=== PATIENT | female | born 1950 | race Caucasian/White ===

== ENCOUNTER → 2019-09-24 12:38 | Outpatient (CLI) | payer MEDICARE, SELFPAY ==
--- NOTE | 2019-09-24 12:48 | RAD_ITS ---
STUDY: X-RAY - THORACIC SPINE REASON FOR EXAM: Female, 68 years old. THORACIC BACK PAIN TECHNIQUE: 3 view(s) of the thoracic spine were obtained. COMPARISON: None. FINDINGS: Slightly increased upper thoracic kyphosis. There is no substantial scoliosis. Normal vertebral body height without osteolytic or blastic bone lesion. Mild to moderate degenerative disc narrowing at most thoracic levels with fairly extensive bridging spondylitic endplate changes at mid and lower thoracic levels. Atherosclerotic changes of the thoracic aorta. RAD/Thoracic Spine 3 Views IMPRESSION: Slightly increased upper thoracic kyphosis with otherwise normal alignment. Mild to moderate disc narrowing with extensive bridging spondylitic endplate changes of the mid and lower thoracic spine. Electronically Signed: Lois Sheets MD at 22:32 EST , Service support ,
--- NOTE | 2019-09-24 12:55 | RAD_ITS ---
STUDY: X-RAY - LUMBAR SPINE REASON FOR EXAM: Female, 68 years old. LOW BACK PAIN TECHNIQUE: 5 view(s) of the lumbar spine were obtained. COMPARISON: None FINDINGS: Normal lumbar lordosis. Minimal levocurvature of the lumbar spine. Slight degenerative anterolisthesis of L5. Normal vertebral body height without a fracture deformity. Mild disc narrowing at L1-L2. Moderate disc narrowing and spondylitic endplate changes at L2-3 and L3-4. Moderate degenerative disc narrowing and spondylitic endplate changes at L4-5 and L5-S1. Advanced posterior facet arthrosis particularly at L3, L4, L5 and S1. The soft tissue structures are unremarkable. RAD/L/S Spine Min 4 Views IMPRESSION: Slight levocurvature of the lumbar spine with a slight degenerative anterolisthesis of L5. Moderately advanced degenerative disc narrowing and spondylitic endplate changes at most lumbar levels below L2. Advanced hypertrophic facet arthrosis from L3 through S1. Electronically Signed: Lois Sheets MD at 22:30 EST , Service support ,
== END ==
PROVIDERS: Family Provider Family Medicine; PCP Family Medicine; Referring Provider Family Medicine; Visit Provider Family Medicine
DX: M54.6 Pain in thoracic spine (principal); M54.5 Low back pain
CPT/HCPCS: 72072; 72110

== ENCOUNTER 2019-11-11 14:00 | Outpatient (RCR) | payer MEDICARE, SELFPAY ==
--- NOTE | 2019-10-13 14:42 | HP.PTEVAL_ITS ---
Patient's Visit Information CARMEN RODRIGES is a 69 year old F referred to Physical Therapy by Mauricio Swain MD with a diagnosis of Right Hip Pain and Lumbar. Date of Evaluation: 10/13/19 Physical Therapist: Sita Saini DPT - Visit Plan Frequency: 2x /Week Duration: 4 Weeks Plan: Focus on LE and core s/s in an aquatic setting - Subjective Findings: Patient reports that she has problems with her right hip. 2014 injection in the hip and it has progressively gotten worse. Had x-rays which showed bone on bone and plans to have a THR. Not scheduled but plans to have one after therapy. Pain is located in the groin - pain does radiate into the back. Took to the wound center and his Dr. Santiago sent her to the ER to get an x-ray of the spine to rule out fracture- the MD put him on Prednisone which helped to decrease the inflammation. Describes the pain as sharp/shooting and dull and achy. No N/t in the LE. Worst: 07/15 Agg: getting into a car, rolling over in bed, putting on socks and shoes- lifting. Eases: prednisone, pain medication, laying down on her side with pillows under the right knee. Its hard to get there but once she is situated its not so bad- She uses 6 pillows- does not sleep all night- stress and pain. Does not use a cane or walker. Has 3 stairs to get into the house but then she is all on one floor. No loss or change in bowel or bladder. Retired in June- so she is no longer working- is trying to figure out whats next. 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 PMhx: Depression Meds: anti-depressents, - Objective Posture: poor in both sitting and standing- FH, RS increased kyphosis. Gait: antalgic- decreased stance on the right LE with knee buckling- no AD. HR/Tr: able. SLS: unable but does WS with pain. Stairs: non recip with 2 HR. Palpation: tender along paraspinals from thoracic through lumbar, gluts, greater troch and down the ITBand on the right. ROM: lumbar flexion: finger tips to knees, extn: neutral, SB: decreased by 75% rot: decreased by 75% pain with all motions. Hip: flexion: 90 degrees, IR/ER: neutral with pain, Extn: neutral, add/Abd: decreased by 25 % with pain, Knee/Ankle: WNL. Strength: Ankle: 5/5, Knee: 4+/5 HIp: 4-/5 wtih painful testing Core: poor. Flex: HS: severe, Gastroc: moderate. Special Test: screamed when she performed a seated to supine transfer and was unable to roll to her back. Dural Signs: positive on the right. Slump Test: positive - Goals Goal 1:: Patient will be I with HEP and progression Goal Time Frame: 4-6 Weeks Goal 2:: Patient will ambulate >300 feet with a normalized gait pattern Goal Time Frame: 4-6 Weeks Goal 3:: Patient will report 2/10 pain for 1 day Goal Time Frame: 4-6 Weeks Goal 4:: Patient will demo 4+/5 strength in LE Goal Time Frame: 4-6 Weeks Goal 5:: Patient will maintain proper posture t/o tx session to demo increased core s/s. Goal Time Frame: 4-6 Weeks - Rehabilitation Potential Physical Therapy Diagnosis: Patient presents with hypomobility- she has decreased ROM, strength, flex and muscular endurance leading to abnormal gait and increased pain with ADL's. Rehabilitation Potential: Fair - Anticipated Interventions Patient/Client Instruction: Educate patient on: Benefits of Fitness Program Therapeutic Exercise to Include: Strength training, Endurance training, Balance training, Coordination, Agility training, Body mechanics, Postural training, Flexibilty training, Gait and locomotor training, In an aquatic setting, Passive ROM, Active ROM, Dynamic Lumbar Stabilization For the Purpose of:: To improve muscle performance and motor function Thank you for the opportunity to evaluate your patient. For Medicare and Medicare HMO plans, please review the plan of care and approve it. It will need to be FAXED BACK to us at [phone] for Medicare purposes. For Medicare only, by signing this I certify the plan of care. Please let me know if there are questions or concerns regarding this plan of care. Physician Signature: Date:
--- NOTE | 2019-11-11 14:27 | HP.PTDCSUM_ITS ---
HP - PT D/C Summary It has been my pleasure to treat CARMEN RODRIGES under orders from Mauricio Swain MD, for the diagnosis of Right Hip Pain and Lumbar for a total of 9 visit(s). Discharge Date: Please see the following information for a summary of their discharge status. - Subjective Subjective: Patient reports that she feels like a whole new person. Very little pain and walking better. Her back pain is better and she is really happy. 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 - Pain R Hip Pain Intensity (Out of 10): 1 Lumbar Spine Pain Intensity (Out of 10): 1 - Overall Improvement % Improvement: 95 - Objective Objective/Function: Posture: fair in both sitting and standing. Gait: slightly antalgic- decreased stance on the right LE- much improved from IE- smoother pattern. HR/Tr: able. SLS: unable but does WS Stairs: recip with 1 HR. Palpation: tender along paraspinals from thoracic through lumbar, gluts, greater troch and down the ITBand on the right. ROM: lumbar flexion: finger tips to knees, extn: neutral, SB: decreased by 25% rot: decreased by 25% pain with all motions. Hip: flexion: 90 degrees, IR/ER: neutral with pain, Extn: neutral, add/Abd: decreased by 25 % with pain, Knee/Ankle: WNL. Strength: Ankle: 5/5, Knee: 5/5 Hip: 4+/5 Core: poor. Flex: HS: severe, Gastroc: moderate. Special Test:Transfers: indep no screaming. Dural Signs: positive on the right. Slump Test: positive - Goals Goal 1:: Patient will be I with HEP and progression Goal Progress: Goal Met Goal 2:: Patient will ambulate >300 feet with a normalized gait pattern Goal Progress: Progressing Goal 3:: Patient will report 2/10 pain for 1 day Goal Progress: Goal Met Goal 4:: Patient will demo 4+/5 strength in LE Goal Progress: Goal Met Goal 5:: Patient will maintain proper posture t/o tx session to demo increased core s/s. Goal Progress: Progressing - Plan Plan: Discharge to [facility] in the pool with farhat singh - D/C Information If there are questions or concerns regarding this patient's physical therapy, please feel free to call me at [phone]. Thank you for the referral of this patient. Sincerely, MATA FloresT
== END 2019-11-11 19:00 | disposition home or self-care (01) ==
LOC: PT 14:00
PROVIDERS: Family Provider Family Medicine; PCP Family Medicine; Referring Provider Orthopaedic Surgery; Visit Provider Orthopaedic Surgery
DX: M16.11 Unilateral primary osteoarthritis, right hip (principal); M54.41 Lumbago with sciatica, right side
CPT/HCPCS: 97113; 97161; 97164

== ENCOUNTER → 2019-11-12 13:24 | Outpatient (CLI) | payer MEDICARE, SELFPAY ==
[2019-11-12 13:59] LABS: Absolute Lymphocyte Count 1.87 X10^3/uL (0.83-4.51); Absolute Neutrophil Count 4.9 X10^3/uL (2.0-7.7); Basophil# 0.03 X10^3/uL; Basophil% 0.4 % (0-1); Eosinophil# 0.12 X10^3/uL; Eosinophils% 1.6 % (0-5); Hematocrit 44.9 % (37-47); Hemoglobin 14.9 g/dL (12.0-15.0); Lymphocyte # 1.87 X10^3/ul (4.0); Lymphocyte % 24.3 % (19-41); Mean Corp Hgb Conc 33.2 g/dL (32-36); Mean Corpuscular Hgb 30.3 pg (27.0-32.0); Mean Corpuscular Volume 91.4 fL (81-99); Mean Platelet Vol. 9.9 fl (6.2-12.0); Monocyte# 0.71 X10^3/uL; Monocyte% 9.2 % (0-10); NRBC Flagged by Analyzer 0 % (0-5); Neutrophil # 4.92 X10^3/uL (2.7-7.7); Neutrophil % 64.1 % (47-70); Platelet Count 234 K/mm3 (150-450); RBC Distribution Width CV 12.3 % (11.6-14.6); RBC Distribution Width SD 40.8 fl (35.1-43.9); Red Blood Count 4.91 M/mm3 (4.2-5.4); White Blood Count 7.7 K/mm3 (4.4-11.0)
[2019-11-12 14:24] LABS: AST(SGOT) 23 U/L (15-37); Alanine Aminotransfer ALT/SGPT 29 U/L (13-56); Albumin, Serum 4.2 g/dL (3.2-5.0); Alkaline Phosphatase 93 U/L (45-117); Anion Gap 2 (5-15); BUN 16 mg/dL (7-18); BUN/Creat Ratio 18.4 RATIO (10-20); Calcium,Total 9.2 mg/dL (8.5-10.1); Chloride 106 mmol/L (98-107); Cholesterol 164 mg/dL (200); Creatinine, Serum 0.87 mg/dL (0.55-1.02); EST Glomerular Filtration Rate 68 mL/min (>60); Est Glom Filt Rate - Afr Amer 83 mL/min (>60); Globulin 4.2 g/dL (2.2-4.2); Glucose 81 mg/dL (74-106); High Density Lipoprotein 64 mg/dL; Protein, Total 8.4 g/dL (6.4-8.2); Sodium Level 139 mmol/L (136-145); Triglycerides 94 mg/dL; Very Low Density Lipoprotein 19 mg/dL (5-40)
== END ==
PROVIDERS: PCP Family Medicine; Referring Provider Family Medicine; Visit Provider Family Medicine
DX: E78.5 Hyperlipidemia, unspecified (principal); Z51.81 Encounter for therapeutic drug level monitoring
CPT/HCPCS: 36415; 80053; 80061; 85025

== ENCOUNTER → 2020-06-15 08:38 | Outpatient (CLI) | payer MEDICARE, SELFPAY ==
[2020-06-15 08:44] LABS: Bacteria 0 SEEN /hpf (None Seen); Mucous, Urine 0 SEEN /hpf (<or=2+); Red Blood Cells-Urine 0 SEEN /hpf (0-5)
[2020-06-15 12:29] LABS: Absolute Lymphocyte Count 1.38 X10^3/uL (0.83-4.51); Absolute Neutrophil Count 3.4 X10^3/uL (2.0-7.7); Basophil# 0.02 X10^3/uL; Basophil% 0.4 % (0-1); Eosinophil# 0.07 X10^3/uL; Eosinophils% 1.3 % (0-5); Hemoglobin 14.7 g/dL (12.0-15.0); Lymphocyte # 1.38 X10^3/ul (4.0); Lymphocyte % 25.9 % (19-41); Mean Corp Hgb Conc 33.4 g/dL (32-36); Mean Corpuscular Hgb 30.8 pg (27.0-32.0); Mean Corpuscular Volume 92.1 fL (81-99); Mean Platelet Vol. 10.4 fl (6.2-12.0); Monocyte# 0.47 X10^3/uL; Monocyte% 8.8 % (0-10); NRBC Flagged by Analyzer 0 % (0-5); Neutrophil # 3.37 X10^3/uL (2.7-7.7); Neutrophil % 63.2 % (47-70); Platelet Count 237 K/mm3 (150-450); RBC Distribution Width CV 11.9 % (11.6-14.6); RBC Distribution Width SD 40.4 fl (35.1-43.9); Red Blood Count 4.78 M/mm3 (4.2-5.4); White Blood Count 5.3 K/mm3 (4.4-11.0)
[2020-06-15 13:04] LABS: Color, Urine Yellow (Yellow); Glucose, Dipstick Normal (Normal); Ketone-Dipstick Negative (Negative); Leukocyte Esterase-Dipstick 25 /ul (Negative); Nitrite-Dipstick Negative (Negative); Occult Blood-Urine 25 /ul (Negative); Protein-Dipstick Negative (Negative); Urine Bilirubin Dipstick Negative (Negative); Urine Clarity Clear (Clear); Urine Urobilinogen Normal (Normal)
[2020-06-15 13:09] LABS: Squamous Epithelial Cells - UA 0-5 SEEN /hpf (5-10); White Blood Cells 0-5 SEEN /hpf (0-5)
[2020-06-15 13:16] LABS: Erythrocyte Sedimentation Rate 19 mm/hr (0-30)
[2020-06-15 13:24] LABS: AST(SGOT) 22 U/L (15-37); Alanine Aminotransfer ALT/SGPT 27 U/L (13-56); Albumin, Serum 4.1 g/dL (3.2-5.0); Alkaline Phosphatase 88 U/L (45-117); Anion Gap 7 (5-15); BUN 15 mg/dL (7-18); BUN/Creat Ratio 17.9 RATIO (10-20); CRP 3.44 mg/L (0.0-3.0); Calcium,Total 8.9 mg/dL (8.5-10.1); Chloride 106 mmol/L (98-107); Creatinine, Serum 0.84 mg/dL (0.55-1.02); EST Glomerular Filtration Rate 71 mL/min (>60); Est Glom Filt Rate - Afr Amer 86 mL/min (>60); Glucose 96 mg/dL (74-106); Potassium 4.2 mmol/L (3.5-5.1); Protein, Total 8.1 g/dL (6.4-8.2); Sodium Level 139 mmol/L (136-145)
[2020-06-16 09:51] LABS: CMV Acute Antibody IgM < 30.0 AU/mL (0.0-29.9); CMV Antibody IgG < 0.60 U/mL (0.00-0.59)
[2020-06-16 18:44] LABS: ANTINUCLEAR ANTIBODIES DIRECT Negative (Negative)
[2020-06-18 07:42] LABS: EBV Acute VCA IgM < 36.0 U/mL (0.0-35.9); EBV Nuclear Antigen IgG > 600.0 U/mL (0.0-17.9)
== END ==
PROVIDERS: PCP Family Medicine; Visit Provider Family Medicine
DX: R59.0 Localized enlarged lymph nodes (principal); R68.83 Chills (without fever); R39.198 Other difficulties with micturition
CPT/HCPCS: 36415; 80053; 81001; 85025; 85652; 86038; 86140; 86225; 86235; 86644; 86645; 86664; 86665

== ENCOUNTER → 2020-06-26 11:17 | Outpatient (CLI) | payer MEDICARE, SELFPAY ==
--- NOTE | 2020-06-26 11:20 | US_ITS ---
STUDY: SUPERFICIAL ULTRASOUND - BILATERAL CERVICAL REGION. REASON FOR EXAM: Female, 69 years old. ENLARGED LYMPH NODES OF NECK TECHNIQUE: A superficial ultrasound was performed with real-time and static collado-scale imaging. COMPARISON: None. FINDINGS: Multiple cervical lymph nodes are seen. The largest on the right measures 1.5 cm x 1.2 cm x 0.7 cm. This has a benign appearance. The largest on the left cervical region measures 1.5 cm x 1.1 cm x 0.9 cm. The appeared to be benign as well. US/Head/Neck Soft Tissue IMPRESSION: Findings suggestive of benign-appearing bilateral cervical lymph nodes. Electronically Signed: Papo Cunningham, at 13:51 EDT , Service support ,
== END ==
PROVIDERS: PCP Family Medicine; Referring Provider Family Medicine; Visit Provider Family Medicine
DX: R59.0 Localized enlarged lymph nodes (principal)
CPT/HCPCS: 76536

== ENCOUNTER → 2020-07-17 13:41 | Outpatient (CLI) | payer MEDICARE, SELFPAY ==
[2020-07-05 12:09] VITALS: BMI 32.8
--- NOTE | 2020-07-17 13:46 | CT_ITS ---
HISTORY: RIGHT HIP REPLACEMENT. TECHNIQUE: Noncontrast bone protocol CT of the hips and knees was performed without contrast per preoperative planning protocol. 2D reformats were performed by the technologist. Number of images including paperwork: 1189. A radiation dose optimization technique was used for this scan. COMPARISON: None FINDINGS: BONES: No acute fracture. JOINTS: No subluxation. Severe degenerative changes of the right hip with joint space narrowing, subchondral sclerosis, some chondral cystic changes and osteophyte formation. Moderate degenerative changes of the left hip. Degenerative changes of the knees, severe in the medial compartments in moderate in the lateral and patellofemoral compartments.. Degenerative changes of the visible spine, sacroiliac joints and symphysis pubis. SOFT TISSUES: Unremarkable. FOREIGN BODY: No radiopaque foreign body. PELVIS: Colonic diverticulosis. Decompressed bladder. CT/Extremity Lower without Contra IMPRESSION: Degenerative changes of the hips and knees with severe degenerative changes of the right hip. Individualized dose optimization techniques were used for this CT. at 0557 Reported and signed by: Lety Rossi MD Electronically Signed: Lety Rossi MD at 5:57 EDT Tel , Service support ,
== END ==
PROVIDERS: PCP Family Medicine; Referring Provider Orthopaedic Surgery; Visit Provider Orthopaedic Surgery
DX: M16.11 Unilateral primary osteoarthritis, right hip (principal)
CPT/HCPCS: 73700

== ENCOUNTER 2020-08-01 14:44 | Observation (INO) | payer MEDICARE, SELFPAY ==
[2020-07-05 12:09] VITALS: BMI 32.8
--- NOTE | 2020-07-26 10:50 | EKG12_ITS ---
Test Reason : PRE OP Blood Pressure : / mmHG Vent. Rate : 073 BPM Atrial Rate : 073 BPM P-R Int : 134 ms QRS Dur : 078 ms QT Int : 400 ms P-R-T Axes : 049 -17 051 degrees QTc Int : 440 ms Normal sinus rhythm Left ventricular hypertrophy Abnormal ECG Confirmed by MARYCRUZ LY, ALAN ([id number]), editorial project manager EDWIN ANDRADE ([id number]) on 07/28/2020 11:12:40 AM Referred By: Gabino Sheikh Confirmed By:ALAN JOEL MD
[2020-07-26 11:46] LABS: Absolute Neutrophil Count 4.1 X10^3/uL (2.0-7.7); Basophil# 0.02 X10^3/uL; Basophil% 0.3 % (0-1); Eosinophil# 0.09 X10^3/uL; Eosinophils% 1.4 % (0-5); Hematocrit 43.6 % (37-47); Hemoglobin 14.5 g/dL (12.0-15.0); Lymphocyte % 23.8 % (19-41); Mean Corp Hgb Conc 33.3 g/dL (32-36); Mean Corpuscular Hgb 30.4 pg (27.0-32.0); Mean Corpuscular Volume 91.4 fL (81-99); Mean Platelet Vol. 9.8 fl (6.2-12.0); Monocyte# 0.62 X10^3/uL; Monocyte% 9.8 % (0-10); NRBC Flagged by Analyzer 0 % (0-5); Neutrophil # 4.05 X10^3/uL (2.7-7.7); Neutrophil % 64.4 % (47-70); Platelet Count 262 K/mm3 (150-450); RBC Distribution Width CV 11.8 % (11.6-14.6); RBC Distribution Width SD 39.5 fl (35.1-43.9); Red Blood Count 4.77 M/mm3 (4.2-5.4); White Blood Count 6.3 K/mm3 (4.4-11.0)
[2020-07-26 11:59] LABS: International Normalized Ratio 1.1; Partial Thromboplast Time 28.3 Seconds (24.1-36.2); Prothrombin Time (Protime)PT. 13.2 SECONDS (11.7-14.9)
[2020-07-26 12:07] LABS: Magnesium 2.1 mg/dL (1.6-2.6)
[2020-07-26 12:22] LABS: ALB/GLOB Ratio 0.8 RATIO (0.9-2.4); AST(SGOT) 21 U/L (15-37); Alanine Aminotransfer ALT/SGPT 26 U/L (13-56); Albumin, Serum 3.7 g/dL (3.2-5.0); Alkaline Phosphatase 87 U/L (45-117); Anion Gap 5 (5-15); BUN 16 mg/dL (7-18); BUN/Creat Ratio 17.7 RATIO (10-20); Calcium,Total 8.6 mg/dL (8.5-10.1); Chloride 104 mmol/L (98-107); Creatinine, Serum 0.91 mg/dL (0.55-1.02); EST Glomerular Filtration Rate 65 mL/min (>60); Est Glom Filt Rate - Afr Amer 79 mL/min (>60); Globulin 4.4 g/dL (2.2-4.2); Glucose 100 mg/dL (74-106); Potassium 4.2 mmol/L (3.5-5.1); Protein, Total 8.1 g/dL (6.4-8.2); Sodium Level 137 mmol/L (136-145)
[2020-08-01] VITALS (11 sets, daily range): BP systolic 108–154; BP diastolic 64–97; PULSE 69–86; RESP 14–18; TEMP 36.2–36.8; O2SAT 94–100; BMI 31.7
--- NOTE | 2020-08-01 07:26 | HP.PCM_ITS ---
History and Physical Date of Admission: 08/01/20 ADDENDUM Addendum entered and electronically signed by Gabino Sheikh DO 07/05/20 15:35: Assessment & Plan Problems 1. Primary osteoarthritis of right hip M16.11 2. DDD (degenerative disc disease), lumbosacral M51.37 3. Lumbar radiculopathy M54.16 4. Lumbar paraspinal muscle spasm M62.830 Plan - Dr. Gabino Sheikh DO Obtained X-rays of patient's BL hips and lumbar x-rays from 09/2019. Personally reviewed x-rays. There is no obvious fracture, dislocation, or lucency noted. Patient educated that she does have bone on bone OA of her right hip and she does have DDD of her lumbosacral area. Patient educated that her right groin pain is coming from the OA and the lower buttock pain is coming from the back. Patient educated that she can have a total right hip replacement and for the back she can trial PT or back bracing or NSAIDs. She was on prednisone about 2 months ago. Recommended a muscle relaxer today. Risks, benefits and alternatives of surgery reviewed including but not limited to bleeding, infection, nerve, artery and/or tissue damage, fracture, VTE, leg length discrepancy, dislocation, need for hip precautions, continued pain and expected post-operative course. Recommended use of the eWave Interactive robotic assist and this will require her to have a CT scan prior to surgery. The patient understands all the risks and does wish to proceed with written consent. Educ ated that she will need to follow the hip precautions after surgery because she is at an increased risk for hip dislocation after surgery D/T her back stiffness. It will take her about 2-3 months but 1-2 yrs for full recovery. We will need medical clearance from her PCP. Educated that she should not be changing her husbands chronic wound dressings d/t his wound being infected and we do not want any bacteria around her incision after surgery. Educated that she will need to ask her husbands PCP for home health care. Follow up 2 weeks post op or sooner if pain, swelling, numbness or associated symptoms, or concerns develop. All questions answered. Patient in agreement of plan. Orders Orders: HIP, UNI W/ Pelvis 2-3 Views Today M25.551, M25.552 Medications New: tizanidine 2 mg PO TID PRN 40 caps 0RF muscle spasticity Intake Vital Signs 07/05/20 Height 5 ft 6 in 07/05/20 Weight: 203 lb 07/05/20 BMI 32.8 Intake Visit Reasons: Bilat hips Accompanied by: Daughter Is patient in pain?: Yes Pain scale (1-10): 5 Allergies sulfamethoxazole [From Bactrim] Allergy (Mild, Verified 07/05/20 12:10) burning skin trimethoprim [From Bactrim] Allergy (Mild, Verified 07/05/20 12:10) burning skin Medications buspirone 10 mg tablet ea PO 07/05/20 [History Confirmed 07/05/20] citalopram 40 mg tablet mg PO 07/05/20 [History Confirmed 07/05/20] tizanidine 2 mg capsule 2 mg PO TID PRN #40 cap 07/05/20 [Rx Confirmed 07/05/20] tramadol 50 mg tablet mg PO 07/05/20 [History Confirmed 07/05/20] Is last menstrual period known: No PFSH Surgical History (Updated 07/05/20 @ 12:13 by Agnes Rush) H/O foot surgery (Acute) HPI Bilat hips: Details: Parts of this documentation were recorded by a scribe, this documentation accurately reflects the service provided and the decisions made by me, Dr. Gabino Sheikh, DO 07/05/20 [id number]. CARMEN RODRIGES is a 69 year old F NEW patient here today for BL hip pain. She is here today for a second opinion on her hip pain. She saw [facility] and was told she needs a right hip replacements. She states that she has BL hip pain she states that the right hip is worse and she was limping and she was supposed to have the right hip replaced and she went to PT and had help off on her surgery. She states that the left hip pain is new. She has BL lower buttock pain and right groin pain. She has pain with sitting and adduction or abduction of her right hip while she is in bed. She has had an injection of her right hip was over 6 months ago and was effective for a while. She does take tramadol and Aleve for her pain. Denies any radiating leg pain. Denies numbness, tingling or other associated symptoms. She also has lower back pain. Right hip pain has been increasing over the last 10 years. Left hip pain started over the last 3 months. Denies any left groin pain. Denies any back surgery or injections or injuries. She had tried home health aide caregiver and accupuncture. She has had prednisone for her back. ROS Musc Reports abnormal walking, Reports joint pain, Reports back pain, Reports joint swelling, Reports muscle weakness, Denies numbness, Denies radiating pain into limb, Reports stiffness, Denies tingling Skin/Breast Denies redness, Denies lesions, Denies itching, Denies rash, Denies skin swelling Neuro Yes abnormal walking, No numbness, No tingling Ortho Exam General General: Yes no acute distress Neurologic: Yes alert, Yes oriented x3 Psychologic: Yes reasonable and appropriate Right Hip Skin: No Ecchymosis, No soft tissue swelling, No Erythema Special Tests: No TTP Greater Troch, Yes FADIR, Yes FADER Navin test: 1 Homans Sign: No HIP: 0 internal rotation with groin pain 15 external rotation with groin pain Left Hip Skin/Wound: No Ecchymosis, No soft tissue swelling, No Erythema Hip: Absent eccymosis, soft tissue swelling or erythema HIP: TTP over sacroiliac area iliosacral junction pain 10 internal roation without groin pain 80 external rotation Supplemental Info 07/05/2020 x-ray right hip advanced arthrosis with subchondral sclerosis large bone spurs 09/24/2019 x-ray lumbar spine: Moderately advanced Degenerative disc disease lower lumbar spine worse L5-S1 facet arthrosis AdvancedAdvanced lower lumbar multilevel, Anterior listhesis L5 Assessment & Plan Problems 1. Primary osteoarthritis of right hip M16.11 2. DDD (degenerative disc disease), lumbosacral M51.37 3. Lumbar radiculopathy M54.16 4. Lumbar paraspinal muscle spasm M62.830 Plan Obtained X-rays of patient's BL hips and lumbar x-rays from 09/2019. Personally reviewed x-rays. There is no obvious fracture, dislocation, or lucency noted. Patient educated that she does have bone on bone OA of her right hip and she does have DDD of her lumbosacral area. Patient educated that her right groin pain is coming from the OA and the lower buttock pain is coming from the back. Patient educated that she can have a total right hip replacement and for the back she can trial PT or back bracing or NSAIDs. She was on prednisone about 2 months ago. Recommended a muscle relaxer today. Risks, benefits and alternatives of surgery reviewed including but not limited to bleeding, infection, nerve, artery and/or tissue damage, fracture, VTE, leg length discrepancy, dislocation, need for hip precautions, continued pain and expected post-operative course. Recommended use of the eWave Interactive robotic assist and this will require her to have a CT scan prior to surgery. The patient understands all the risks and does wish to proceed with written consent. Educated that she will need to follow the hip precautions after surgery because she is at an increased risk for hip dislocation after surgery D/T her back stiffness. It will take her about 2-3 months but 1-2 yrs for full recovery. We will need medical clearance from her PCP. Educated that she should not be changing her husbands chronic wound dressings d/t his wound being infected and we do not want any bacteria around her incision after surgery. Educated that she will need to ask her husbands PCP for home health care. Follow up 2 weeks post op or sooner if pain, swelling, numbness or associated symptoms, or concerns develop. All questions answered. Patient in agreement of plan. Orders Orders: HIP, UNI W/ Pelvis 2-3 Views Today M25.551, M25.552 Medications New: tizanidine 2 mg PO TID PRN 40 caps 0RF muscle spasticity Coding Level of Care Code Off vis,new,level 3 Diagnoses Primary osteoarthritis of right hip M16.11 DDD (degenerative disc disease), lumbosacral M51.37 Lumbar radiculopathy M54.16 Lumbar paraspinal muscle spasm M62.830 I have re-examined the patient. There are no clinical changes since date of exam
[2020-08-01 07:40] LABS: Bedside Glucose 103 mg/dL (70-110)
[2020-08-01] MEDS: Lactated Ringers 1,000 ML 999 ML IV (07:52)
[2020-08-01] MEDS: Acetaminophen 500 MG Tablet 1000 MG PO ×2 (07:53→21:06)
[2020-08-01] MEDS: Gabapentin 600 MG Tablet PO (07:58)
[2020-08-01] MEDS: Celecoxib 200 MG Capsule 400 MG PO (07:58)
[2020-08-01] MEDS: Scopolamine 1mg/72hr Patch 1 PATCH TRANSDERM. (07:59)
[2020-08-01] MEDS: Cefazolin 2 GM in 0.9% Normal Saline 100 ML IV (12:15)
[2020-08-01] MEDS: dexAMETHasone 10 MG/ML Vial IV (12:48)
[2020-08-01] MEDS: Lactated Ringers 1,000 ML 125 ML IV (15:41)
--- NOTE | 2020-08-01 15:44 | RAD_ITS ---
STUDY: X-RAY - PELVIS AND RIGHT HIP REASON FOR EXAM: Female, 69 years old. TOTAL HIP WITH ANA, TECHNIQUE: 2 views of the pelvis and hip. COMPARISON: None. FINDINGS: Limited visualization of the iliac wings, sacroiliac joints and sacrum. Normal bilateral superior and inferior pubic rami. Normal pubic symphysis. Normal bilateral ischial tuberosities. There is a right hip prosthesis in satisfactory alignment. Post surgical changes in the adjacent soft tissue. Normal left hip. RAD/Hip Min 2 Views (Portable) IMPRESSION: Status post total right hip replacement with postsurgical changes. Electronically Signed: Lavell Amaya DO at 22:10 EDT Tel [phone], Service support ,
--- NOTE | 2020-08-01 15:44 | OP.PCM_ITS ---
Report of Operation Date of Procedure: 08/01/20 Description of Surgical Findings:: Preoperative diagnosis: Right hip DJD Postoperative diagnosis: Same Procedure: CT-guided Makoplasty assisted right total hip arthroplasty Implants: Anna Accolade II stem size 4, 132 degree neck angle 0 neck length 54 mm Trident II acetabular shell with 25 mm cancellous screw 36 mm ceramic head Anesthesia: Spinal, general she was given spinal however to delay in surgery it was felt safest to proceed with general once the case actually started EBL: 150 cc Complications: None Condition: Stable to PACU Indication for procedure: This is a 69-year-old female who has had long-standing arthrosis of the hip who has failed conservative treatment and wished to undergo total hip arthroplasty. We did discuss operative versus nonoperative intervention including risks of bleeding, infection , nerve artery tissue damage, need for further surgery, fracture, leg length discrepancy dislocation blood clot and need for postoperative physical therapy and postoperative expectations. An informed consent was signed. Procedure: Patient was met in the preoperative holding area once again the operative extremity was identified by both patient and physician and was marked. Patient was met by anesthesia general anesthesia was started. patient was then positioned in the lateral decubitus position on a well-padded pegboard with an axillary roll. All bony prominences were checked and padded. The patient was prepped and draped in the usual sterile fashion. A timeout was called to ensure the proper patient procedure and extremity were being contemplated. Anatomic landmarks were palpated and marked for a standard posterior lateral approach. Prior to this the ASIS was palpated and 3 fingerbreadths proximal to this 3 pins were placed at a 45 degree angle into the iliac crest with good purchase, stab incisions were made with a 15 blade into the skin prior to placement. The Makoplasty array was then secured. A 10 blade scalpel was used to make a posterior incision through the skin and subcutaneous tissue. retractors were used and electrocautery was used to maintain meticulous hemostasis and dissect full-thickness flaps until the gluteal fascia was reached. The gluteal fascia was incised in line with the gluteal fibers. The bursal tissue was then freed from the underside and a Charnley retractor was placed. The femoral trochanteric checkpoint was placed and leg length was assessed using the trochanteric checkpoint and an EKG lead that was placed on the knee prior to prepping the leg .the fat pad was then elevated off of the external rotators with electrocautery and the external rotators were dissected off of the greater trochanter including the piriformis and were tagged with #1 Ethibond for later repair. The joint capsule opened with posterior trapdoor technique. The hip was surgically dislocated. The measurement on the preoperative CT from the top of the lesser trochanter to the femoral neck cut was marked Hohmann was placed around the lesser trochanter. A neck cutting guide was used to barrett the neck with a Bovie and an oscillating saw was used complete the femoral neck cut. The femoral head was then removed and sized. We then turned our attention to the acetabulum. A Bovie was used to make a perforation in the anterior joint capsule and a Medel retractor was placed this was repeated in the 6 o'clock position and a wide mely was placed there. With a long handled knife the labr al and pulvinar tissue were removed. We then registered the acetabulum with the pointing array and confirmed our landmarks. Once the socket was thoroughly prepared and labral tissue pulmonary was removed we single reamed with the robotic arm. We then used the robotic arm to position the acetabular implant and impacted it into place under robotic guidance. We then proceeded to place a posterior superior screw by drilling first measuring and inserting the screw. We then inserted a trial liner. And turned our attention back to the femur at this point a femoral elevator was used. As well as a pointed wide Hohmann around the lesser trochanter and a Hohmann to help retract the gluteus medius. A box chisel was used to remove excess lateral neck followed by a canal finder and a lateralizing reamer. This was followed by sequential broaches. Attention was made of the version within the canal based on preoperative templating. Once the final broach was seated we then trialed reduced the hip it was determined that a 132 degree neck angle with a 0 neck length was the appropriate size. We then checked stability with shuck testing as well as flexion and internal rotation. then proceeded with hip extension and checked leg lengths at the knees and heels as well as with the trochanteric checkpoint and knee EKG lead. At this point trials were removed. A liner was inserted to the cup. The femoral stem was inserted. We re-trialed and then proceeded to impact the femoral head onto the Harpal taper. We then surgically reduce the hip check stability again and leg lengths and were satisfied. Betadine rinse was allowed to sit for 5 minutes while everyone changed their gloves. Thorough irrigation was performed. Followed by closure of the external rotators with #2 FiberWire followed by closure of gluteal fascia with #1 Ethibond. 0 Vicryl fat stitches and 2-0 Vicryl subcutaneous stitches and norah in the skin. A pulls were placed in the pin sites over the iliac crest with Xeroform 4 x 4 and OpSite. dressing was applied to incisional area with Mepilex Ag and an abduction pillow was placed. Patient tolerated the procedure well there was no intraoperative complications all counts were correct and the patient was brought back to the PACU in stable condition
[2020-08-01] MEDS: Cefazolin 1 GM/50 ML BAG IV (21:00)
[2020-08-01] MEDS: Ketorolac 15 MG/ML Vial IV (21:05)
[2020-08-01] MEDS: Senna/Docusate Sodium 1 Tablet 2 TABLET PO (21:06)
[2020-08-02] MEDS: 0.9% Saline Lock 10 ML Syringe IV ×3 (00:23→11:37)
[2020-08-02] MEDS: oxyCODONE 5 MG Tablet PO ×6 (00:29→22:43)
[2020-08-02 00:31] VITALS: BP 114/67; PULSE 90; RESP 18; TEMP 36.6; O2SAT 94
[2020-08-02 04:48] VITALS: BP 108/61; PULSE 83; RESP 18; TEMP 37.1; O2SAT 98
[2020-08-02] MEDS: Cefazolin 1 GM/50 ML BAG IV ×2 (04:51→11:37)
[2020-08-02] MEDS: APIXABAN 2.5 MG TABLET PO ×2 (06:09→18:01)
[2020-08-02] MEDS: Acetaminophen 500 MG Tablet 1000 MG PO ×3 (06:09→22:24)
[2020-08-02 07:04] LABS: Hematocrit 37.6 % (37-47); Hemoglobin 12.3 g/dL (12.0-15.0); Mean Corp Hgb Conc 32.7 g/dL (32-36); Mean Corpuscular Hgb 30.5 pg (27.0-32.0); Mean Corpuscular Volume 93.3 fL (81-99); Mean Platelet Vol. 9.8 fl (6.2-12.0); Platelet Count 229 K/mm3 (150-450); RBC Distribution Width CV 12.1 % (11.6-14.6); RBC Distribution Width SD 41.7 fl (35.1-43.9); Red Blood Count 4.03 M/mm3 (4.2-5.4); White Blood Count 12.3 K/mm3 (4.4-11.0)
[2020-08-02 07:25] LABS: Anion Gap 4 (5-15); BUN 15 mg/dL (7-18); BUN/Creat Ratio 15.2 RATIO (10-20); Calcium,Total 8.3 mg/dL (8.5-10.1); Chloride 108 mmol/L (98-107); Creatinine, Serum 0.98 mg/dL (0.55-1.02); EST Glomerular Filtration Rate 59 mL/min (>60); Est Glom Filt Rate - Afr Amer 72 mL/min (>60); Estimated Creatinine Clearance 51.94 ml/min; Glucose 122 mg/dL (74-106); Potassium 4.4 mmol/L (3.5-5.1); Sodium Level 138 mmol/L (136-145)
[2020-08-02 08:12] VITALS: BP 105/57; PULSE 74; RESP 18; TEMP 37; O2SAT 98
--- NOTE | 2020-08-02 08:23 | NURSING ---
adjusted temp on [facility] machine
--- NOTE | 2020-08-02 08:45 | PCM.PN.ORT ---
Subjective: Patient is doing okay she has been up to chair but has not done physical therapy as of my rounding. Pain is controlled while sitting and slept well no other complaints. - Physical Exam Vitals/I&O's: Vital Signs Temp Pulse Resp BP Pulse Ox 98.6 F 74 18 105/57 L 98 08/02/20 08:12 08/02/20 08:12 08/02/20 08:12 08/02/20 08:12 08/02/20 08:12 Oxygen Flow Rate (L/min) 6 Oxygen Delivery Method Room Air Weight: 202 lb 13.204 oz Body Mass Index (BMI) 31.7 Intake and Output for Last 24 Hours 07/31/20 08/01/20 08/02/20 23:59 23:59 23:59 Intake Total 2050.08 / 2050.08 1185.42 / 1185.42 Output Total 850 / 850 1275 / 1275 Balance 1200.08 / 1200.08 -89.58 / -89.58 General: Alert, Oriented x3, Cooperative, No apparent distress Extremities: - - Dressing on clean dry and intact compartment soft neurovascular intact Laboratory Results 08/02/20 06:26: WBC 12.3 H, RBC 4.03 L, Hgb 12.3, Hct 37.6, MCV 93.3, MCH 30.5, MCHC 32.7, RDW Std Deviation 41.7, RDW Coeff of Sachin 12.1, Plt Count 229, MPV 9.8 08/02/20 06:26: Sodium 138, Potassium 4.4, Chloride 108 H, Carbon Dioxide 26.0, Anion Gap 4 L, BUN 15, Creatinine 0.98, Estim Creat Clear Calc 51.94, Est GFR (MDRD) Af Amer 72, Est GFR (MDRD) Non-Af 59 L, BUN/Creatinine Ratio 15.2, Glucose 122 H, Calcium 8.3 L Current Medications Acetaminophen (Acetaminophen 500 Mg Tablet) 1,000 mg PO Q8 [facility] Last Admin: 08/02/20 06:09 Dose: 1,000 mg Documented by: Apixaban (Apixaban 2.5 Mg Tablet) 2.5 mg PO BID@0700,1900 [facility] Last Admin: 08/02/20 06:09 Dose: 2.5 mg Documented by: Buspirone HCl (Buspirone 5 Mg Tablet) 10 mg PO DAILY [facility] Cefazolin Sodium () 1 gm in 50 mls @ 100 mls/hr IV Q8H [facility] Stop: 08/02/20 12:29 Last Infusion: 08/02/20 05:24 Dose: Infused Documented by: Sodium Chloride () 250 mls @ 15 mls/hr IV .[id number] PRN PRN Reason: Saline Flush Sodium Chloride () 250 mls @ 15 mls/hr IV .[id number] PRN PRN Reason: Additional IVPB Infusion Influenza Virus Vaccine Quadrival (Influenza Vaccine (6mos+)/Pf 0.5 Ml Syringe) 0.5 ml IM .ONCE ONE Stop: 08/02/20 10:01 Ketorolac Tromethamine (Ketorolac 15 Mg/Ml Vial) 15 mg IV Q6H PRN PRN PRN Reason: Pain Score 1-5 Stop: 08/03/20 14:43 Last Admin: 08/01/20 21:05 Dose: 15 mg Documented by: Ondansetron HCl (Ondansetron 4 Mg/2 Ml Vial) 4 mg IV Q6H PRN PRN PRN Reason: NAUSEA Oxycodone HCl (Oxycodone 5 Mg Tablet) 5 - 10 mg PO Q4H PRN PRN PRN Reason: Pain Score 4-10 Last Admin: 08/02/20 06:09 Dose: 10 mg Documented by: Senna/Docusate Sodium (Senna/Docusate Sodium 1 Tablet) 2 tablet PO BID [facility]AN[facility]A Last Admin: 08/01/20 21:06 Dose: 2 tablet Documented by: Sodium Chloride (0.9% Saline Lock 10 Ml Syringe) 10 - 40 ml IV UD PRN PRN Reason: SALINE FLUSH Last Admin: 08/02/20 04:51 Dose: 10 ml Documented by: Tizanidine HCl (Tizanidine Hcl 2 Mg Tablet) 2 mg PO TID PRN PRN Reason: muscle spasticity Medical Necessity - Tobacco Use Smoking Status: Never smoker Tobacco Use: Non-smoker Assessment/Plan Postop day #1 right total hip arthroplasty. Doing well pain controlled ice machine not cooling will discussed with nursing. Patient will require physical therapy this a.m. and if comfortable and safe will be discharged home. DVT prophylaxis teds and Eliquis x3 weeks. Follow-up in the office 2 weeks
--- NOTE | 2020-08-02 08:51 | PCM.DC.ORTHO ---
Discharge Diet: No Restrictions Weight Bearing Status: Weight bearing as tolerated Keep extremity elevated above heart level: Operative Extremity Call your doctor if you observe: Shortness of breath, Chest pain Additional Instructions: Begin daily showering warm water antibacterial soap postop day #3( 72hrs Post-operatively) and then daily. Leave the dressing on for 72 hours postoperatively then may remove prior to first shower and change dressing daily after this until no drainage for 2 consecutive days then may leave open to air. Follow hip precautions that were reviewed in hospital. Wear compression stockings, may remove at night. Start physical therapy as directed in hospital. Call Dr. Sheikh's office with any concerns. Allergies/Adverse Reactions: Allergies sulfamethoxazole [From Bactrim] Allergy (Mild, Verified 08/01/20 07:22) burning skin trimethoprim [From Bactrim] Allergy (Mild, Verified 08/01/20 07:22) burning skin thiopental [From Pentothal] Allergy (Verified 08/01/20 07:22) Anaphylaxis Medications to take at Discharge buspirone 10 mg tablet 10 mg PO DAILY 07/05/20 citalopram 40 mg tablet 40 mg PO DAILY 07/05/20 tizanidine 2 mg capsule 2 mg PO TID PRN #40 cap 07/05/20 Multivit with Calcium,Iron,Min [Multiple Vitamins For Women] 1 ea PO DAILY 07/17/20 Acetaminophen [Tylenol] 1,000 mg PO Q8 #100 tab 08/02/20 Apixaban [Eliquis] 2.5 mg PO BID@0700,1900 #42 tab 08/02/20 Oxycodone [Oxyir] 5 - 10 mg PO Q4H PRN PRN #60 tablet 08/02/20 The following prescriptions were given: Apixaban [Eliquis] 2.5 mg PO BID@0700,1900 #42 tab Transmission Status: Pending to [facility] Oxycodone [Oxyir] 5 - 10 mg PO Q4H PRN PRN #60 tablet PRN Reason: Pain Score 4-10 Transmission Status: Sent to [facility] Acetaminophen [Tylenol] 1,000 mg PO Q8 #100 tab Transmission Status: Pending to [facility] Primary Care Physician: Leslie Santiago DO [Primary Care Provider] - Test Results: Test results from this visit will be discussed in further detail at your follow-up appointment, if applicable. Please Follow Up With: Gabino Sheikh DO - 2 weeks
[2020-08-02] MEDS: busPIRone 5 MG Tablet 10 MG PO (10:06)
[2020-08-02] MEDS: Senna/Docusate Sodium 1 Tablet 2 TABLET PO ×2 (10:06→22:24)
--- NOTE | 2020-08-02 10:15 | CASEMGMT ---
DESHAUN FUENTES Face to Face with patient for initial transition planning/care coordination assessment. DESHAUN FUENTES introduced self and role at [facility]. Patient sitting in chair, alert and oriented. Patient willing to participate in assessment and is able to answer all questions appropriately. Care providers, pharmacy, and demographics verified. Patient wishes to discharge home and is setup with [facility] for outpatient therapy. Patient states she has no further needs or concerns at this time. CM to follow for discharge planning needs that may arise. PCP: Jack Specialists: [facility] Pharmacy: [facility] Insurance: [employer] [facility] Prescription Benefit: yes Living Will/HPOA: yes, Deepak Hassan LNOK: , daughter Living Arrangements: patient lives with in a single story home with 5 steps and railing to enter the home. Patient was independent at home prior to surgery. Transportation: , daughter DME/HHC: patient states she has a rollator. Therapy recommending [facility]. Patient prefers [facility] for DME. Patient is setup with [facility] for outpatient therapy starting tomorrow. DESHAUN FUENTES called Dr. Sheikh's office and requested script for [facility] be faxed to this CM. When script received, will send referral to [facility] and arrange for delivery to patient's room prior to discharge. Disposition Plan: Patient to discharge home with outpatient therapy, family support, and follow-up plans in place. Chante ESTRADA, RN, CM
--- NOTE | 2020-08-02 11:00 | CASEMGMT ---
RN GINA received script for [facility]. Referral made to [facility] and arranged for deliver of walker to patient's room prior to discharge.
--- NOTE | 2020-08-02 11:47 | NURSING ---
CLARISSA WALKER DELIVERED BY [facility]
--- NOTE | 2020-08-02 14:00 | NURSING ---
discharge discussed w/ patient. pt verbalized she feels unsafe to go home at this time. states she has a disabled at home whom will not be able to assist her and asking about staying tonight. noted patient requiring cuing with assistance with walker and slightly unsteady. informed pt will page Dr. Sheikh to discuss discharge.
[2020-08-02 14:05] VITALS: BP 115/64; PULSE 73; RESP 18; TEMP 36.9; O2SAT 95
[2020-08-02] MEDS: tiZANidine HCl 2 MG Tablet PO (18:14)
[2020-08-02 19:53] VITALS: BP 112/57; PULSE 79; RESP 18; TEMP 36.9; O2SAT 94
[2020-08-03 02:30] VITALS: BP 104/56; PULSE 79; RESP 18; TEMP 36.6; O2SAT 93
[2020-08-03] MEDS: APIXABAN 2.5 MG TABLET PO (06:04)
[2020-08-03] MEDS: Acetaminophen 500 MG Tablet 1000 MG PO ×2 (06:04→13:06)
[2020-08-03] MEDS: 0.9% Saline Lock 10 ML Syringe IV (06:37)
[2020-08-03 06:55] LABS: Hematocrit 37.8 % (37-47); Hemoglobin 11.8 g/dL (12.0-15.0); Mean Corp Hgb Conc 31.2 g/dL (32-36); Mean Corpuscular Hgb 30.1 pg (27.0-32.0); Mean Corpuscular Volume 96.4 fL (81-99); Mean Platelet Vol. 9.7 fl (6.2-12.0); Platelet Count 189 K/mm3 (150-450); RBC Distribution Width CV 12.6 % (11.6-14.6); RBC Distribution Width SD 44.9 fl (35.1-43.9); Red Blood Count 3.92 M/mm3 (4.2-5.4); White Blood Count 9.8 K/mm3 (4.4-11.0)
[2020-08-03 08:30] VITALS: BP 122/70; PULSE 84; RESP 18; TEMP 36.8; O2SAT 96
--- NOTE | 2020-08-03 09:45 | CASEMGMT ---
DESHAUN FUENTES in to discuss HARTMAN form with patient. RN GINA explained HARTMAN form to patient, patient voiced understanding. Patient signed HARTMAN form and filed in chart. Patient provided copy of signed HARTMAN form. Patient had no further questions or concerns at this time.
[2020-08-03] MEDS: busPIRone 5 MG Tablet 10 MG PO (10:48)
== END 2020-08-03 13:22 | disposition home or self-care (01) ==
LOC: SDC 14:52 → MS3 14:52
PROVIDERS: Anesthesiology; Admitting Provider Orthopaedic Surgery; PCP Family Medicine; Referring Provider Orthopaedic Surgery; Visit Provider Orthopaedic Surgery
PROC: 8E0Y0CZ Robotic Assisted Procedure of Lower Extremity, Open Approach (ICD-10-PCS; CPT 27130; principal; 2020-08-01 09:30)
DX: M16.11 Unilateral primary osteoarthritis, right hip (principal); Z20.828 Contact with and (suspected) exposure to other viral communicable diseases; Z23 Encounter for immunization; M51.17 Intervertebral disc disorders with radiculopathy, lumbosacral region; Z79.899 Other long term (current) drug therapy; M62.830 Muscle spasm of back; F32.9 Major depressive disorder, single episode, unspecified; Z86.718 Personal history of other venous thrombosis and embolism; Z86.19 Personal history of other infectious and parasitic diseases; G47.30 Sleep apnea, unspecified
CPT/HCPCS: 01214; 27130; S2900; 36415; 73502; 80048; 80053; 82962; 83735; 85025; 85027; 85610; 85730; 86850; 86900; 86901; 87081; 87635; 93005; 96361; 96365; 96366; 96375; 97110; 97116; 97162; 97166; 97530; 97535; 99218; 99251; C1713; C1776; C9803; G0008; J7050; J7120; 90686; A4216; G0378; G0379; G0463; J2405; U0003

== ENCOUNTER 2020-08-09 10:24 | Emergency (ER) | payer MEDICARE, SELFPAY ==
[2020-08-01 16:45] VITALS: BMI 31.7
[2020-08-09 10:25] VITALS: BP 145/79; PULSE 79; RESP 17; TEMP 36.4; O2SAT 97; BMI 32.3
--- NOTE | 2020-08-09 10:44 | ED.DCSUM_ITS ---
History of Present Illness Chief Complaint: Nausea/Vomiting Informant: Patient Onset: Weeks - 1 Context: Gradual Onset Timing: Continuous Quality: nausea Location: abd Current Severity: Severe Maximum Severity: Severe Worsened by: taking oxycodone Relieved by: nothing but hasn't tried any meds yet Associated Symptoms: yesterday, RLQ burning abd pain Narrative: Patient had arthritis in the right hip and had a total hip arthroplasty less than 1 week ago, she has been taking oxycodone for the pain, and has been nauseated since the surgery. Every time she takes oxycodone, the nausea gets worse. Therefore she decreased the dose that she has been taking. She has had some recent discharge from her surgical wound. Nausea became severe yesterday, and at one point she developed sudden onset burning right lower quadrant discomfort that is not as bad now but still present. She called her doctor, she was seen by her orthopedic physician Dr. Sheikh this morning, told that the wound looks good without any signs of infection, and recommended that she take the nausea medication that was prescribed to her yesterday that she has not obtained quite yet. Instead of getting this medication, she states that she feels so sick that she presents here to the ER for evaluation and treatment. She has been urinating, and without difficulty. She has had a decreased appetite due to the nausea, and has been drinking some fluids but thinks that she probably needs more. She had a prior appendectomy, D&C, no other abdominal surgeries that she can recall at this time. She denies any chest pain, shortness of breath, cough, fevers, but has had some headache. - Past Medical History (1) Osteoarthritis of right hip Status: Chronic Past Medical History - Allergies and Home Meds Allergies/Adverse Reactions: Allergies sulfamethoxazole [From Bactrim] Allergy (Mild, Verified 08/09/20 10:25) burning skin trimethoprim [From Bactrim] Allergy (Mild, Verified 08/09/20 10:25) burning skin thiopental [From Pentothal] Allergy (Verified 08/09/20 10:25) Anaphylaxis Primary Care Physician: Leslie Santiago DO [Primary Care Provider] - Smoking Status: Never smoker Review of Systems General: Reports: Malaise. Denies: Chills, Fever, Sweats Eyes: Denies: Visual changes - bilaterally, Diplopia ENT: Denies: Bilateral ear pain, Rhinorrhea, Sore throat Cardiovascular: Denies: Chest pain, Palpitations Respiratory: Denies: Dyspnea, Cough, Dyspnea on exertion Gastrointestinal: Reports: Abdominal pain, Nausea. Denies: Diarrhea, Melena, Hematochezia Genitourinary: Denies: Dysuria, Hematuria, Frequency Musculoskeletal: Reports: Extremity Pain - R hip postoperative -- not uncontrolled. Denies: Neck pain, Back pain, Swelling Skin: Reports: Wounds - w/ occasional discharge, right hip surgical wound. Denies: Rash Neurological: Reports: Headache - can't describe. Denies: Weakness, Numbness Physical Exam Vital Signs/Narrative: Vital Signs Temp Pulse Resp BP Pulse Ox 08/09/20 10:25 97.5 F L 79 17 145/79 H 97 Inital Vital Signs reviewed: Yes General: Well nourished, Well developed, No Acute Distress Head: Normocephalic, Atraumatic Eyes: Perrl, EOMI ENT: Moist mucous membranes, No rhinorrhea Neck: Supple, Nontender Cardiovascular: Regular rate, Regular rhythm, No murmurs. Negative for: Tachycardia Respiratory: No distress, CTA bilaterally, Chest nontender Abdomen: Soft, Nondistended, Normal bowel sounds, Tender - RLQ only, Guarding - involuntary, inconsistent. Negative for: Rebound tenderness Back: Nontender, Normal Inspection. Negative for: CVA tenderness Extremities: Nontender, No edema Skin: Normal color, No rash, No Trauma, - - Right hip surgical wounds x2 clean, dry, intact, no sign of erythema/infection, no discharge expressible, norah all intact, no dehiscence. Neurological: Alert, Oriented x3, Cranial nerves II-XII grossly intact, Normal Strength, Normal Sensation, Normal Gait - While using walker Psychological: - - Very anxious Diagnostic/Tx/Re-eval Impressions Brain CT 08/09/20 10:47 IMPRESSION: Chronic involutional changes of the brain. Electronically Signed: Papo Cunningham, at 12:21 EST , Service support , Abdomen/Pelvis CT 08/09/20 11:20 IMPRESSION: 3 mm calculus in the proximal left ureter causing a mild degree of left hydronephrosis and hydroureter. Electronically Signed: Papo Cunningham, at 12:23 EST , Service support , 08/09/20 10:47 CT Brain [Brain/Head without Contrast] [CT] Stat 08/09/20 11:20 Abdomen/Pelvis without Cont [CT] Stat Laboratory Results 08/09/20 08/09/20 08/09/20 11:05 11:05 13:05 WBC 8.2 RBC 3.95 L Hgb 12.0 Hct 37.2 MCV 94.2 MCH 30.4 MCHC 32.3 RDW Std Deviation 42.4 RDW Coeff of Sachin 12.2 Plt Count 284 MPV 9.2 Immature Gran % (Auto) 1.700 H Neut % (Auto) 78.4 H Lymph % (Auto) 9.8 L [place] % (Auto) 8.4 Eos % (Auto) 1.5 Baso % (Auto) 0.2 Absolute Neuts (auto) 6.5 Absolute Lymphs (auto) 0.81 L Nucleated RBC % 0 Sodium 138 Potassium 4.2 Chloride 105 Carbon Dioxide 30.0 Anion Gap 3 L BUN 16 Creatinine 0.89 Estim Creat Clear Calc 55.06 Est GFR (MDRD) Af Amer 81 Est GFR (MDRD) Non-Af 67 BUN/Creatinine Ratio 18.0 Glucose 103 Calcium 8.8 Total Bilirubin 0.50 AST 21 ALT 28 Alkaline Phosphatase 85 Troponin I < 0.015 Total Protein 7.5 Albumin 3.1 L Globulin 4.4 H Albumin/Globulin Ratio 0.7 L Lipase 92 Urine Color Yellow Urine Clarity Clear Urine pH 6.5 Ur Specific [place] 1.010 Urine Protein Negative Urine Glucose (UA) Normal Urine Ketones Negative Urine Occult Blood 10 H Urine Nitrite Negative Urine Bilirubin Negative Urine Urobilinogen Normal Ur Leukocyte Esterase Negative Urine RBC 0 SEEN Urine WBC 0 SEEN Ur Squamous Epith Cells 0-5 SEEN Urine Bacteria 0 SEEN Urine Mucus 0 SEEN - Rhythm Strip Rhythm Strip: Sinus Rhythm Rate: 71 Ectopy: None - EKG Initial EKG Interpretation: Sinus Rhythm, No Acute Injury Pattern - unremarkable EKG - Medical Decision Making Patient treated with IV fluids and Zofran. She feels much better on reevaluation. Interestingly, she has ureterolithiasis on the left although she was not having any pain on the left, just on the right. It is proximal ureter and 3 mm as above. Expectant management indicated for this, urinalysis shows no signs of infection, there is microscopic hematuria, she is also anticoagulant with no gross blood in her urine. She feels much better and slept for an hour or 2 in the ER, states this is the first sleep she has gotten recently. She has nausea medicine to pick pulling machine tender. She was given urine strainers for using at home so she knows when she passes the stone. We discussed reasons to return, she was given urologic follow-up that she will unlikely need urgently for the stone unless something changes which I also discussed with her. Again, she states that her pain is well controlled in her right hip right now, and she is very comfortable on reexamination. She does have pain medication to take at home, she knows to use the lowest effective amount. ED Disposition - Plan for ED Patient: Disposition: Home or Assisted Living Diagnosis: Ureterolithiasis, Nausea Instructions: ED Nausea Vomiting Adult, ED Renal Stone w Colic Referrals: Leslie Santiago DO [Primary Care Provider] - 1 Week if not improving Rachele Macias MD [STAFF PHYSICIAN] - 1 Week if not improving (with regards to nausea, pain on left side that you may or may not develop, and if you have not yet passed a stone in urine)
--- NOTE | 2020-08-09 10:47 | CT_ITS ---
STUDY: CT BRAIN WITHOUT CONTRAST REASON FOR EXAM: Female, 69 years old. Had hip replacement on the now having headache and nausea with vomiting. RADIATION DOSAGE (If Supplied By Facility): CTDIvol = ( 44.99 ) mGy, DLP = ( 812.98 ) mGycm TECHNIQUE: Transaxial CT imaging of the brain was performed without administration of intravenous contrast material. Individualized dose optimization techniques were used for this CT. COMPARISON: No relevant priors. FINDINGS: There is a 9.5 mm ossification in the soft tissues overlying the posterior aspect of the right occipital bone. Normal calvarium. There is mild cerebral atrophy with widening of the extra-axial spaces and ventricular dilatation. Normal white matter tracts of the cerebral hemispheres. Normal basal ganglia and thalami. Normal brainstem. Normal cerebellum. There is no intracranial hemorrhage. There are no findings of an acute ischemic infarction. Normal visualized paranasal sinuses. CT/Brain/Head without Contrast IMPRESSION: Chronic involutional changes of the brain. Electronically Signed: Papo Cunningham, at 12:21 EST , Service support ,
--- NOTE | 2020-08-09 10:50 | EKG12_ITS ---
Test Reason : NAUSEA Blood Pressure : / mmHG Vent. Rate : 071 BPM Atrial Rate : 071 BPM P-R Int : 132 ms QRS Dur : 080 ms QT Int : 408 ms P-R-T Axes : 052 -13 049 degrees QTc Int : 443 ms Normal sinus rhythm Moderate voltage criteria for LVH, may be normal variant Borderline ECG Confirmed by REY LY, BASSEM ([id number]), editor in chief JENNIFER FREDERICK ([id number]) on 08/10/2020 12:59:19 PM Referred By: KATIE Confirmed By:ADRIAN LE MD
[2020-08-09] MEDS: 0.9% Normal Saline 1,000 ML 1000 ML IV (11:06)
[2020-08-09] MEDS: Ondansetron 4 MG/2 ML Vial IV (11:07)
--- NOTE | 2020-08-09 11:20 | CT_ITS ---
STUDY: CT ABDOMEN AND PELVIS WITHOUT CONTRAST REASON FOR EXAM: Female, 69 years old. Had hip replacement on the now having headache and nausea with vomiting. RADIATION DOSAGE (If Supplied By Facility): CTDIvol = ( 19.08 ) mGy, DLP = ( 891.55 ) mGycm TECHNIQUE: Transaxial images were obtained from the dome of the diaphragm to the symphysis pubis without oral contrast, and without intravenous contrast. Sagittal and coronal images were reconstructed. Individualized dose optimization techniques were used for this CT. COMPARISON: None. FINDINGS: Minimal increased linear markings at the lung bases suggestive of bibasilar mild linear atelectasis and/or scarring. The visualized portions of the heart are within normal limits. Normal liver. Normal gallbladder and extrahepatic biliary system. Normal spleen. Normal pancreas. Normal bilateral adrenal glands. Normal right kidney. There is a 3 mm calculus in the proximal portion of the left ureter causing a mild degree of left hydronephrosis and proximal left hydroureter. Normal visualized stomach. Normal small intestine. There are multiple colonic diverticula consistent with diverticulosis. The appendix is visualized and appears normal. Normal abdominal aorta. Normal inferior vena cava. There is borderline retroperitoneal lymphadenopathy with enlarged nodes no greater than 10mm in the short axis diameter. Normal urinary bladder. There is a small umbilical hernia containing fat. There are diffuse degenerative changes of the visualized lumbar spine. Prior left total hip replacement. CT/Abdomen/Pelvis without Cont IMPRESSION: 3 mm calculus in the proximal left ureter causing a mild degree of left hydronephrosis and hydroureter. Electronically Signed: Papo Cunningham, at 12:23 EST , Service support ,
[2020-08-09 11:22] LABS: Absolute Lymphocyte Count 0.81 X10^3/uL (0.83-4.51); Absolute Neutrophil Count 6.5 X10^3/uL (2.0-7.7); Basophil# 0.02 X10^3/uL; Basophil% 0.2 % (0-1); Eosinophil# 0.12 X10^3/uL; Eosinophils% 1.5 % (0-5); Hematocrit 37.2 % (37-47); Lymphocyte # 0.81 X10^3/ul (4.0); Lymphocyte % 9.8 % (19-41); Mean Corp Hgb Conc 32.3 g/dL (32-36); Mean Corpuscular Hgb 30.4 pg (27.0-32.0); Mean Corpuscular Volume 94.2 fL (81-99); Mean Platelet Vol. 9.2 fl (6.2-12.0); Monocyte# 0.69 X10^3/uL; Monocyte% 8.4 % (0-10); NRBC Flagged by Analyzer 0 % (0-5); Neutrophil # 6.46 X10^3/uL (2.7-7.7); Neutrophil % 78.4 % (47-70); Platelet Count 284 K/mm3 (150-450); RBC Distribution Width CV 12.2 % (11.6-14.6); RBC Distribution Width SD 42.4 fl (35.1-43.9); Red Blood Count 3.95 M/mm3 (4.2-5.4); White Blood Count 8.2 K/mm3 (4.4-11.0)
[2020-08-09 11:41] LABS: ALB/GLOB Ratio 0.7 RATIO (0.9-2.4); AST(SGOT) 21 U/L (15-37); Alanine Aminotransfer ALT/SGPT 28 U/L (13-56); Albumin, Serum 3.1 g/dL (3.2-5.0); Alkaline Phosphatase 85 U/L (45-117); Anion Gap 3 (5-15); BUN 16 mg/dL (7-18); Calcium,Total 8.8 mg/dL (8.5-10.1); Chloride 105 mmol/L (98-107); Creatinine, Serum 0.89 mg/dL (0.55-1.02); EST Glomerular Filtration Rate 67 mL/min (>60); Est Glom Filt Rate - Afr Amer 81 mL/min (>60); Estimated Creatinine Clearance 55.06 ml/min; Globulin 4.4 g/dL (2.2-4.2); Glucose 103 mg/dL (74-106); Lipase 92 U/L (73-393); Potassium 4.2 mmol/L (3.5-5.1); Protein, Total 7.5 g/dL (6.4-8.2); Sodium Level 138 mmol/L (136-145)
[2020-08-09 13:02] VITALS: BP 118/70; RESP 18
[2020-08-09 13:12] LABS: Bacteria 0 SEEN /hpf (None Seen); Mucous, Urine 0 SEEN /hpf (<or=2+); Red Blood Cells-Urine 0 SEEN /hpf (0-5); White Blood Cells 0 SEEN /hpf (0-5)
[2020-08-09 13:39] LABS: Color, Urine Yellow (Yellow); Glucose, Dipstick Normal (Normal); Ketone-Dipstick Negative (Negative); Leukocyte Esterase-Dipstick Negative /ul (Negative); Nitrite-Dipstick Negative (Negative); Occult Blood-Urine 10 /ul (Negative); Protein-Dipstick Negative (Negative); Urine Bilirubin Dipstick Negative (Negative); Urine Clarity Clear (Clear); Urine Urobilinogen Normal (Normal); Urine pH 6.5 (5.0 - 8.0)
[2020-08-09 13:47] LABS: Squamous Epithelial Cells - UA 0-5 SEEN /hpf (5-10)
[2020-08-09 14:26] VITALS: BP 139/84; PULSE 62; RESP 15; O2SAT 97
== END 2020-08-09 14:26 | disposition home or self-care (01) ==
PROVIDERS: Emergency Provider Emergency Medicine; PCP Family Medicine
DX: N13.2 Hydronephrosis with renal and ureteral calculous obstruction (principal); R31.29 Other microscopic hematuria; M16.11 Unilateral primary osteoarthritis, right hip; Z79.01 Long term (current) use of anticoagulants; Z79.899 Other long term (current) drug therapy; Z96.641 Presence of right artificial hip joint
CPT/HCPCS: 70450; 74176; 80053; 81001; 83690; 84484; 85025; 93005; 96361; 96374; 99283; J7030; J2405

== ENCOUNTER → 2020-08-22 13:34 | Outpatient (CLI) | payer MEDICARE, SELFPAY ==
[2020-08-16 11:53] VITALS: BMI 32.8
--- NOTE | 2020-08-22 13:36 | CT_ITS ---
STUDY: CT ABDOMEN AND PELVIS WITHOUT CONTRAST REASON FOR EXAM: Female, 69 years old. LT KIDNEY STONE/FLANK PAIN RADIATION DOSAGE (If Supplied By Facility): CTDIvol = ( 25.51 ) mGy, DLP = ( 1143.93 ) mGycm TECHNIQUE: Transaxial images were obtained from the dome of the diaphragm to the symphysis pubis without oral contrast, and without intravenous contrast. Sagittal and coronal images were reconstructed. Individualized dose optimization techniques were used for this CT. COMPARISON: Comparison is made with prior study dated 08/09/2020. FINDINGS: Stable minimal increased linear markings at the lung bases suggestive of linear scarring. The visualized portions of the heart are within normal limits. Normal liver. Normal gallbladder and extrahepatic biliary system. Normal spleen. Normal pancreas. Normal bilateral adrenal glands. Normal right kidney. Normal left kidney. Stable 3 mm calculus in the proximal portion of the left ureter. Prominent of the left gonadal vein emptying into the left renal vein. Normal visualized stomach. Normal small intestine. There are multiple colonic diverticula consistent with diverticulosis. The appendix is visualized and appears normal. Normal abdominal aorta. Normal inferior vena cava. Normal retroperitoneum. Normal urinary bladder. There is a small umbilical hernia containing fat. There are diffuse degenerative changes of the visualized lumbar spine. Status post right hip replacement. CT/Abdomen/Pelvis without Cont IMPRESSION: Stable examination with a 3 mm calyx in the proximal portion of the left ureter. Electronically Signed: Papo Cunningham, at 14:46 EST , Service support ,
== END ==
PROVIDERS: PCP Family Medicine; Referring Provider Urology; Visit Provider Urology
DX: N20.1 Calculus of ureter (principal)
CPT/HCPCS: 74176

== ENCOUNTER → 2020-10-16 13:40 | Outpatient (CLI) | payer MEDICARE, SELFPAY ==
--- NOTE | 2020-10-16 13:47 | CT_ITS ---
STUDY: CT ABDOMEN AND PELVIS WITHOUT CONTRAST REASON FOR EXAM: Female, 70 years old. LEFT KIDNEY STONE RADIATION DOSAGE (If Supplied By Facility): CTDIvol = ( 14.93 ) mGy, DLP = ( 720.05 ) mGycm TECHNIQUE: Transaxial images were obtained from the dome of the diaphragm to the symphysis pubis without oral contrast, and without intravenous contrast. Sagittal and coronal images were reconstructed. Individualized dose optimization techniques were used for this CT. COMPARISON: Comparison is made with prior study dated 08/22/2020. FINDINGS: Stable minimal increased linear markings at the lung bases suggestive of linear scarring. The visualized portions of the heart are within normal limits. Normal liver. Normal gallbladder and extrahepatic biliary system. Normal spleen. Normal pancreas. Normal bilateral adrenal glands. Normal right kidney. Normal left kidney. Prominence of the left gonadal vein emptying into the left renal vein. No ureteral calculus is seen. Normal visualized stomach. Normal small intestine. There are multiple colonic diverticula consistent with diverticulosis. The appendix is visualized and appears normal. Normal abdominal aorta. Normal inferior vena cava. Normal retroperitoneum. Normal urinary bladder. There is a small umbilical hernia containing fat. There are diffuse degenerative changes of the visualized lumbar spine. CT/Abdomen/Pelvis without Cont IMPRESSION: No obstructive uropathy is seen at this time. Electronically Signed: Papo Cunningham, at 15:17 EST , Service support ,
== END ==
PROVIDERS: PCP Family Medicine; Referring Provider Urology; Visit Provider Urology
DX: N20.1 Calculus of ureter (principal)
CPT/HCPCS: 74176

== ENCOUNTER → 2021-01-08 15:24 | Outpatient (CLI) | payer MEDICARE, SELFPAY ==
[2021-01-08 17:51] LABS: Absolute Lymphocyte Count 1.86 X10^3/uL (0.83-4.51); Absolute Neutrophil Count 5.3 X10^3/uL (2.0-7.7); Basophil# 0.03 X10^3/uL; Basophil% 0.4 % (0-1); Eosinophils% 1.2 % (0-5); Hematocrit 44.1 % (37-47); Hemoglobin 14.7 g/dL (12.0-15.0); Lymphocyte # 1.86 X10^3/ul (4.0); Lymphocyte % 23.2 % (19-41); Mean Corp Hgb Conc 33.3 g/dL (32-36); Mean Corpuscular Hgb 29.8 pg (27.0-32.0); Mean Corpuscular Volume 89.5 fL (81-99); Monocyte# 0.68 X10^3/uL; Monocyte% 8.5 % (0-10); NRBC Flagged by Analyzer 0 % (0-5); Neutrophil # 5.31 X10^3/uL (2.7-7.7); Neutrophil % 66.2 % (47-70); Platelet Count 258 K/mm3 (150-450); RBC Distribution Width CV 12.5 % (11.6-14.6); RBC Distribution Width SD 40.9 fl (35.1-43.9); Red Blood Count 4.93 M/mm3 (4.2-5.4)
[2021-01-08 17:59] LABS: Vitamin B12 737 pg/mL (211-911); Vitamin D,25 Hydroxy 22.7 ng/mL
[2021-01-08 18:07] LABS: Erythrocyte Sedimentation Rate 32 mm/hr (0-30)
[2021-01-11 16:16] LABS: ANTINUCLEAR ANTIBODIES DIRECT Negative (Negative)
== END ==
PROVIDERS: PCP Family Medicine; Referring Provider Family Medicine; Visit Provider Family Medicine
DX: R53.1 Weakness (principal); R51.9 Headache, unspecified; G62.9 Polyneuropathy, unspecified; E55.9 Vitamin D deficiency, unspecified; R59.1 Generalized enlarged lymph nodes
CPT/HCPCS: 36415; 82306; 82607; 85025; 85652; 86038; 86140; 86225; 86235

== ENCOUNTER 2021-11-20 12:30 | Outpatient (CLI) | payer MEDICARE, SELFPAY | END 2021-11-20 23:59 | disposition home or self-care (01) | LOC: LABSPEC 12:30 | PROVIDERS: PCP Family Medicine; Visit Provider Family Medicine | DX: Z20.828 Contact with and (suspected) exposure to other viral communicable diseases (principal) | CPT/HCPCS: 87635; U0003; U0005 ==

== ENCOUNTER → 2022-02-18 | Outpatient (CLI) | payer MEDICARE, SELFPAY ==
--- NOTE | 2022-02-18 13:34 | BI_ITS ---
MAMMOGRAPHY - BILATERAL SCREENING REASON FOR EXAM: Female, 71 years old. Routine annual screening examination. PERTINENT HISTORY: Non-contributory. TECHNIQUE: Digital bilateral breast beverly (3D mammographic acquisition) in the CC and MLO projections. 2-D mediolateral oblique (MLO) and craniocaudad (CC) views of both breasts were obtained. CAD: Full Field Digital Mammography with Computer Added Detection was performed. COMPARISON: Comparison is made with prior examination dated 10/19/2008. FINDINGS: Breast Composition: The breasts are almost entirely fatty. There are no dominant masses or suspicious calcifications. No other significant abnormalities are identified. There has been no significant change since the prior study. BI/SCRN MAMM (CAD)W/BEVERLY BILAT IMPRESSION: Stable bilateral screening mammogram. Yearly follow-up mammogram recommended. (A) ASSESSMENT CATEGORY: BIRADS Category 1: Negative. A letter regarding these results will be sent to the patient by the facility within 30 days. Approximately 10% of breast cancers are not detected by mammography. A normal mammogram should not delay biopsy of a clinically suspicious abnormality. [id number] Electronically Signed: Papo Cunningham MD at 14:32 EDT ,
== END | disposition home or self-care (01) ==
LOC: OPBI 13:32
PROVIDERS: PCP Family Medicine; Visit Provider Family Medicine
DX: Z12.31 Encounter for screening mammogram for malignant neoplasm of breast (principal)
CPT/HCPCS: 77063; 77067

== ENCOUNTER → 2022-08-08 | Outpatient (CLI) | payer MEDICARE, SELFPAY ==
[2022-08-13 16:27] LABS: H. PYLORI STOOL AG Negative (Negative)
== END | disposition home or self-care (01) ==
LOC: LABSPEC 14:42
PROVIDERS: PCP Family Medicine; Referring Provider Family Medicine; Visit Provider Family Medicine
DX: R19.7 Diarrhea, unspecified (principal); R10.13 Epigastric pain
CPT/HCPCS: 83630; 87338

== ENCOUNTER → 2022-08-12 | Outpatient (CLI) | payer MEDICARE, SELFPAY ==
[2022-08-12 11:10] LABS: Absolute Lymphocyte Count 0.99 X10^3/uL (0.83-4.51); Absolute Neutrophil Count 3.2 X10^3/uL (2.0-7.7); Basophil# 0.02 X10^3/uL; Basophil% 0.4 % (0-1); Eosinophil# 0.04 X10^3/uL; Eosinophils% 0.8 % (0-5); Hematocrit 43.6 % (37-47); Hemoglobin 14.6 g/dL (12.0-15.0); Lymphocyte # 0.99 X10^3/ul (0.83-4.51); Mean Corp Hgb Conc 33.5 g/dL (32-36); Mean Corpuscular Volume 92.6 fL (81-99); Mean Platelet Vol. 10.1 fl (6.2-12.0); Monocyte# 0.68 X10^3/uL; Monocyte% 13.7 % (0-10); NRBC Flagged by Analyzer 0 % (0-5); Neutrophil % 64.5 % (47-70); Platelet Count 259 K/mm3 (150-450); RBC Distribution Width CV 12.4 % (11.6-14.6); RBC Distribution Width SD 42.6 fl (35.1-43.9); Red Blood Count 4.71 M/mm3 (4.2-5.4)
[2022-08-12 11:41] LABS: ALB/GLOB Ratio 0.9 RATIO (0.9-2.4); AST(SGOT) 27 U/L (15-37); Alanine Aminotransfer ALT/SGPT 42 U/L (13-56); Albumin, Serum 3.7 g/dL (3.2-5.0); Alkaline Phosphatase 77 U/L (45-117); Anion Gap 6 (5-15); BUN 12 mg/dL (7-18); Chloride 106 mmol/L (98-107); Cholesterol 162 mg/dL (200); Creatinine, Serum 0.75 mg/dL (0.55-1.02); EST Glomerular Filtration Rate 80 mL/min (>60); Est Glom Filt Rate - Afr Amer 97 mL/min (>60); Globulin 4.2 g/dL (2.2-4.2); Glucose 87 mg/dL (74-106); High Density Lipoprotein 72 mg/dL; Iron 69 ug/dL (50-170); Potassium 4.3 mmol/L (3.5-5.1); Protein, Total 7.9 g/dL (6.4-8.2); Sodium Level 141 mmol/L (136-145); Triglycerides 56 mg/dL; Very Low Density Lipoprotein 11 mg/dL (5-40); Vitamin B12 941 pg/mL (211-911); Vitamin D,25 Hydroxy 28.1 ng/mL
== END | disposition home or self-care (01) ==
LOC: LAB 09:49
PROVIDERS: PCP Family Medicine; Referring Provider Family Medicine; Visit Provider Family Medicine
DX: E53.8 Deficiency of other specified B group vitamins (principal); E55.9 Vitamin D deficiency, unspecified; D64.9 Anemia, unspecified; E61.1 Iron deficiency; Z51.81 Encounter for therapeutic drug level monitoring; Z79.899 Other long term (current) drug therapy
CPT/HCPCS: 36415; 80053; 80061; 82306; 82607; 83540; 85025

== ENCOUNTER 2023-01-27 14:29 | Emergency (ER) | payer MEDICARE, SELFPAY ==
[2023-01-27 14:31] VITALS: BP 139/91; PULSE 73; RESP 16; TEMP 36.1; O2SAT 99
[2023-01-27 14:35] VITALS: BMI 28.5
--- NOTE | 2023-01-27 16:18 | CT_ITS ---
STUDY: CT ABDOMEN AND PELVIS WITH CONTRAST REASON FOR EXAM: Female, 72 years old. abd pain RADIATION DOSAGE (If Supplied By Facility): CTDIvol = ( 14.38 ) mGy, DLP = ( 741.13 ) mGycm TECHNIQUE: Transaxial images were obtained from the dome of the diaphragm to the symphysis pubis without oral contrast. IV 100mL [id number]-300 was administered. Sagittal and coronal images were reconstructed. Individualized dose optimization techniques were used for this CT. COMPARISON: None. FINDINGS: The visualized lung bases are unremarkable. The visualized portions of the heart are within normal limits. Granulomatous calcifications in the liver. Possible cholelithiasis. No significant dilatation of the extrahepatic biliary system. Normal spleen. Normal pancreas. Normal bilateral adrenal glands. Subcentimeter cysts in the right kidney. Normal left kidney. Normal visualized stomach. Normal small intestine. Diverticulosis of the colon. The appendix is not visualized. Normal abdominal aorta. Normal inferior vena cava. Normal retroperitoneum. Normal urinary bladder. Normal abdominal wall. There is a right hip prosthesis. Degenerative vertebral changes. Minimal spondylolisthesis at L3-4. CT/Abdomen/Pelvis W IV Cont ONLY IMPRESSION: Right renal cysts. Possible cholelithiasis. Correlate with ultrasound if needed. Colonic diverticulosis. Electronically Signed: Lavell Amaya DO at 18:37 EDT ,
--- NOTE | 2023-01-27 16:19 | EDS_ITS ---
HPI History of Present Illness Chief Complaint: Flank Pain Informant: patient Narrative Narrative: Patient comes in with abdominal pain nausea and vomiting. She states the symptoms maybe started with some pain in the right flank. That has been constant. She then had the pain kind of spread down to the lower abdomen but it does go on both sides. It was waxing and waning. Today at work it got much worse. She contacted her physician. They did outpatient blood work which I reviewed. Her white count was normal. She was a little bit dry with elevated BUN and creatinine. But she also has not been eating and drinking quite as well as normal. The only episode of nausea and vomiting was today though. No blood was seen in that. No blood in the stool. Patient does have some mild diarrhea but she has been having this since July. 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 She is due to see Dr. Jacobs but has not yet seen them. She does not carry a diagnosis of Crohn's or ulcerative colitis. She has not yet had a colonoscopy related to this event. This has been going on and off since July and this is no different than normal. But the pain she is having now is different. In addition to the meds listed in the chart, she is also on Medrol Dosepak at this time. She is on about day for 3 or 4. In addition to the surgeries listed she has also had prior appendectomy. Patient did receive what sounds like Zofran by EMS before coming in. She has good control of nausea now and does not need anything. She did not want anything for pain at this time either. PFSH PFS Home Medications buspirone 10 mg tablet 10 mg PO DAILY 07/05/20 [History Last Taken Unknown] citalopram 40 mg tablet 40 mg PO DAILY 07/05/20 [History Last Taken Unknown] auwwaafgoiio-Qk-fwfo-minerals 1 ea PO DAILY 07/17/20 [History Last Taken Unknow n] acetaminophen 500 mg tablet 1,000 mg PO Q8 #100 tabs 08/02/20 [Rx Last Taken Unknown] esomeprazole magnesium 20 mg capsule,delayed release (Nexium) 20 mg PO DAILY #30 caps 01/27/23 [Rx Last Taken Unknown] ondansetron 4 mg disintegrating tablet 4 mg PO Q8H PRN PRN Nausea #10 tabs 01/27/23 [Rx Last Taken Unknown] Allergy/AdvReac Type Severity Reaction Status Date / Time sulfamethoxazole Allergy Mild burning Verified 09/13/20 11:10 [From Bactrim] skin trimethoprim [From Bactrim] Allergy Mild burning Verified 09/13/20 11:10 skin thiopental [From Pentothal] Allergy Anaphylaxis Verified 09/13/20 11:10 Surgical History H/O foot surgery Social History Smoking Status: Never smoker ROS ROS ED ROS Narrative A complete review of systems was performed and is negative except as documented in the history of present illness. Some specific details below. Constitutional: No recent fevers or chills. EYE: No visual complaints or pain. ENT: No difficulty swallowing. No swelling. No pain. No reflux symptoms CV: No chest pain or palpitations. Respiratory: No dyspnea. No hemoptysis. No difficulty taking breaths. GI: Please see history of present illness. : No frequency dysuria or hematuria. Musculoskeletal: No recent trauma. No pains. Skin: No rash. Nondiaphoretic. Neuro: No weakness or numbness. Endocrine: No polyuria or polydipsia. EXAM Physical Exam Narrative Exam Narrative: CONSTITUTIONAL: Patient is nontoxic in appearance. The patient looks comfortable. HEENT: No notable trauma. Mucous membranes minimally dry. No sinus tenderness. EYES: No conjunctival injection. CARDIOVASCULAR: Regular rate. Regular rhythm. No notable murmur. No JVD. RESPIRATORY: No respiratory distress. Breathing is unlabored. No wheezes. No rhonchi. No rales. No pain with a deep breath. GASTROINTESTINAL: Not distended. Bowel sounds are normal. Despite her symptoms, there is really no notable tenderness. No guarding. No rebound. No palpable mass. No bruit. GENITOURINARY: No tenderness over the bladder. However, she does have some mild right CVA tenderness. MUSCULOSKELETAL: Atraumatic. No peripheral edema. No cord. No tenderness along the deep venous system. No asymmetry. NEUROLOGICAL: Patient is alert and appropriate. No focal deficit noted. SKIN: No noted rashes. No diaphoresis. I see no vesicles or rash anywhere in the area of symptoms. PSYCHIATRIC: Patient is calm. Mood is appropriate. Const Vital Signs: 01/27/23 14:31 01/27/23 16:30 01/27/23 18:00 Temperature 97 F L Temperature Source Temporal Pulse Rate 73 76 81 Respiratory Rate 16 16 18 Blood Pressure 139/91 H 151/92 H 148/86 H Blood Pressure Mean 107 111 106 Pulse Ox 99 98 99 Oxygen Delivery Method Room Air Room Air Room Air MDM MDM MDM Narrative Medical decision making narrative: My independent interpretation of the patient's CT of the abdomen shows no obvious kidney stone. No inflammatory changes of the colon. Final reading showed possible cholelithiasis but no other significant acute process to explain her symptoms. I had reviewed blood work that was already done today. I had added a lipase as that had not been done. Lipase is normal at 41. Patient's urinalysis was slightly cloudy but otherwise normal. Patient's micro urine study showed 0 white cells. I talked to the patient again. She states she gets some cramping down the lower abdomen but she is thinking most of it is epigastric. Reexamined the patient. There is no right upper quadrant tenderness. Negative Carpio sign. Patient may be getting some GI discomfort from the recurrent doses of steroids. We will get her started on a PPI. Because she has had occasional nausea we will write for Zofran as needed. We discussed returning with worsening pain, fevers, blood in the stool or any other concerns. She will be following up with her private physician and is getting into see gastroenterology. Lab Data Labs: Laboratory Results - last 24 hr 01/27/23 01/27/23 17:42 17:42 Lipase 41 Urine Color Yellow Urine Clarity Sl. Cloudy Urine pH 7.0 Ur Specific [place] 1.010 Urine Protein Negative Urine Glucose (UA) Normal Urine Ketones Negative Urine Occult Blood Negative Urine Nitrite Negative Urine Bilirubin Negative Urine Urobilinogen Normal Ur Leukocyte Esterase Negative Urine RBC 0 SEEN Urine WBC 0 SEEN Ur Squamous Epith Cells 0-5 SEEN Amorphous Sediment 1+ PHOS Urine Bacteria 0 SEEN Urine Mucus 0 SEEN Radiography Diagnostic Testing: Clinical Impression(s) from Imaging Studies Abdomen/Pelvis CT 01/27/23 16:18 IMPRESSION: Right renal cysts. Possible cholelithiasis. Correlate with ultrasound if needed. Colonic diverticulosis. Electronically Signed: Lavell Amaya DO at 18:37 EDT Reading Location ID and State: [facility] / [place] Tel [phone], Service support , Discharge Plan Triage Chief Complaint: Flank Pain ED Provider: Yohan Craig Dx/Rx/DC Orders Clinical Impression: Abdominal pain, Gastritis Instructions: ED Abdominal Pain Unkn Cause Fem Prescriptions: New esomeprazole magnesium [Nexium] 20 mg capsule,delayed release(DR/EC) 20 mg PO DAILY Qty: 30 0RF ondansetron [ondansetron] 4 mg tablet,disintegrating 4 mg PO Q8H PRN PRN (Reason: Nausea) Qty: 10 0RF No Action citalopram 40 mg tablet 40 mg PO DAILY buspirone 10 mg tablet 10 mg PO DAILY Label Comments: TAKE 1 TABLET BY MOUTH ONCE DAILY klaugfhschyk-Wh-niyt-minerals 1 EACH tablet 1 ea PO DAILY acetaminophen 500 MG tablet 1,000 mg PO Q8 Qty: 100 0RF Primary Care Provider: Leslie Santiago Referrals: Leslie Santiago DO [Primary Care Provider] - 3-5 Days if not improving Disposition Disposition: Home, Self Care
[2023-01-27] MEDS: 0.9% Normal Saline 1,000 ML 1000 ML IV (16:29)
[2023-01-27 16:30] VITALS: BP 151/92; PULSE 76; RESP 16; O2SAT 98
[2023-01-27 17:51] LABS: Bacteria 0 SEEN /hpf (None Seen); Mucous, Urine 0 SEEN /hpf (<or=2+); Red Blood Cells-Urine 0 SEEN /hpf (0-5); White Blood Cells 0 SEEN /hpf (0-5)
[2023-01-27 17:52] LABS: Glucose, Dipstick Normal (Normal); Ketone-Dipstick Negative (Negative); Leukocyte Esterase-Dipstick Negative /ul (Negative); Nitrite-Dipstick Negative (Negative); Occult Blood-Urine Negative /ul (Negative); Protein-Dipstick Negative (Negative); Urine Bilirubin Dipstick Negative (Negative); Urine Urobilinogen Normal (Normal)
[2023-01-27 18:00] VITALS: BP 148/86; PULSE 81; RESP 18; O2SAT 99
[2023-01-27 18:26] LABS: Lipase 41 U/L (13-75)
[2023-01-27 19:02] LABS: Color, Urine Yellow (Yellow); Urine Clarity Sl. Cloudy (Clear)
[2023-01-27 19:13] LABS: Amorphous Sediment 1+ PHOS; Squamous Epithelial Cells - UA 0-5 SEEN /hpf (5-10)
== END 2023-01-27 19:54 | disposition home or self-care (01) ==
PROVIDERS: Emergency Provider Emergency Medicine; PCP Family Medicine; Visit Provider Emergency Medicine
DX: K29.70 Gastritis, unspecified, without bleeding (principal); M54.50 Low back pain, unspecified
CPT/HCPCS: 36415; 74018; 74177; 80053; 81001; 81002; 83690; 85025; 85652; 86140; 87086; 87088; 96360; 99285; J7030; Q9967; A4216

== ENCOUNTER → 2023-01-27 | Outpatient (CLI) | payer MEDICARE, SELFPAY ==
--- NOTE | 2023-01-27 13:45 | RAD_ITS ---
STUDY: X-RAY - ABDOMEN/PELVIS REASON FOR EXAM: Female, 72 years old. FLANK PAIN - R/O KIDNEY STONE TECHNIQUE: Frontal views COMPARISON: None. FINDINGS: Normal visualized lung bases. There is an unremarkable bowel gas pattern. There is no demonstrated free abdominal air. There are calcific foci over the left renal shadow. Normal soft tissue structures. Degenerative vertebral changes. Right total hip prosthesis is noted. RAD/Abdomen Single View IMPRESSION: Left renal calculi. Electronically Signed: Lavell Amaya DO at 17:20 EDT ,
[2023-01-27 15:15] LABS: Absolute Lymphocyte Count 2.27 X10^3/uL (0.83-4.51); Absolute Neutrophil Count 6.4 X10^3/uL (2.0-7.7); Basophil# 0.05 X10^3/uL; Basophil% 0.5 % (0-1); Eosinophil# 0.09 X10^3/uL; Eosinophils% 0.9 % (0-5); Hematocrit 46.3 % (37-47); Hemoglobin 15.3 g/dL (12.0-15.0); Lymphocyte # 2.27 X10^3/ul (0.83-4.51); Lymphocyte % 23.5 % (19-41); Mean Corpuscular Hgb 30.8 pg (27.0-32.0); Mean Corpuscular Volume 93.3 fL (81-99); Mean Platelet Vol. 9.6 fl (6.2-12.0); Monocyte# 0.74 X10^3/uL; Monocyte% 7.7 % (0-10); NRBC Flagged by Analyzer 0 % (0-5); Neutrophil # 6.38 X10^3/uL (2.7-7.7); Platelet Count 262 K/mm3 (150-450); RBC Distribution Width CV 12.7 % (11.6-14.6); RBC Distribution Width SD 43.5 fl (35.1-43.9); Red Blood Count 4.96 M/mm3 (4.2-5.4); White Blood Count 9.7 K/mm3 (4.4-11.0)
[2023-01-27 15:18] LABS: Color, Urine Yellow (Yellow); Glucose, Dipstick Normal (Normal); Ketone-Dipstick Negative (Negative); Leukocyte Esterase-Dipstick 25 /ul (Negative); Nitrite-Dipstick Negative (Negative); Occult Blood-Urine 25 /ul (Negative); Protein-Dipstick 15 mg/dl (Negative); Urine Bilirubin Dipstick Negative (Negative); Urine Clarity Sl. Cloudy (Clear); Urine Urobilinogen Normal (Normal)
[2023-01-27 15:41] LABS: ALB/GLOB Ratio 0.9 RATIO (0.9-2.4); AST(SGOT) 24 U/L (15-37); Alanine Aminotransfer ALT/SGPT 29 U/L (13-56); Albumin, Serum 3.9 g/dL (3.2-5.0); Alkaline Phosphatase 80 U/L (45-117); Anion Gap 2 (5-15); BUN 25 mg/dL (7-18); BUN/Creat Ratio 24.8 RATIO (10-20); CRP < 2.90 mg/L (0.0-3.0); Calcium,Total 9.6 mg/dL (8.5-10.1); Chloride 105 mmol/L (98-107); Creatinine, Serum 1.01 mg/dL (0.55-1.02); EST Glomerular Filtration Rate 57 mL/min (>60); Est Glom Filt Rate - Afr Amer 69 mL/min (>60); Globulin 4.4 g/dL (2.2-4.2); Glucose 103 mg/dL (74-106); Potassium 3.7 mmol/L (3.5-5.1); Protein, Total 8.3 g/dL (6.4-8.2); Sodium Level 137 mmol/L (136-145)
[2023-01-27 15:45] LABS: Erythrocyte Sedimentation Rate 18 mm/hr (0-30)
== END | disposition home or self-care (01) ==
PROVIDERS: PCP Family Medicine; Referring Provider Family Medicine; Visit Provider Family Medicine
DX: R10.9 Unspecified abdominal pain (principal); R11.10 Vomiting, unspecified; M54.50 Low back pain, unspecified
CPT/HCPCS: 36415; 74018; 80053; 81002; 85025; 85652; 86140

== ENCOUNTER → 2023-01-31 | Outpatient (CLI) | payer MEDICARE, SELFPAY ==
[2023-01-31 14:22] LABS: Erythrocyte Sedimentation Rate 12 mm/hr (0-30)
[2023-01-31 14:23] LABS: Absolute Lymphocyte Count 1.95 X10^3/uL (0.83-4.51); Absolute Neutrophil Count 4.9 X10^3/uL (2.0-7.7); Basophil# 0.05 X10^3/uL; Basophil% 0.6 % (0-1); Eosinophil# 0.11 X10^3/uL; Eosinophils% 1.4 % (0-5); Hematocrit 47.2 % (37-47); Hemoglobin 15.6 g/dL (12.0-15.0); Lymphocyte # 1.95 X10^3/ul (0.83-4.51); Lymphocyte % 25.1 % (19-41); Mean Corp Hgb Conc 33.1 g/dL (32-36); Mean Corpuscular Hgb 30.9 pg (27.0-32.0); Mean Corpuscular Volume 93.5 fL (81-99); Mean Platelet Vol. 9.5 fl (6.2-12.0); Monocyte# 0.69 X10^3/uL; Monocyte% 8.9 % (0-10); NRBC Flagged by Analyzer 0 % (0-5); Neutrophil # 4.94 X10^3/uL (2.7-7.7); Neutrophil % 63.5 % (47-70); Platelet Count 238 K/mm3 (150-450); RBC Distribution Width CV 12.7 % (11.6-14.6); RBC Distribution Width SD 43.4 fl (35.1-43.9); Red Blood Count 5.05 M/mm3 (4.2-5.4); White Blood Count 7.8 K/mm3 (4.4-11.0)
[2023-01-31 14:58] LABS: ALB/GLOB Ratio 0.8 RATIO (0.9-2.4); AST(SGOT) 32 U/L (15-37); Alanine Aminotransfer ALT/SGPT 32 U/L (13-56); Albumin, Serum 3.8 g/dL (3.2-5.0); Alkaline Phosphatase 76 U/L (45-117); Anion Gap 3 (5-15); BUN 19 mg/dL (7-18); BUN/Creat Ratio 24.9 RATIO (10-20); CRP 5.94 mg/L (0.0-3.0); Chloride 105 mmol/L (98-107); Creatinine, Serum 0.76 mg/dL (0.55-1.02); EST Glomerular Filtration Rate 79 mL/min (>60); Est Glom Filt Rate - Afr Amer 95 mL/min (>60); Globulin 4.5 g/dL (2.2-4.2); Glucose 92 mg/dL (74-106); LDH 255 U/L (84-246); Potassium 4.2 mmol/L (3.5-5.1); Protein, Total 8.3 g/dL (6.4-8.2); Sodium Level 136 mmol/L (136-145)
[2023-02-03 15:08] LABS: Endomysial Antibody IgA Negative (Negative); Immunoglobulin A 241 mg/dL (64-422); t-Transglutaminase IgA <2 U/mL (0-3)
[2023-02-03 17:07] LABS: Anti-Centromere B Ab <0.2 AI (0.0-0.9); Anti-Chromatin <0.2 AI (0.0-0.9); Anti-Jo <0.2 AI (0.0-0.9); Anti-Scleroderma-70 AB <0.2 AI (0.0-0.9); Anti-dsDNA Ab 1 IU/mL (0-9); SJOGREN'S Anti-SS-A test < 0.2 AI (0.0-0.9); SJOGREN'S Anti-SS-B test < 0.2 AI (0.0-0.9); Smith Ab 0.3 AI (0.0-0.9)
[2023-02-06 08:12] LABS: Alpha-1-Globulins 0.3 g/dL (0.0-0.4); Alpha-2-Globulins 0.8 g/dL (0.4-1.0); Cytoplasmic Ab (C-ANCA) <1:20 titer (Neg:<1:20); Gamma Globulin 1.4 g/dL (0.4-1.8); Immunoglobulin A 250 mg/dL (64-422); Immunoglobulin E 29 IU/mL (6-495); Immunoglobulin G 1600 mg/dL (586-1602); Immunoglobulin M 91 mg/dL (26-217); PROEL- TOTAL PROTEIN 7.6 g/dL (6.0-8.5); Perinuclear Ab (P-ANCA) <1:20 titer (Neg:<1:20)
== END | disposition home or self-care (01) ==
LOC: LAB 13:51
PROVIDERS: PCP Family Medicine; Referring Provider Internal Medicine Gastroenterology; Visit Provider Internal Medicine Gastroenterology
DX: R10.9 Unspecified abdominal pain (principal)
CPT/HCPCS: 36415; 80053; 82784; 82785; 83516; 83615; 84165; 85025; 85652; 86140; 86225; 86235; 86255; 86256; 86334

== ENCOUNTER → 2023-02-03 | Outpatient (CLI) | payer MEDICARE, SELFPAY ==
[2023-02-07 14:09] LABS: Pancreatic Elastase, Fecal 141 (>200)
[2023-02-07 22:06] LABS: Calprotectin, Stool 65 ug/g (0-120)
== END | disposition home or self-care (01) ==
LOC: LABSPEC 08:30
PROVIDERS: PCP Family Medicine; Referring Provider Internal Medicine Gastroenterology; Visit Provider Internal Medicine Gastroenterology
DX: R10.9 Unspecified abdominal pain (principal)
CPT/HCPCS: 82653; 83630; 83993; 87177; 87209; 87329; 87493

== ENCOUNTER → 2023-02-21 | Outpatient (CLI) | payer MEDICARE, SELFPAY ==
--- NOTE | 2023-02-21 09:16 | US_ITS ---
STUDY: ABDOMINAL ULTRASOUND - RIGHT UPPER QUADRANT REASON FOR VISIT: Female, 72 years old right upper pain TECHNIQUE: Ultrasound evaluation of the right upper quadrant was performed with real-time and static collado-scale imaging. TECHNICAL QUALITY: Adequate. COMPARISON: Comparison is made with prior CT scan the abdomen and pelvis dated January 27, 2023. FINDINGS: Liver: The liver measures 16 cm. There is increased echogenicity consistent with fatty infiltration. The bile ducts are within normal limits. There is hepatic color flow. The direction of portal flow is hepatopetal. There is no demonstrated mass lesion. Gallbladder: Normal distended gallbladder. The gallbladder wall measures 1 mm. There is a negative sonographic Carpio''s sign. There is no pericholecystic fluid. There are no gallstones. Findings suggestive of 2 gallbladder polyps. The larger one measures 5 mm x 5 mm x 3 mm. Is also evidence of a 1.9 cm x 1.4 cm soft tissue density in the fundal portion of the gallbladder. This may represent either a sludge ball or possible mass. This was seen on prior CT scan. Correlation with MR is recommended. Common Bile Duct (C.B.D.): The common bile duct measures 8.5 mm. Pancreas: Normal size of the head, body and tail of the pancreas. There is normal echogenicity of the pancreas. There is no demonstrated pancreatic mass or cyst. Right Kidney: Normal size of the right kidney. The right kidney measures 11 cm x 5.8 cm x 5.7 cm. Normal renal cortex. The right cortex measures 1.4 cm. 2 small cysts are seen in the right kidney. There is no right hydronephrosis. US/Abdomen Limited IMPRESSION: Soft tissue density in the fundal portion of the gallbladder measuring 1.9 cm x 1.5 cm x 1.4 cm. Correlation with MRI is recommended. Findings suggestive of small gallbladder polyps. Fatty infiltration of the liver. Electronically Signed: Papo Cunningham MD at 12:30 EDT ,
--- NOTE | 2023-02-21 10:08 | NM_ITS ---
CLINICAL: 72-year-old female with history of right upper quadrant abdominal pain. RADIONUCLIDE HEPATOBILIARY SCINTIGRAPHY COMPARISON: Gallbladder ultrasound report 02/21/2023 FINDINGS: Following the intravenous administration of 5.2 mCi of 99m Tc Mebrofenin, hepatobiliary images reveal: 1. Relatively prompt and homogeneous radiopharmaceutical concentration is noted by a normal sized liver. No parenchymal defects are identified. 2. Gallbladder activity is identified at 30 minutes post radiopharmaceutical administration. 3. Small intestinal tract is observed by 60 minutes post tracer injection. 4. Washout of the radiopharmaceutical by the hepatic parenchyma appears qualitatively normal. Cholecystokinin (0.02 ug/kg) was administered intravenously over a 30-minute period. The post CCK gallbladder ejection fraction calculated at 20 minutes following Cholecystokinin administration was noted to be 16.0% (normal greater than 35%). NH/Hepatobilliary Img w/Pharm Int IMPRESSION: 1. ABNORMAL 99m Tc Mebrofenin hepatobiliary imaging examination with Cholecystokinin. A. A gallbladder ejection fraction calculated to be less than 35% following the administration of Cholecystokinin is consistent with the presence of functional hepatobiliary disease (gallbladder and/or sphincter of Oddi dyskinesia) and/or organic hepatobiliary disease (chronic acalculous cholecystitis and/or cystic duct syndrome) in patients with intermediate to high pretest probabilities of hepatobiliary illness. (Tim Mccray et al, Journal of Nuclear Medicine 32:1695, 1991). Electronically Signed: Georgi Arora, at 9:06 EDT ,
== END | disposition home or self-care (01) ==
PROVIDERS: PCP Family Medicine; Referring Provider Internal Medicine Gastroenterology; Visit Provider Internal Medicine Gastroenterology
DX: K81.9 Cholecystitis, unspecified (principal); R10.9 Unspecified abdominal pain
CPT/HCPCS: 76705; 78227; A9537; J2805

== ENCOUNTER → 2023-04-01 | Outpatient (CLI) | payer MEDICARE, SELFPAY ==
--- NOTE | 2023-04-01 06:37 | MRI_ITS ---
EXAM: MR ABDOMEN WITHOUT INTRAVENOUS CONTRAST, MRCP PROTOCOL CLINICAL INDICATION: gallbladder mass, abd pain, f/u to ct and u/s TECHNIQUE: Multiplanar and multisequence MR images of the abdomen without intravenous contrast obtained with MRCP sequence. Three-dimensional post-processing reconstructions were performed. COMPARISON: Ultrasound 02/21/2023, CT 01/27/2023. FINDINGS: LOWER THORAX: Heart size is normal. No pleural effusion. LIVER: Unremarkable. Normal morphology. GALLBLADDER AND BILE DUCTS: 1.5 x 0.8 cm sessile mass or polyp in the gallbladder fundus in a nondependent location. No gallbladder distention or wall edema. No intra- or extrahepatic biliary ductal dilation. No additional filling defects to indicate cholelithiasis or choledocholithiasis. PANCREAS: Unremarkable. No focal cystic mass. No pancreatic duct dilation. SPLEEN: Unremarkable. Non-enlarged. ADRENALS: Unremarkable. No nodules. KIDNEYS AND URETERS: Unremarkable. Normal renal size and position. No hydronephrosis. INTRAPERITONEAL SPACE: No free fluid. VASCULATURE: Aorta is normal in caliber. LYMPH NODES: No lymphadenopathy. MRI/MRCP Abdomen without Contrast IMPRESSION: Gallbladder mass or polyp. Due to lesion size and patient''s age, there is increased risk of malignancy and surgical referral is suggested for possible cholecystectomy. Electronically Signed: Geraldine Rodriguez MD at 23:10 EDT Reading Location ID and State: [id number] / Tel , Service support ,
== END | disposition home or self-care (01) ==
PROVIDERS: PCP Family Medicine; Referring Provider Surgery; Visit Provider Surgery
DX: K82.8 Other specified diseases of gallbladder (principal)
CPT/HCPCS: 74181

== ENCOUNTER 2023-04-17 06:43 | Day surgery (SDC) | payer MEDICARE, SELFPAY ==
[2023-04-17] VITALS (12 sets, daily range): BP systolic 121–140; BP diastolic 58–84; PULSE 67–82; RESP 16–18; TEMP 36.4–36.6; O2SAT 90–100; BMI 27.7
--- NOTE | 2023-04-17 | GALL_PTH ---
PATIENT: CARMEN RODRIGES LOC: [facility] U#:[id number] AGE/SX: 72/F ROOM: RE04/17/[address]: Dr. Niko Cristobal MD : [id number] BED: DIS: 04/17/2023 SPEC #: [id number] RECD: 04/17/23 13:16 STATUS: FLORI ISHAAN #: [id number] ERNA: 04/17/23 00:[address]: Niko Cristobal DEPT: SURGICAL PATHOLOGY RECD BY: Horacio Vizcaino ENTERED: 04/17/23 13:16 SP TYPE: ILA BENAVIDES DR: Dr. Leslie Santiago DO Tissues: Gallbladder, NOS Procedures: Surgery Specimen Level III HEADER OPERATION: Laparoscopic, cholecystectomy with IOC PRE-OP DIAGNOSIS: Chronic gallbladder poly, abnormal biliary HIDA scan TISSUE SUBMITTED: Gallbladder MICROSCOPIC DIAGNOSIS Gallbladder, cholecystectomy: Chronic cholecystitis and cholesterolosis. Fundic nodule, consistent with Rokitansky-Aschoff sinuses. SJ: 04/18/2023 COMMENT No stones are identified in the container or in the gallbladder. MICROSCOPIC DESCRIPTION Slides are reviewed. GROSS DESCRIPTION Received is one container labeled with the patient's name and designated gallbladder. The specimen consists of a gallbladder measuring 8.0 cm in length and up to 4.0cm in diameter. The external surface is pink-moser, smooth and glistening for the most part. Focally it is granular, hemorrhagic and contains cautery artifact. The gallbladder contains green, yellow mucoid bile. No stones are identified in the container or in the gallbladder. cm in greatest dimension. The mucosa is bile-stained and without any mass lesions. The gallbladder wall measures up to 0.1 cm in thickness. The mucosa also shows several yellowish streaks consistent with cholesterolosis. A nodule is noted at the fundus measuring 1.2 cm in diameter. Section of the nodule reveal cystic cut surfaces. Insurance Business Analyst sections are submitted in 3 cassettes,1- gallbladder wall and the cystic duct, 2 & 3 entire nodule at the fundus. / SJ:cc 04/17/23 TC:3 CPT: 03974
--- NOTE | 2023-04-17 06:57 | EKG12_ITS ---
Test Reason : PREOP Blood Pressure : / mmHG Vent. Rate : 070 BPM Atrial Rate : 070 BPM P-R Int : 134 ms QRS Dur : 080 ms QT Int : 424 ms P-R-T Axes : 052 -20 068 degrees QTc Int : 457 ms Sinus rhythm with occasional ventricular-paced complexes Left ventricular hypertrophy Abnormal ECG When compared with ECG of 09-AUG-2020 10:58, Electronic ventricular pacemaker has replaced Sinus rhythm Confirmed by LEONID LY, DANIELLA ([id number]), design editor ARMANDO TAVERAS ([id number]) on 04/21/2023 11:16:01 AM Referred By: Niko Cristobal Confirmed By:DANIELLA JAQUEZ MD
[2023-04-17] MEDS: Lactated Ringers 1,000 ML 15 ML IV ×2 (07:15→09:16)
--- NOTE | 2023-04-17 08:24 | HP.PCM_ITS ---
History and Physical Date of Admission: 04/17/23 Intake Vital Signs 03/26/2314:46 Height 5 ft 6 in Weight: 177 lb BMI 28.5 BP 150/87 H Blood Pressure Location Rt brachial Position Sitting Respiration 18 Pulse Source Monitor Temp 97.4 F L Temp Source Tympanic Pulse Oximetry (%) 96 Intake Visit Reasons: F/U MRI Results Chief Complaint: f/u MRI results Allergies sulfamethoxazole [From Bactrim] Allergy (Mild, Verified 04/11/23 09:00) burning skintrimethoprim [From Bactrim] Allergy (Mild, Verified 04/11/23 09:00) burning skinthiopental [From Pentothal] Allergy (Verified 04/11/23 09:00) Anaphylaxis Medications buspirone 10 mg tablet 10 mg PO DAILY 07/05/20 [History Confirmed 04/11/23] citalopram 40 mg tablet 40 mg PO DAILY 07/05/20 [History Confirmed 04/11/23] sghhmmkzolqy-Rw-qxfv-minerals 1 ea PO DAILY 07/17/20 [History Confirmed 04/11/23] acetaminophen 500 mg tablet 1,000 mg (2 x 500 mg) PO Q8 #100 tabs 08/02/20 [Rx Confirmed 04/11/23] esomeprazole magnesium 20 mg capsule,delayed release (Nexium) 20 mg PO DAILY #30 caps 01/27/23 [Rx Confirmed 04/11/23] ondansetron 4 mg disintegrating tablet 4 mg PO Q8H PRN PRN Nausea #10 tabs 01/27/23 [Rx Confirmed 04/11/23] elmxkf-pcmurtfv-yegdpzo 36,000-114,000-180,000 unit capsule,delay rel (Creon) See Rx Instructions PO .COMPLEX #56 caps 02/10/23 [Rx Confirmed 04/11/23] amlodipine 2.5 mg tablet 2.5 mg PO DAILY 03/26/23 [History Confirmed 04/11/23] methylprednisolone 4 mg tablet 4 mg PO QAM 03/26/23 [History Confirmed 04/11/23] PFSH Surgical History H/O foot surgery Social History Smoking Status: Never smoker HPI HPI HPI: Patient is a 72-year-old female here to discuss her cholecystectomy and her MRI results. She is still having right upper quadrant and epigastric pain. ROS General General: Yes weight change and fatigue; No appetite, colon cancer, breast cancer or weakness HEENT HEENT: No difficulty swallowing, eye injury, eye surgery, swollen glands or hoarseness Endo Endocrine: No thyroid disease, diabetes mellitus, thyroid cancer, Hair loss, heat intolerance or cold intolerance Skin Skin: No rash or changing moles Musc Musculoskeletal: Yes back problems and arthritis; No rheumatoid arthritis, gout or joint pain Cardio Cardiovascular: Yes heart disease and high blood pressure; No murmur, pacemaker, atrial fibrillation, heart attack, heart stent, palpitations, shortness of breat with exertion or chest pain Psych Psychiatric: No depression, anxiety or hearing voices Resp Respiratory: No shortness of breath, No sleep apnea, No cough, No COPD, No asthma, No emphysema and No wheezing Gastro Gastrointestinal: Yes abdominal pain, Yes nausea or vomiting, No diarrhea, No constipation, No blood in stool, No acid reflux, No hemorrhoids, No ulcers, No gallbladder problem and No black,tarry stools Tho Hematologic: No blood thinners, No blood disorders, No bleeding, No anemia and No blood clots Neuro Neurologic: No system reviewed and no additional complaints, except as documented, No as per HPI, No abnormal gait, No abnormal hearing, No abnormal movements, No abnormal speech, No behavioral changes, No burning sensations, No confusion, No convulsions, No disequilibrium, No dizziness, No localized w eakness, No frequent falls, No headache(s), No lack of coordination, No loss of vision, No memory loss, No numbness, No other visual disturbances, No radicular pain, No restless legs, No sensory deficit, No syncope, No tingling, No tremor(s), No weakness and No other Exam Const General: cooperative Orientation: alert and oriented x3 HENMT Head: normal to inspection Neck Neck: normal visual inspection and full ROM Chest Chest palpation & inspection: normal inspection of the chest Resp Effort & Inspection: normal respiratory effort Auscultation: clear to auscultation bilaterally Cardio Rate: regular rate Rhythm: regular rhythm GI Inspection: non-distended Palpation: soft and nontender Skin General: no rashes or lesions noted Neuro General: patient alert and patient oriented x3 Extrem General: full ROM Psych Appearance: grossly normal Mental Status: mental status grossly normal Assessment and Plan Assessment and Plan (1) Gallbladder polyp: Status: Chronic (2) Abnormal biliary HIDA scan: Status: Chronic Plan The patient had an abnormal HIDA scan and she has a gallbladder polyp versus mass. I did an MRI which shows that it is encapsulated within the gallbladder. I plan on laparoscopic cholecystectomy. I discussed the procedure in detail with the patient. I discussed the risks, benefits, and alternatives of the procedure. I discussed the risks including but not limited to bleeding, infection, injury to surrounding organs such as the liver, bile duct, bowels. I did discuss the possibility of having to convert to an open procedure as well as the possibility that if any injuries occurred this may necessitate further surgery at a tertiary care center. Niko Cristobal MD Pager: [facility] [address] [place] [address], [address] [place] [address] Office: I have examined the patient and the H&P has been reviewed. There are no clinical changes since date of exam.
--- NOTE | 2023-04-17 08:36 | RAD_ITS ---
STUDY: INTRAOPERATIVE CHOLANGIOGRAM. REASON FOR EXAM: Female, 72 years old. LAP TIFFANIE FLUOROSCOPY TIME (if supplied): ( 12 seconds ) minutes/seconds. 3.58 mGy TECHNIQUE: An intraoperative Cholangiogram was performed by the surgeon. Imaging was performed. COMPARISON: None. FINDINGS: Intra and extra hepatic biliary ducts are unremarkable. No intraluminal filling defect. Free flow of contrast into the duodenum. RAD/Cholangiogram/ O R,Initial IMPRESSION: Unremarkable intraoperative cholangiogram. Electronically Signed: Papo Cunningham MD at 12:56 EDT ,
[2023-04-17] MEDS: Cefotetan 2 GM in 0.9% NS 100 ML IV (08:41)
[2023-04-17] MEDS: Bupivacaine 0.25% 30 ML Vial (09:39)
--- NOTE | 2023-04-17 09:47 | OP.PCM_ITS ---
Report of Operation Date of Procedure: 04/17/23 Pre-Operative Diagnosis: Biliary dyskinesia and right upper quadrant pain, gall bladder mass Post-Operative Diagnosis: Same Surgery/Procedure Performed:: Laparoscopic cholecystectomy with cholangiogram Type of Anesthesia: General/Regional Estimated Blood Loss (mL): 10 Description of Procedure: After obtaining informed consent patient was brought back to the operating room. General anesthesia was induced. The abdomen was prepped and draped in usual sterile fashion. A small midline incision was made superior to the umbilicus and deepened to the level of fascia. The fascia was elevated and incised. Next the peritoneum was elevated and incised in the same fashion. Finger sweep was performed and the Hummel trocar was placed into the abdomen. The balloon was inflated. The abdomen was inflated to 15 mmHg. Next a camera was introduced into the abdomen and the abdomen was inspected. Next under direct visualization three 5-mm ports were placed one subxiphoid and 2 subcostal. Next the gallbladder was elevated and retracted toward the right shoulder. The peritoneum was stripped from the gallbladder. The infundibulum was located and retracted laterally. Next the triangle of Calot was dissected and the cystic duct and cystic artery were identified. Cholangiograms were performed. The Purdy clamp was used to clamp across the infundibulum and the catheter needle was inserted into the gallbladder. Under fluoroscopy contrast was instilled into the gallbladder and the common duct, cystic duct as well as proximal hepatic ducts were identified. There was good filling of the duodenum. There were no filling defects noted in the common bile duct. The clamp was removed as well as the needle and the infundibulum was grasped once more. Three hemolock clips were placed across the cystic duct. The cystic duct was then divided leaving 2 clips on the stump. The cystic artery was clipped and divided in the same fashion. The hook cautery was then used to take the gallbladder off of the gallbladder bed. Hemostasis was obtained. Gallbladder fossa was irrigated and no active bleeding or bile leakage was noted. Next the camera was introduced in the subxiphoid port. An Endopouch bag was placed through the umbilical port and the gallbladder was placed into it. The gallbladder was then removed through the umbilical incision. The camera was then reinserted through the umbilical port. The gallbladder fossa was inspected once more and noted to be hemostatic with no leaking bile. The abdomen was suctioned dry. The 5 mm ports were removed under direct visualization. The umbilical port was then removed and the air was removed from the abdomen. Next using an 0 Vicryl suture the umbilical fascia was closed in a fofyxr-[id number]-txuug fashion. The umbilical port site was irrigated local anesthetic was administered to all the incisions. All the incisions were closed with interrupted subcuticular 4-0 Monocryl sutures f ollowed by Steri-Strips and dressings. The patient was awoken and taken to PACU in stable condition. Admit VTE Documentation VTE Mechan Device Prophylaxis: SCD's
--- NOTE | 2023-04-17 09:48 | DCINST_ITS ---
Discharge Instructions Procedure Gallbladder Diet Discharge Diet: Light diet - advance as tolerated Activity Discharge Activity: May Not Drive (for 2-3 days or while taking narcotic pain medications.) and - (Do not drive, work heavy equipment or sign legal documents for 24 hours.) May shower in (days): 1 Lifting Restrictions: 20 lbs for 2 weeks Additional Activity Instructions:: Pain medication may cause nausea. You should typically eat light foods as you take your pain medications. Pain medication may also cause constipation. If this is a problem for you, please discuss with your doctor. Dressing / Incision Call your doctor if your incision/area has: Continuous Slow Oozing, Sudden Increased Bleeding, Increased Pain/ Swelling, Increased Redness and Foul Smelling Discharge Call your doctor if you observe: Fever of 101 or Higher Suture Line Care: Avoid Pulling/Pushing and Avoid Pinching/Bending Remove Dressing in: 2 days Additional Dressing/Incision Instructions:: Leave operative bandaids on for 2 days. When you remove dressing, leave Steri-Strips on until your follow-up appointment, or until the Steri-Strips fall off on their own. Follow Up Care Please Follow Up With: Niko Cristobal MD When: Please call to schedule 2 week follow up appointment. [phone] Test Results: Test results from this visit will be discussed in further detail at your follow- up appointment, if applicable. Discharge Plan Admission Attending Provider: Niko Cristobal Primary Care Provider: Leslie Santiago Discharge Orders/Prescriptions Prescriptions: New oxycodone-acetaminophen [Percocet] 5-325 mg tablet 1 tab PO Q4H PRN (Reason: pain) 5 Days Qty: 20 0RF No Action citalopram 40 mg tablet 40 mg PO DAILY buspirone 10 mg tablet 10 mg PO DAILY Patient Comments: TAKE 1 TABLET BY MOUTH ONCE DAILY amlodipine 2.5 mg tablet 2.5 mg PO DAILY gihkluabsvfv-As-htbo-minerals 1 EACH tablet 1 ea PO DAILY esomeprazole magnesium [Nexium] 20 mg capsule,delayed release(DR/EC) 20 mg PO DAILY Qty: 30 0RF ondansetron [ondansetron] 4 mg tablet,disintegrating 4 mg PO Q8H PRN PRN (Reason: Nausea) Qty: 10 0RF alprazolam 1 mg tablet 0.5 mg PO PRN PRN (Reason: anxiety) acetaminophen 500 MG tablet 1,000 mg PO Q8 PRN (Reason: pain) Creon 36,000-114,000- 180,000 unit capsule,delayed release(DR/EC) See Rx Instructions PO .COMPLEX Qty: 56 0RF Rx Instructions: take 1-2 with snacks and 2-3 with meals She will have a voucher Referrals / Follow Up: Leslie Santiago DO [Primary Care Provider] - Disposition Disposition (needs filled in before D/C Order can be placed): Home, Self Care
== END 2023-04-17 13:05 | disposition home or self-care (01) ==
LOC: SDC 06:44 → AC 06:45
PROVIDERS: PCP Family Medicine; Referring Provider Surgery; Visit Provider Surgery
PROC: (CPT 47610; principal; 2023-04-17 08:10)
DX: K81.1 Chronic cholecystitis (principal); I10 Essential (primary) hypertension; Z79.899 Other long term (current) drug therapy
CPT/HCPCS: 47563; 00790; 74300; 76000; 88304; 93005; J7120; J2405

== ENCOUNTER → 2023-04-23 | Outpatient (CLI) | payer MEDICARE, SELFPAY ==
--- NOTE | 2023-04-23 16:19 | RAD_ITS ---
INDICATION: Achilles tendinitis, left leg EXAMINATION/TECHNIQUE: X-RAY - LEFT XR Foot Min 3 Views 3 VIEWS COMPARISON: FINDINGS: SOFT TISSUES: No soft tissue swelling or gas. No radiopaque foreign body. BONES/JOINTS: No acute fracture or subluxation.. Normal alignment. There is joint space narrowing and sclerosis at the first metatarsophalangeal joint. There is mild joint space narrowing at the tarsometatarsal joints. There is prominent enthesophyte formation on the calcaneus.. No sclerotic or destructive changes observed. RAD/Foot min 3 Views IMPRESSION: Degenerative changes. Electronically Signed: Jean Adams, at 8:30 EDT ,
== END | disposition home or self-care (01) ==
LOC: MTRAD 16:18
PROVIDERS: PCP Family Medicine; Visit Provider Podiatrist
DX: M76.62 Achilles tendinitis, left leg (principal)
CPT/HCPCS: 73630

== ENCOUNTER → 2023-07-07 | Outpatient (CLI) | payer MEDICARE, SELFPAY ==
--- NOTE | 2023-07-07 12:52 | CT_ITS ---
STUDY: CT ABDOMEN AND PELVIS WITH AND WITHOUT CONTRAST REASON FOR EXAM: Female, 72 years old. Pancreatic protocol. Kidney stones. RADIATION DOSAGE (If Supplied By Facility): CTDIvol = ( 16.46 ) mGy, DLP = ( 1918.15 ) mGycm TECHNIQUE: Transaxial images were obtained from the dome of the diaphragm to the symphysis pubis without oral contrast. IV 100mL Isovue-300 was administered. Sagittal and coronal images were reconstructed. Individualized dose optimization techniques were used for this CT. COMPARISON: None. FINDINGS: Minimal linear scarring at the lung bases. The visualized portions of the heart are within normal limits. Normal liver. Patient is status post cholecystectomy. Normal spleen. There is diffuse atrophy of the pancreas. Normal bilateral adrenal glands. Normal right kidney. Normal left kidney. Normal visualized stomach. Normal small intestine. Moderate amount of fecal material is seen in the colon. Scattered sigmoid diverticula. There is non-visualization of the appendix. Normal abdominal aorta. Normal inferior vena cava. Normal retroperitoneum. Normal urinary bladder. Normal abdominal wall. There are degenerative changes of the visualized lumbar spine. Minimal anterior listhesis of L3 on L4. Status post right total hip replacement. CT/CT Abd/Pelvis W/WO Contrast IMPRESSION: Status post cholecystectomy. Pancreatic atrophy. Electronically Signed: Papo Cunningham MD at 15:03 EDT ,
[2023-07-07 14:17] LABS: CREATININE FINGERSTICK < 0.9 mg/dL (0.55-1.02); EGFR FINGERSTICK > 60.0000 mL/min (>60)
== END | disposition home or self-care (01) ==
PROVIDERS: PCP Family Medicine; Referring Provider Internal Medicine Gastroenterology; Visit Provider Internal Medicine Gastroenterology
DX: C80.1 Malignant (primary) neoplasm, unspecified (principal)
CPT/HCPCS: 74178; Q9967

== ENCOUNTER → 2024-03-18 | Outpatient (CLI) | payer MEDICARE, SELFPAY ==
--- NOTE | 2024-03-18 09:51 | CDU_ITS ---
Reason For Study: carotid bruit Rt. Velocities/BP Lt. Velocities/BP Prox CCA 91.0/19.2 cm/sec. Prox CCA 82.6/20.6 cm/sec. Mid CCA 76.8/19.2 cm/sec. Mid CCA 85.2/20.6 cm/sec. Dist CCA 73.0/17.3 cm/sec. Dist CCA 66.9/17.1 cm/sec. Prox ICA 52.2/19.2 cm/sec. Prox ICA 34.6/13.7 cm/sec. Mid ICA 57.9/20.1 cm/sec. Mid ICA 52.9/18.0 cm/sec. Dist ICA 74.0/24.8 cm/sec. Dist ICA 60.8/19.8 cm/sec. Rt. ICA/CCA = 1.0. Lt. ICA/CCA = .7. Prox ECA 74.0/18.2 cm/sec. Prox ECA 70.3/11.9 cm/sec. Rt. Vert. 27.3/6.6 cm/sec. Lt. Vert. 30.1/6.9 cm/sec. Right Extracranial There is intimal thickening but no significant atherosclerotic plaque noted in the right common carotid artery. There is intimal thickening but no significant atherosclerotic plaque noted in the right internal carotid artery. There is intimal thickening but no significant atherosclerotic plaque noted in the right external carotid artery. Antegrade flow is noted in the right vertebral artery. Left Extracranial There is intimal thickening but no significant atherosclerotic plaque noted in the left common carotid artery. There is intimal thickening but no significant atherosclerotic plaque noted in the left internal carotid artery. There is intimal thickening but no significant atherosclerotic plaque noted in the left external carotid artery. Antegrade flow is noted in the left vertebral artery. Procedure Carotid Duplex 37037. This is a Carotid Duplex examination using B-mode, color flow and specral Doppler. The exam was diagnostic. Exam performed in department. VL/Carotid Duplex Ultrasound Interpretation Summary Normal right extracranial internal carotid. Normal left extracranial internal carotid. Patent and antegrade vertebrals bilaterally. Ordering Physician: Leslie Santiago Referring Physician: Leslie Santiago Performed By: Ishan Camp RVT
== END | disposition home or self-care (01) ==
PROVIDERS: PCP Family Medicine; Referring Provider Family Medicine; Visit Provider Family Medicine
DX: R09.89 Other specified symptoms and signs involving the circulatory and respiratory systems (principal); G45.9 Transient cerebral ischemic attack, unspecified
CPT/HCPCS: 93880

== ENCOUNTER 2024-05-20 13:00 | Outpatient (RCR) | payer MEDICARE, SELFPAY ==
--- NOTE | 2024-04-27 13:52 | HP.PTEVAL_ITS ---
Patient's Visit Information Visit Information Visit Information: CARMEN RODRIGES is a 73 year old F referred to Physical Therapy by Dr. Minerva Epperson DPM with a diagnosis of L achilles tendonits. Date of Evaluation: 04/27/24 Physical Therapist: Rich Mcarthur DPT, OCS, CSCS Visit Plan Frequency: 3x /Week Duration: 4-6 Weeks Plan: 3x/week for 4-6 weeks for 1. US nonthermal to L achilles 2. STM and rolout to gastroc soleus L and foot STM 3. PROM and stretching L gastroc-soleus 4. gentle strength and confidence progression to L foot ankle strength and proprioception tens if needed for pain consisder ionto(not covered by insurance), RPW, nightsplint, boot if not improving. Was unable to do boot doctor ordered due to back pain. heel lifts recommendeed today and she will seek to purchase with link given. Subjective Subjective: I have a L heel spur. It got fired up last fall, calmed down and then set off again when she changed shoes. Has to wear shoes with out a back but shoes with a back flared her up. That got a lot worse earlier in the year and now has been limping for 6-7 months. Has tried ice and meds and then went back to Dr. Epperson. Tried prednisone which helped some but flared up when off it again. Prednisone was this past spring. Limps always as she cannot stand to put full weight through it. 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 Still working and is worse after work 06/15 and it is hot and painful. Lives with dtr, . Has steps to get in and limps up them. Basic ADLs are al getting done I. Hobbies: no time with work and handicapped dtr. No other treatments. Doctor wants therapy and then last ditch effort will be injections. Sleep is interrupted as it wakes her up, she sleeps with leg elevated. Cannot be laid up with surgery as she has to take care of her dtr. Has tried stretching step or ladder, throughout day. Pain L heel cord: Pain Intensity (Out of 10): 1 Pain Intensity Range: 1 and 9 Comment: achy all the time. Objective Objective: Large L antalgia into PT turning L leg sideways to avoid pushoff. , short R step. I. transfers chair and bed are I but holds L leg tight and cramps in L HS. Max tender L achilles proximal to bulbous nodule distal tendon just above insertion whcih is also tender. Tender medial adn lateral ankle also. hesitant to move L knee and ankle, initially -5 DF adn 20 PF but with time can get 0 DF and 50 PF with some discomfort, inv /ev L also hesitant at 30 inv and 15 eversion L and good ROM on R at 40 inv, 22 eversion and 3 DF and 60 PF. Hips and knee AROM WFL but again hesitant to extend L knee. strength at ankle 3 on L with pain PF, 4 on R, knees 4+, hips 3+ abd and ext adn 4- flexion no pain. relfexes 2/3 patella and achilles Sensation WNL to gross light touch. foot PF with squeezt to L gastroc Balance/Special Test Scores Lower Extremity Functional Score: 32 Goals Goal 1:: Sleep without waking at night due to pain Goal Time Frame: 4-6 Weeks Goal 2:: Pain 75% better at 2/10 at worst and painfree at rest Goal Time Frame: 4-6 Weeks Goal 3:: Walk without antalgia in gait pattern community Goal Time Frame: 4-6 Weeks Goal 4:: I appropriate management of condition Goal Time Frame: 4-6 Weeks Goal 5:: LEFS score 50 Goal Time Frame: 4-6 Weeks Rehabilitation Potential Physical Therapy Diagnosis: Pain and hesitancy in L ankle causing limtiations in gait and QOL Rehabilitation Potential: Fair Anticipated Interventions Patient/Client Instruction: Educate patient on: Condition and Plan of Care For the Purpose of:: To decrease pain, To decrease swelling/inflammation, To improve nutrient delivery to tissue, To increase tolerance to ac tivity/condition/position and To improve safety with gait Therapeutic Exercise to Include: Strength training, Flexibilty training, Passive ROM and Active ROM For the Purpose of:: To decrease pain, To increase ROM, To improve nutrient delivery to tissue, To improve muscle performance and motor function and To increase tolerance to activity/condition/position Manual Therapy Techniques to Include: Trigger point massage, Mobilization, Passive ROM and Soft tissue mobilization For the Purpose of:: To decrease pain, To increase ROM and To improve nutrient delivery to tissue TENS: Yes Cryotherapy (ice pack, ice massage): Yes Ultrasound (thermal/non thermal): Yes (nontheremal) For the Purpose of:: To decrease pain, To decrease swelling/inflammation and To increase ROM Text: Thank you for the opportunity to evaluate your patient. For Medicare and Medicare HMO plans, please review the plan of care and approve it. It will need to be FAXED BACK to us at [phone] for Medicare purposes. For Medicare only, by signing this I certify the plan of care. Please let me know if there are questions or concerns regarding this plan of care. Physician Signature: Date:
--- NOTE | 2024-05-20 13:58 | HP.PTREVAL ---
Re-Evaluation Intro: Dr. Minerva Epperson, DPM, It has been my pleasure to treat CARMEN RODRIGES over the last 7 visits for L achilles tendonits. Please see the progress note below for an update on the physical therapy plan of care! Subjective Subjective: I think I am making progress. Intense burning pain is greatly reduced. Intensity adn frequency is better. Was painful last time as she hit her heal on something. Also had to run after a cart and it hurt for a day. stayed off it yesterday and much better today. To doctor next week. Injections were an option. Not close to where she wants to be. Activities are still limited even with working at [employer]. Objective Objective/Function: slow Df and painful in achilles but AROM to 2 degrees, other ROM at L ankle WFL but slow. Max tender still distal achilles. First number of steps still very tender today adn antalgic on L Plan Plan Plan: pt to doctor next week adn to call after for continuation of therapy or d/c to more aggressive other treatments. PT would be US, STM to foot and ankle, mobs for DF and stretching, ecc strength achilles L. 3 more treatments then seek more approval if desired. Pt still wishing to holkd on ionto and RPW as they are not covered by her insurance. Balance/Gait/Functional tests Balance/Special Test Scores Lower Extremity Functional Score: 37 Goals Goals Goal 1:: Sleep without waking at night due to pain Goal Time Frame: 4-6 Weeks Goal 2:: Pain 75% better at 2/10 at worst and painfree at rest Goal Time Frame: 4-6 Weeks Goal 3:: Walk without antalgia in gait pattern community Goal Time Frame: 4-6 Weeks Goal 4:: I appropriate management of condition Goal Time Frame: 4-6 Weeks Goal 5:: LEFS score 50 Goal Time Frame: 4-6 Weeks Anticipated Interventions Anticipated Interventions Patient/Client Instruction: Educate patient on: Condition and Plan of Care For the Purpose of:: To decrease pain, To decrease swelling/inflammation, To improve nutrient delivery to tissue, To increase tolerance to activity/condition/position and To improve safety with gait Therapeutic Exercise to Include: Strength training, Flexibilty training, Passive ROM and Active ROM For the Purpose of:: To decrease pain, To increase ROM, To improve nutrient delivery to tissue, To improve muscle performance and motor function and To increase tolerance to activity/condition/position Manual Therapy Techniques to Include: Trigger point massage, Mobilization, Passive ROM and Soft tissue mobilization For the Purpose of:: To decrease pain, To increase ROM and To improve nutrient delivery to tissue TENS: Yes Cryotherapy (ice pack, ice massage): Yes Ultrasound (thermal/non thermal): Yes (nontheremal) For the Purpose of:: To decrease pain, To decrease swelling/inflammation and To increase ROM Re-Evaluation Ending Re-evaluation ending: Please do not hesitate to contact me at [phone] by phone or if you have questions or concerns regarding this new plan of care! Sincerely, Rich Mcarthur, DPT, OCS, CSCS
--- NOTE | 2024-07-20 11:07 | HP.PTDCNRP_ITS ---
Patient Information Patient Information: CARMEN RODRIGES was seen in my office for initial evaluation on 04/27/24. The following Plan of Care was established for this patient: POC Established Initial Frequency: 3x /Week Initial Duration: 4-6 Weeks Anticipated Interventions Patient/Client Instruction: Educate patient on: Condition and Plan of Care For the Purpose of:: To decrease pain, To decrease swelling/inflammation, To improve nutrient delivery to tissue, To increase tolerance to activity/condition/position and To improve safety with gait Therapeutic Exercise to Include: Strength training, Flexibilty training, Passive ROM and Active ROM For the Purpose of:: To decrease pain, To increase ROM, To improve nutrient de livery to tissue, To improve muscle performance and motor function and To increase tolerance to activity/condition/position Manual Therapy Techniques to Include: Trigger point massage, Mobilization, Passive ROM and Soft tissue mobilization For the Purpose of:: To decrease pain, To increase ROM and To improve nutrient delivery to tissue TENS: Yes Cryotherapy (ice pack, ice massage): Yes Ultrasound (thermal/non thermal): Yes (nontheremal) For the Purpose of:: To decrease pain, To decrease swelling/inflammation and To increase ROM Last Seen Last Seen: This patient was last seen in our office 05/20/24. Pertinent comments regarding their Physical therapy will appear below: Pt seen 7 visits of POC and was only 20% better. He was to revisit doctor after that last visit and contact us if he needed to return to therapy. at this point, it has been over 2 months and I will discontinue per POC. At this point I will be discontinuing this patient from physical therapy. I would be happy to see this patient again in the future if found appropriate by the physician. Thank you! Rich Mcarthur, DPT, OCS, CSCS Balance/Gait/Functional tests Balance/Special Test Scores Lower Extremity Functional Score: 37
== END 2024-05-20 19:00 | disposition home or self-care (01) ==
LOC: PT 13:00
PROVIDERS: PCP Family Medicine; Referring Provider Podiatrist; Visit Provider Podiatrist
DX: M76.62 Achilles tendinitis, left leg (principal)
CPT/HCPCS: 97035; 97110; 97140; 97161

== ENCOUNTER → 2024-06-02 | Outpatient (CLI) | payer MEDICARE, SELFPAY ==
[2024-06-04 04:07] LABS: Carbohydrate Ag 19-9 2261 31 U/mL (0-35)
== END | disposition home or self-care (01) ==
LOC: LAB 11:30
PROVIDERS: PCP Family Medicine; Referring Provider Internal Medicine Gastroenterology; Visit Provider Internal Medicine Gastroenterology
DX: C80.1 Malignant (primary) neoplasm, unspecified (principal)
CPT/HCPCS: 36415; 86301

== ENCOUNTER → 2024-06-09 | Outpatient (CLI) | payer MEDICARE, SELFPAY ==
[2024-06-12 00:08] LABS: Pancreatic Elastase, Fecal 491 (>200)
== END | disposition home or self-care (01) ==
LOC: LAB 09:05 → LABSPEC 09:06
PROVIDERS: PCP Family Medicine; Referring Provider Internal Medicine Gastroenterology; Visit Provider Internal Medicine Gastroenterology
DX: K82.4 Cholesterolosis of gallbladder (principal); C80.1 Malignant (primary) neoplasm, unspecified
CPT/HCPCS: 82653

== ENCOUNTER → 2024-06-23 | Outpatient (CLI) | payer MEDICARE, SELFPAY ==
[2024-06-23 15:11] LABS: CREATININE FINGERSTICK < 1.0 mg/dL (0.55-1.02); EGFR FINGERSTICK > 60.0000 mL/min (>60)
--- NOTE | 2024-06-23 16:50 | CT_ITS ---
EXAM: CT ABDOMEN WITHOUT AND WITH INTRAVENOUS CONTRAST CLINICAL INDICATION: Precancerous pancreatic tumor, Pancreatic protocol TECHNIQUE: Helically acquired images were obtained of the abdomen without and with intravenous contrast. This CT exam was performed using one or more of the following dose reduction techniques: automated exposure control, adjustment of the mA and/or kV according to patient size, and/or use of iterative reconstruction technique. CONTRAST: IV 100mL Isovue-370 oral contrast was also given. RADIATION DOSE: CTDIvol = 16.51 mGy, DLP = 1321.92 mGy-cm COMPARISON: CT abdomen and pelvis with and without contrast 07/07/2023. FINDINGS: LOWER THORAX: Linear atelectases in the medial aspect of the lung bases. No cardiomegaly. No significant pericardial effusion. LIVER: Unremarkable. Homogeneous. No focal mass. GALLBLADDER AND BILE DUCTS: Unremarkable. No visible gallbladder presumably from laparoscopic cholecystectomy. No intrahepatic or extrahepatic biliary ductal dilatation. PANCREAS: Unremarkable. No suspicious mass in the uncinate process, head, body and tail of the pancreas. SPLEEN: Unremarkable. Normal size without focal cystic or solid mass. ADRENALS: Unremarkable. No nodules. KIDNEYS AND URETERS: Unremarkable. Normal renal size and position. No hydronephrosis. STOMACH AND BOWEL: Unremarkable. No stomach or bowel distention. No focal inflammatory change. INTRAPERITONEAL SPACE: Unremarkable. No ascites or other fluid collection. No free air. BONES/JOINTS: Pronounced disc space height narrowing with degenerative vacuum phenomenon at L3-L4 and L4-L5 disc space levels. Mild degenerative anterolisthesis of L3 on L4. Calcified posterior bulging annulus at the L2-L3 disc space level. Moderately pronounced stenosis of the bilateral L5-S1 intervertebral neuroforamina. Moderately pronounced stenosis of the bilateral L4-L5 intervertebral neuroforamina. No lytic or blastic lesions. SOFT TISSUES: Unremarkable. No discrete abdominal wall hernia. VASCULATURE: Unremarkable. Abdominal aorta is non-dilated. LYMPH NODES: No enlarged lymph nodes. CT/Abdomen W/WO IV Contrast IMPRESSION: 1. Limited study due to motion in the contrast portion of the images. 2. No CT evidence of any suspicious mass in the uncinate process, head, body and tail of the pancreas. Dedicated MR of the pancreas with and without contrast will be very helpful for further evaluation of precancerous pancreatic tumor since this is not obvious on CT. 3. No obvious significant change. Electronically Signed: Blu Swanson MD at 14:54 EDT ,
== END | disposition home or self-care (01) ==
PROVIDERS: PCP Family Medicine; Referring Provider Internal Medicine Gastroenterology; Visit Provider Internal Medicine Gastroenterology
DX: Z01.812 Encounter for preprocedural laboratory examination (principal); C80.1 Malignant (primary) neoplasm, unspecified; D49.0 Neoplasm of unspecified behavior of digestive system
CPT/HCPCS: 74170; Q9967

== ENCOUNTER 2024-12-01 11:50 | Outpatient (CLI) | payer MEDICARE, SELFPAY ==
[2024-12-06 09:08] LABS: Alternaria alternata <0.10 kU/L (Class 0); Beef <0.10 kU/L (Class 0); Bermuda Grass <0.10 kU/L (Class 0); Bluegrass, Kentucky <0.10 kU/L (Class 0); Cat Hair/Dander, Standard <0.10 kU/L (Class 0); Chocolate <0.10 kU/L (Class 0); Clam <0.10 kU/L (Class 0); Codfish <0.10 kU/L (Class 0); Corn <0.10 kU/L (Class 0); D farinae Mite <0.10 kU/L (Class 0); D pteronyssinus <0.10 kU/L (Class 0); Dog Epithelia <0.10 kU/L (Class 0); Egg, White <0.10 kU/L (Class 0); Egg, Whole <0.10 kU/L (Class 0); Elm, American White <0.10 kU/L (Class 0); Milk (Cow) <0.10 kU/L (Class 0); Mouse Urine <0.10 kU/L (Class 0); Mussels <0.10 kU/L (Class 0); Oak, White <0.10 kU/L (Class 0); Peanut <0.10 kU/L (Class 0); Plantain, English <0.10 kU/L (Class 0); Pork <0.10 kU/L (Class 0); Ragweed, Short/Common <0.10 kU/L (Class 0); SCALLOP <0.10 kU/L (Class 0); SESAME SEED <0.10 kU/L (Class 0); Salmon <0.10 kU/L (Class 0); Shrimp <0.10 kU/L (Class 0); Soybean <0.10 kU/L (Class 0); Tuna <0.10 kU/L (Class 0); Walnut, (Food) <0.10 kU/L (Class 0); Wheat <0.10 kU/L (Class 0)
== END 2024-12-01 23:59 | disposition home or self-care (01) ==
LOC: LAB 11:52
PROVIDERS: PCP Family Medicine; Referring Provider Internal Medicine Gastroenterology; Visit Provider Internal Medicine Gastroenterology
DX: K58.9 Irritable bowel syndrome, unspecified (principal)
CPT/HCPCS: 36415; 86003; 86005

== ENCOUNTER → 2025-04-27 | Outpatient (CLI) | payer MEDICARE, SELFPAY ==
--- NOTE | 2025-04-27 18:51 | CT_ITS ---
PROCEDURE: EXTREMITY LOWER WITHOUT CONTRA 04/27/2025 REASON FOR EXAM: RECENT FALL AND SEVERE PAIN TECHNIQUE: EXTREMITY LOWER WITHOUT CONTRA Coronal and Sagittal reconstruction series were provided. CONTRAST: None One or more dose reduction techniques were used (e.g., Automated exposure control, adjustment of the mA and/or kV according to patient size, use of iterative reconstruction technique). RADIATION DOSE SUMMARY: DLP: 657 mGycm COMPARISON: April 06, 2025 x-ray FINDINGS: Bones: There is no fracture or dislocation identified. There is mild osteoarthritis with marginal osteophytes and mild joint space narrowing. Soft tissue swelling is noted overlying the trochanteric region, incompletely visualized. The visualized pelvic bones appear intact. Degenerative changes are noted in the lumbar spine. There is diverticulosis visible in the distal colon. There is no free fluid in the included portion of the pelvis. Vascular calcifications are noted. CT/Extremity Lower without Contra IMPRESSION: There is mild osteoarthritis with marginal osteophytes and mild joint space maynor rowing. MRI or bone scan could be helpful for further evaluation if there is clinical suspicion of a nondisplaced fracture. Soft tissue swelling is noted overlying the trochanteric region, incompletely v isualized. Reading Location: [facility]
== END | disposition home or self-care (01) ==
PROVIDERS: PCP Family Medicine; Referring Provider Orthopaedic Surgery; Visit Provider Orthopaedic Surgery
DX: M25.552 Pain in left hip (principal)
CPT/HCPCS: 73700

== ENCOUNTER → 2025-05-25 | Outpatient (CLI) | payer MEDICARE, SELFPAY ==
--- NOTE | 2025-05-25 12:50 | BD_ITS ---
PROCEDURE: DEXA BONE DENSITY STUDY 05/25/2025 REASON FOR EXAM: F, age 74 y/o . Postmenopausal. TECHNIQUE: DEXA BONE DENSITY STUDY COMPARISON: None FINDINGS: BMD and T-SCORES Lumbar spine: 1.094 g/cm2, T-score 0.7 Levels: L1 through L4 Left femoral neck: 0.695 g/cm2, T-score -1.4 Femoral neck comparison data not recommended for monitoring change. Left total hip: 0.846 g/cm2, T-score -0.8 The World Health Organization has defined the following categories based on bone density: Normal bone density: T-score equal to or greater than -1.0 Osteopenia: T-score between -1.0 and -2.5 Osteoporosis: T-score equal to or less than -2.5 FRAX (or Comparable) Fracture Risk Assessment: 10 Year Probability of Fracture: Major Osteoporotic Fracture: 17% Hip Fracture: 3% (Note: FRAX is not to be reported in setting of normal range bone density, osteoporosis on DEXA, known history of osteoporosis, prior osteoporotic hip or vertebral fracture, or for any patient undergoing pharmacological treatment for bone loss.) The National Osteoporosis Foundation (NOF) recommends pharmacological treatment for patients with a FRAX 10-year risk of 3% or higher for a hip fracture, or 20% or higher for a major osteoporotic fracture, to prevent osteoporosis and reduce fracture risk. The patient does meet the pharmacological treatment recommendations for prevention of osteoporosis. BD/Dexa Bone Density Study IMPRESSION: OSTEOPENIA. Recommend follow-up as clinically warranted. Reading Location: [facility]
== END | disposition home or self-care (01) ==
LOC: OPBD 12:30
PROVIDERS: PCP Family Medicine; Referring Provider Family Medicine; Visit Provider Family Medicine
DX: M81.0 Age-related osteoporosis without current pathological fracture (principal); M85.80 Other specified disorders of bone density and structure, unspecified site; Z78.0 Asymptomatic menopausal state
CPT/HCPCS: 77080

== ENCOUNTER → 2025-07-06 | Outpatient (CLI) | payer MEDICARE, SELFPAY ==
--- NOTE | 2025-07-06 16:10 | CT_ITS ---
PROCEDURE: ABDOMEN/PELVIS WITH CONTRAST 07/06/2025 REASON FOR EXAM: ABDOMINAL PAIN AND DIARRHEA TECHNIQUE: Procedure Code: [id number] Modality: CT Procedure: ABDOMEN/PELVIS WITH CONTRAST Coronal and Sagittal reconstruction series were provided. CONTRAST: Isovue-300 VOLUME: 100 mL One or more dose reduction techniques were used (e.g., Automated exposure control, adjustment of the mA and/or kV according to patient size, use of iterative reconstruction technique. RADIATION DOSE SUMMARY: DLP: There is a small hiatal hernia. MGycm COMPARISON: CT abdomen and pelvis dated 06/23/2024. FINDINGS: The lung bases are clear. There is no focal consolidation effusion or pneumothorax. Scarring is noted in the lower lobes bilaterally. Visible Heart appears normal. There is no pericardial effusion. The liver enhances normally. There is a tiny cyst in the left liver lobe. Normal portal and hepatic veins are present. The gallbladder appears to have been surgically removed. There is mild dilatation of the intra and extrahepatic biliary tree with tapering of the distal CBD normally. This is expected following cholecystectomy. Pancreas is slightly atrophic. There is no significant dilatation of the main pancreatic duct. The adrenal glands, spleen and kidneys are within normal limits. There are small cysts in the right kidney. There is no stone or hydronephrosis. No solid mass seen. The aorta is normal. 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 No retroperitoneal lymphadenopathy seen. No overt retroperitoneal lymphadenopathy. There is no bowel obstruction. No free air. Diverticulosis of the colon is identified without active diverticulitis. The uterus is retroverted. There is no adnexal mass. The urinary bladder is normal. No pelvic lymphadenopathy or abnormal fluid collection seen. Osseous structures reveal status post right hip arthroplasty. There is no acute fracture noted. Multilevel facet arthropathy seen. Grade 1 anterolisthesis present of L3 on L4. There is no ascites or free air. CT/Abdomen/Pelvis WITH Contrast IMPRESSION: No bowel obstruction or free air. Diverticulosis without active diverticulitis. Small cortical renal cyst. No significant change since previous exam. Reading Location: [facility]
== END | disposition home or self-care (01) ==
LOC: CT 13:32
PROVIDERS: PCP Family Medicine; Referring Provider Internal Medicine Gastroenterology; Visit Provider Internal Medicine Gastroenterology
DX: K58.9 Irritable bowel syndrome, unspecified (principal); R19.7 Diarrhea, unspecified; R10.9 Unspecified abdominal pain
CPT/HCPCS: 74177; Q9967

== ENCOUNTER 2025-07-28 05:20 | Day surgery (SDC) | payer MEDICARE, SELFPAY ==
--- NOTE | 2025-07-27 11:56 | PAT.ANESEVAL ---
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 When Was Last Pacemaker Check QUESTION #4 FULL TEXT: You/Your Family Experience fever (hyperthermia) with Anesthesia Last Oral Intake Last Oral intake: Last Oral Intake NPO since Meds taken in AM with sips of water? Meds patient instructed to take am of surgery PONV PONV - learning services coordinator: PONV - learning services coordinator Female Yes 07/27/25 11:42 HX of Motion Sickness Yes 07/27/25 11:42 HX of N/V After Surgery Yes 07/27/25 11:42 Non-Smoker Yes 07/27/25 11:42 Duration of Surgery greater No 07/27/25 11:42 than 60 minutes Number of Risk Factors 4 07/27/25 11:42 PONV Score Severe Risk 07/27/25 11:42 Height & Weight Height & Weight: Anesthesia: Height & Weight Height 5 ft 6 in 04/06/25 12:54 Respiratory Assessment Respiratory Assessment - learning services coordinator: Respiratory Tract Infection Hx - learning services coordinator Hx Respiratory Tract Infection No 07/27/25 11:42 STOP Sleep Apnea STOP Sleep Apnea - learning services coordinator: STOP Sleep Apnea - learning services coordinator Hx Hypertension Yes: controlled with med 07/27/25 11:42 Hx Sleep Apnea Yes 07/27/25 11:42 CPAP Yes 07/27/25 11:42 BIPAP No 07/27/25 11:42 Do you snore loudly (louder than talking or can be heard Do you often feel tired/ fatigued/ sleepy during daytime? Has anyone observed you stop breathing during sleep? STOP Results Positive 07/27/25 11:42 QUESTION #5 FULL TEXT : Do you snore loudly (louder than talking or can be heard through closed doors)? 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 - learning services coordinator: Tobacco Use History - learning services coordinator Tobacco Use Smoking Status Never smoker 07/27/25 11:42 Hx Tobacco Use No 07/27/25 11:42 Years Smoking Packs Smoked per Day Smoking Cessation Date was within the last 15 years Hx Smoking Cessation Date Hx Smoking Cessation Counseling Hematologic Medial History Hematologic Hx - learning services coordinator: Hematologic Medical Hx - clinical documentation clerk Hx of Blood Transfusion No 07/27/25 11:42 Hx of Transfusion in last 3 No 07/27/25 11:42 Months Date of Last Transfusion (if within last 3 months) Ever experience any problems No 07/27/25 11:42 with transfusion(s)? Specify any problems Hx of Preganancy in last 3 N/A 07/27/25 11:42 Months Nurse Filling Out Transfusion NBUCHER 07/27/25 11:42 & Questions: Date: 07/27/25 07/27/25 11:42 Time: 11:43 07/27/25 11:42 Patient unable to answer at this time (ie. confused, unrespo /Reproduction History /Reproductive History - learning services coordinator: /Reproductive Hx- learning services coordinator Hx Now No 07/27/25 11:42 Gestational Age (in weeks): EDC: Hx Hx Para Hx Section SAB No 07/27/25 11:42 [facility] Medical History (Updated 07/27/25 @ 11:49 by Minerva Gallegos) Leg cramps MVP (mitral valve prolapse) Pancreas (digestive gland) works poorly Wears glasses Cancer Depression Anxiety History of steroid therapy Arthritis DVT (deep venous thrombosis) Injury of back Injury of head and neck Seizures History of diverticulitis Gastric reflux Non-smoker CPAP (continuous positive airway pressure) dependence Sleep apnea History of edema Hypertension History of irregular heartbeat Home Medications ?Medication ?Instructions ?Recorded ?Last Taken ?Type buspirone 10 mg tablet 10 mg PO DAILY 07/05/20 Unknown History affuydkjgpoe-Sv-ufue-minerals 1 ea PO DAILY 07/17/20 Unknown History amlodipine 2.5 mg tablet 2.5 mg PO DAILY 03/26/23 Unknown History acetaminophen 500 mg tablet 1,000 mg PO Q8 PRN pain 04/16/23 Unknown History duloxetine 60 mg capsule,delayed 60 mg PO DAILY 08/13/23 Unknown History release tizanidine 2 mg capsule 2 mg PO QHS 06/02/24 Unknown History daija enzymes 1 tab PO TID 12/01/24 Unknown History omeprazole 20 mg capsule,delayed 20 mg PO BID PRN gerd 12/01/24 Unknown History release diphenoxylate-atropine 2.5 1 tab PO TID PRN diarrhea #90 tabs 07/05/25 Unknown Rx mg-0.025 mg tablet Allergy/AdvReac Type Severity Reaction Status Date / Time sulfamethoxazole (From Allergy Mild burning Verified 07/27/25 11:39 Bactrim) skin trimethoprim (From Bactrim) Allergy Mild burning Verified 07/27/25 11:39 skin thiopental (From Pentothal) Allergy Anaphylaxis Verified 07/27/25 11:39 Surgical History S/P laparoscopic cholecystectomy Hx of dilation and curettage Hx of surgical procedure Hx of colonoscopy Hx of total hip arthroplasty Hx of shoulder surgery Hx of appendectomy H/O foot surgery Social History Smoking Status: Never smoker Audit: Pertinent Findings Pertinent Findings EKG Perinent findings: 04/17/2023. Sinus rhythm occasional ventricular paced complexes. LVH. 70 bpm Recommendation Anesthesia Recommendation Anesthesia recommendation: OPTIMIZED for anesthesia
[2025-07-28] VITALS (8 sets, daily range): BP systolic 124–140; BP diastolic 79–86; PULSE 69–75; RESP 12–16; TEMP 36.3–36.6; O2SAT 98–99; BMI 28.6
--- OUTSIDE RECORDS SUMMARY | 2025-07-28 05:22 | XMS RPT_ITS | CCD ---
Author Organization [facility] Care Team Providers Care Binder Cutter Hand Name Role Phone BIJAL VICTORIA Unavailable Unavailable BIJAL VICTORIA Unavailable Unavailable BIJAL VICTORIA Unavailable Unavailable REED, ANNIE A Unavailable Unavailable REED, ANNIE A Unavailable Unavailable REED, ANNIE A Unavailable Unavailable Dr. Leslie Santiago Primary Care Provider Dr. Leslie Santiago Referring Provider Dr. Praveen Jacobs Attending Provider 1([facility])[phone] Dr. Niko Cristobal Attending Provider Dr. Niko Cristobal Referring Provider Dr. Niko Cristobal Other Provider Dr. Leslie Santiago DO Primary Care Provider 1([facility])[phone] Dr. Leslie Santiago DO Referring Provider 1([facility])[phone] Dr. Praveen Jacobs DO Attending Provider Dr. Praveen Jacobs DO Referring Provider Dr. Leslie Santiago DO Primary Care Provider 1([facility])[phone] Dr. Leslie Santiago DO Referring Provider Dr. Gabino Sheikh DO Attending Provider Dr. Gokul Maria MD Attending Provider Dr. Gabino Sheikh DO Referring Provider Dr. Leslie Santiago DO Attending Provider Dr. Praveen Jacobs DO Attending Provider Gabino Sheikh Attending Unavailable Leslie Santiago Referring Unavailable Malys, Leslie Primary Care Unavailable Crow, Gokul Attending Unavailable Malys, Leslie Primary Care Unavailable Malys, Leslie Primary Care Unavailable Crow, Gokul Attending Unavailable Malys, Leslie Referring Unavailable Borruso, Gabino Attending Unavailable Malys, Leslie Primary Care Unavailable Borruso, Gabino Attending Unavailable Borruso, Gabino Referring Unavailable Malys, Leslie Primary Care Unavailable Malys, Leslie Primary Care Unavailable Friend, Praveen Attending Unavailable Malys, Leslie Referring Unavailable Malys, Leslie Referring Unavailable Malys, Leslie Primary Care Unavailable Malys, Leslie Attending Unavailable Malys, Leslie Primary Care Unavailable Friend, Praveen Attending Unavailable Friend, Praveen Referring Unavailable Malys, Leslie Primary Care Unavailable Friend, Praveen Attending Unavailable Friend, Praveen Referring Unavailable Malys, Leslie Referring Unavailable Malys, Leslie Primary Care Unavailable Friend, Praveen Attending Unavailable Malys, Leslie Referring Unavailable Malys, Leslie Primary Care Unavailable Friend, Praveen Attending Unavailable Allergies Allergy Classification Reported Allergen(s) Allergy Type Date of Onset Reaction(s) Facility (1 source) amoxicillin / clavulanate Drug Allergy [facility] (1 source) cephalexin Drug Allergy [facility] (1 source) ciprofloxacin Drug Allergy [facility] (18 sources) Sulfamethoxazole Drug Allergy 0 burning skin [facility] (18 sources) Thiopental Drug Allergy 0 Anaphylaxis [facility] (18 sources) Trimethoprim Drug Allergy 0 burning skin [facility] (1 source) Sulfamethoxazole Drug Allergy 5 [facility] (1 source) Thiopental Drug Allergy 5 [facility] (1 source) Trimethoprim Drug Allergy 5 [facility] Medications Current Medications Medication Drug Class(es) Dates Sig (Normalized) Sig (Original) acetaminophen 500 mg oral tablet (20 sources) Start: 08-02-2020 End: 04-16-2023 take 2 tablets by mouth every eight hours as needed for pain Acetaminophen 500 MG tablet Active 1000 mg PO EVERY 8 HOURS as needed for pain April 16, 2023 12:00am Start: 08-02-2020 End: 04-16-2023 take 1000 mg by mouth every eight hours Acetaminophen Active 1000 MG PO EVERY 8 HOURS April 16, 2023 12:00am amLODIPine 2.5 mg oral tablet (11 sources) Dihydropyridine Calcium Channel Param Start: 03-26-2023 take 1 tablet by mouth once daily Amlodipine 2.5 mg tablet Active 2.5 mg PO DAILY March 26, 2023 12:00am busPIRone hydrochloride 10 mg oral tablet (18 sources) Start: 07-05-2020 take 1 tablet by mouth once daily Buspirone 10 mg tablet Active 10 mg PO DAILY July 05, 2020 12:00am DULoxetine 60 mg delayed release oral capsule (9 sources) Serotonin and Norepinephrine Reuptake Inhibitor Start: 08-13-2023 Duloxetine 60 mg capsule,delayed release(DR/EC) Active mg PO August 13, 2023 1:00am daija enzymes (9 sources) Start: 12-01-2024 daija enzymes Active PO December 01, 2024 1:00am methylPREDNISolone 4 mg oral tablet (1 source) Corticosteroid Start: 03-26-2023 take 4 mg by mouth once daily in the morning Methylprednisolone Active 4 MG PO EVERY MORNING March 26, 2023 12:00am Iaoysijybzjb-Bl-Ensp-M inerals (9 sources) Start: 07-17-2020 Ahzwmoqrtsov-Lm-Cmny- Minerals Active 1 EACH PO DAILY July 17, 2020 2:27pm Start: 07-17-2020 Multivitamin-C o-Uyux-Ncbdhywm Active 1 EACH PO DAILY July 17, 2020 12:00am Start: 07-17-2020 Multivitamin-C h-Ccwy-Bqzbzhai Active 1 EACH PO DAILY July 16, 2020 11:00pm Tnnkagkkvzim-Sj-Ohur-Mineral s 1 EACH tablet (9 sources) Start: 07-17-2020 take 1 tablet by mouth once daily Tysnthsjywms-Xj-Mblu-Minerals 1 EACH tablet Active 1 NMA PO DAILY July 17, 2020 12:00am omeprazole 20 mg delayed release oral capsule (9 sources) Proton Pump Inhibi tor Start: 12-01-2024 take 1 capsule by mouth twice daily Omeprazole 20 mg capsule,delayed release(DR/EC) Active 20 mg PO TWICE A DAY December 01, 2024 1:00am tiZANidine 2 mg oral capsule (20 sources) Centra l alpha- 2 Adrene rgic Agonis t Start: 06-02-2024 take 1 capsule by mouth at bedtime Tizanidine 2 mg capsule Active 2 mg PO AT BEDTIME June 02, 2024 12:00am Start: 07-05-2020 End: 09-13-2020 take 1 capsule by mouth three times daily as needed Tizanidine 2 mg capsule Discontinued 2 mg PO THREE TIMES A DAY as needed for muscle spasticity 40 0 July 05, 2020 12:00am September 13, 2020 12:15pm Completed/Discontinued Medications Medication Drug Class(es) Dates Sig (Normalized) Sig (Original) acetaminophen 325 mg / oxyCODONE hydrochloride 5 mg oral tablet (10 sources) Opioid Agonist Start: 04-17-2023 End: 05-01-2023 Oxycodone-Acetaminoph en (Percocet) 5-325 mg tablet Discontinued 1 {tbl} PO Q4H as needed for pain 20 5 0 April 17, 2023 May 01, 2023 7:45am Polyp of gallbladder Cholesterolosis of gallbladder ALPRAZolam 1 mg oral tablet (10 sources) Benzodiazepine Start: 04-16-2023 End: 12-01-2024 Alprazolam 1 mg tablet Discontinued 0.5 mg PO NEEDED as needed for anxiety April 16, 2023 12:00am December 01, 2024 11:58am Start: 04-16-2023 Alprazolam Act mirella 0.5 MG PO NEEDED April 16, 2023 12:00am amylase [id number] unt / lipase [id number] unt / protease [id number] unt delayed release oral capsule (12 sources) Start: 02-10-2023 End: 06-19-2023 Jvuske-Ccuvvkvu-Kiqrkvr (Creon) 36,000-114,000- 180,000 unit capsule,delayed release(DR/EC) Discontinued 0 PO .COMPLEX 56 0 February 10, 2023 12:00am June 19, 2023 3:06pm take 1-2 with snacks and 2-3 with meals She will have a voucher apixaban 2.5 mg oral tablet (18 sources) Factor Xa Inhibitor Start: 08-02-2020 End: 09-13-2020 take 1 tablet by mouth twice daily Apixaban 2.5 MG tablet Discontinued 2.5 mg PO BID@0700,1900 42 0 August 02, 2020 12:00am September 13, 2020 12:14pm cholestyramine resin 4000 mg powder for oral suspension (18 sources) Bile Acid Sequestrant Start: 08-18-2023 End: 06-02-2024 Cholestyramine (With Sugar) 4 gram powder Discontinued 4 g PO BEDTIME 378 3 August 18, 2023 3:33pm June 02, 2024 10:57am administer w/meal; avoid other meds within 1hr before or 4-6hr after dose Start: 06-19-2023 End: 08-18-2023 Cholestyramine (With Sugar) 4 gram powder Discontinued 4 g PO BEDTIME 378 0 June 19, 2023 12:00am August 18, 2023 3:34pm administer w/meal; avoid other meds within 1hr before or 4-6hr after dose Start: 06-19-2023 End: 08-18-2023 Cholestyramine (With Sugar) 4 gram powder Discontinued 4 g PO BEDTIME 378 June 19, 2023 12:00am August 18, 2023 3:34pm administer w/meal; avoid other meds within 1hr before or 4-6hr after dose citalopram 40 mg oral tablet (18 sources) Serotonin Reuptake Inhibitor Start: 07-05-2020 End: 08-13-2023 take 1 tablet by mouth once daily Citalopram 40 mg tablet Discontinued 40 mg PO DAILY July 05, 2020 12:00am August 13, 2023 2:06pm esomeprazole 20 mg delayed release oral capsule (16 sources) Proton Pump Inhibitor Start: 01-27-2023 End: 12-01-2024 take 1 capsule by mouth once daily Esomeprazole Magnesium (Nexium) 20 mg capsule,delayed release(DR/EC) Discontinued 20 mg PO DAILY 30 January 27, 2023 12:00am December 01, 2024 11:59am meloxicam 15 mg oral tablet (9 sources) Nonsteroidal Anti-inflammatory Drug Start: 08-13-2023 End: 06-02-2024 take 1 tablet by mouth once daily Meloxicam 15 mg tablet Discontinued 15 mg PO DAILY 30 August 13, 2023 1:00am June 02, 2024 10:57am Do not take in conjunction with other NSAID Tylenol is okay. ondansetron 4 mg disintegrating oral tablet (16 sources) Serotonin-3 Receptor Antagonist Start: 01-27-2023 End: 05-01-2023 take 1 tablet by mouth every eight hours as needed for nausea Ondansetron 4 mg tablet,disintegrati ng Discontinued 4 mg PO EVERY 8 HOURS NEEDED as needed for Nausea 10 0 January 27, 2023 12:00am May 01, 2023 7:45am oxyCODONE hydrochloride 5 mg oral tablet (18 sources) Opioid Agonist Start: 08-02-2020 End: 09-13-2020 take 5-10 mg by mouth every four hours as needed for pain Oxycodone 5 MG tablet Discontinued 5 - 10 mg PO EVERY 4 HOURS NEEDED as needed for Pain Score 4-10 60 0 August 02, 2020 September 13, 2020 12:15pm Other acute postprocedural pain traMADol hydrochloride 50 mg oral tablet (18 sources) Opioid Agonist Start: 07-05-2020 End: 08-02-2020 Tramadol 50 mg tablet Discontinued 50 mg PO NEEDED as needed for Pain 1-10 Or Fever July 05, 2020 12:00am August 02, 2020 8:50am Problems Problem Classification Problem Date Documented Da te Episodic/Chronic Abdominal pain (17 sources) Abdominal pain; Translations: [Unspecified abdominal pain] 01-27-2023 Episodic Biliary tract disease (12 sources) Polyp of gallbladder; Translations: [Cholesterolosis of gallbladder] 03-04-2023 Episodic Calculus of urinary tract (18 sources) Ureteric stone; Translations: [Calculus of ureter] 08-10-2020 Episodic Gastritis and duodenitis (16 sources) Gastritis; Translations: [Gastritis, unspecified, without bleeding] 01-27-2023 Episodic Malignant neoplasm without specification of site (9 sources) Malignant neoplastic disease; Translations: [Malignant (primary) neoplasm, unspecified] 06-19-2023 Chronic Comment on above: 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 Nausea and vomiting (18 sources) Nausea; Translations: [Nausea] 08-10-2020 Episodic Osteoarthritis (18 sources) Osteoarthritis of right hip joint; Translations: [Unilateral primary osteoarthritis, right hip] 08-09-2020 Chronic Osteoporosis (1 source) Age-related osteoporosis without current pathological fracture; Translations: [Age-related osteoporosis without current pathological fracture] Onset: 06-01-2025 Chronic Other connective tissue disease (9 sources) History of total hip arthroplasty; Translations: [Presence of unspecified artificial hip joint] 08-13-2023 Chronic Other connective tissue disease (9 sources) Ischial bursitis ; Translations: [Other bursitis of hip, right hip] 08-13-2023 Episodic Other gastrointestinal disorders (11 sources) Irritable bowel syndrome; Translations: [Irritable bowel syndrome without diarrhea] 12-01-2024 Chronic Other gastrointestinal disorders (1 source) Irritable bowel syndrome without diarrhea; Translations: [Irritable bowel syndrome, unspecified] Onset: 07-20-2025 Chronic Other non-traumatic joint disorders (9 sources) Hip pain; Translations: [Pain in right hip] 08-13-2023 Episodic Other non-traumatic joint disorders (1 source) Pain in left hip; Translations: [Pain in left hip] Onset: 05-03-2025 Episodic Other screening for suspected conditions (not mental disorders or infectious disease) (14 sources) Imaging of biliary tract abnormal; Translations: [Abnormal results of function studies of other organs and systems] 03-04-2023 Episodic Pancreatic disorders (not diabetes) (2 sources) Pancreatic insufficiency; Translations: [Other specified diseases of pancreas] 06-15-2025 Episodic Spondylosis; intervertebral disc disorders; other back problems (20 sources) Sacroiliitis, not elsewhere classified; Translations: [Arthritis of sacroiliac joint] 08-13-2023 Chronic Superficial injury; contusion (12 sources) Hematoma of left hip region; Translations: [Contusion of left hip, initial encounter] 04-06-2025 Episodic Unclassified (1 source) Low back pain, unspecified; Translations: [Low back pain, unspecified] Onset: 04-06-2025 Results Test Name Value Interpretation Reference Range Facility MR/PATGEOVANNIon 07-27-2025 MR/PAT.HAYDEE [facility] Medical Records Department [address] [place] [address] PAT - Anesthesia 07/27/25 1156 MR#: [id number] Acct: [id number] Name: CARMEN RODRIGES Rep #: [id number] : 1950 74 From: Bhavesh Chilel MD PCP: Dr. Leslie Santiago, DO Status:PRE [facility] Y Race: C Location: EN Pre-Assessment Diagnosis/Proposed Procedure Planned Operative Procedure(s): cscope Anesthesia History Anesthesia History - ms sql dba: Anesthesia History - ms sql dba Hx Hospitalization No 07/27/25 11:42 Any Problems With Anesthesia Yes: ponv 07/27/25 11:42 Cholinesterase deficiency No 07/27/25 11:42 You/Your Family Experience No 07/27/25 11:42 fever (hyperthermia) with Relationship Recent Exposure to Contagious No 04/17/23 07:18 Disease Does patient have nerve No 07/27/25 11:42 stimulator Patient instructed to have device shut off --Does patient have Pacemaker or ICD? When Was Last Pacemaker Check QUESTION #4 FULL TEXT: You/Your Family Experience fever (hyperthermia) with Anesthesia Last Oral Intake Last Oral intake: Last Oral Intake NPO since Meds taken in AM with sips of water? Meds patient instructed to take am of surgery PONV PONV - ms sql dba: PONV - ms sql dba Female Yes 07/27/25 11:42 HX of Motion Sickness Yes 07/27/25 11:42 HX of N/V After Surgery Yes 07/27/25 11:42 Non-Smoker Yes 07/27/25 11:42 Duration of Surgery greater No 07/27/25 11:42 than 60 minutes Number of Risk Factors 4 07/27/25 11:42 PONV Score Severe Risk 07/27/25 11:42 Height Weight Height Weight: Anesthesia: Height Weight Height 5 ft 6 in 04/06/25 12:54 Respiratory Assessment Respiratory Assessment - ms sql dba: Respiratory Tract Infection Hx - ms sql dba Hx Respiratory Tract Infection No 07/27/25 11:42 STOP Sleep Apnea STOP Sleep Apnea - ms sql dba: STOP Sleep Apnea - ms sql dba Hx Hypertension Yes: controlled with med 07/27/25 11:42 Hx Sleep Apnea Yes 07/27/25 11:42 CPAP Yes 07/27/25 11:42 BIPAP No 07/27/25 11:42 Do you snore loudly (louder than talking or can be heard Do you often feel tired/ fatigued/ sleepy during daytime? Has anyone observed you stop breathing during sleep? STOP Results Positive 07/27/25 11:42 QUESTION #5 FULL TEXT : Do you snore loudly (louder than talking or can be heard through closed doors)? 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 Specify any problems Hx of Preganancy in last 3 N/A 07/27/25 11:42 Months Nurse Filling Out Transfusion NBUCHER 07/27/25 11:42 Questions: Date: 07/27/25 07/27/25 11:42 Time: 11:43 07/27/25 11:42 Patient unable to answer at this time (ie. confused, unrespo /Reproductio n History /Reproductiv e History - ms sql dba: /Reproductiv e Hx- ms sql dba Hx Now No 07/27/25 11:42 Gestational Age (in weeks): EDC: Hx Hx Para Hx Section SAB No 07/27/25 11:42 [facility] Medical History (Updated 07/27/25 @ 11:49 by Minerva Gallegos) Leg cramps MVP (mitral valve prolapse) Pancreas (digestive gland) works poorly Wears glasses Cancer Depression Anxiety History of steroid therapy Arthritis DVT (deep venous thrombosis) Injury of back Injury of head and neck Seizures History of diverticulitis Gastric reflux Non-smoker CPAP (continuous positive airway pressure) dependence Sleep apnea History of edema Hypertension History of irregular heartbeat Home Medications ???Medication ???Instructions ???Recorded ???Last Taken ???Type buspirone 10 mg tablet 10 mg PO DAILY 07/05/20 Unknown Hi story hhxyttrwcjnr-Sy-dojc- minerals 1 ea PO DAILY 07/17/20 Unknown His tory amlodipine 2.5 mg tablet 2.5 mg PO DAILY 03/26/23 Unknown H istory acetaminophen 500 mg tablet 1,000 mg PO Q8 PRN pain 04/16/23 U nknown History duloxetine 60 mg capsule,delayed 60 mg PO DAILY 08/13/23 Unknown Hi story release tiza (more content not included)... Normal [facility] Abdomen/Pelvis WITH Contrast on 07-06-2025 Abdomen/Pelvis WITH Contrast [facility] Imaging Services [address] [place], [place] [address] Abdomen/Pelvis WITH Contrast MR#: [id number] Acct: [id number] Name: CARMEN RODRIGES Rep #: [id number] : 1950 F 74 From: [address] MD PCP: Dr. Leslie Santiago DO Status: REG CLI Study: Abdomen/Pelvis WITH Contrast Date of Exam: 10/30 Exam# [id number] Ordering Dr: Praveen Jacobs DO PROCEDURE: ABDOMEN/PELVIS WITH CONTRAST 07/06/2025 REASON FOR EXAM: ABDOMINAL PAIN AND DIARRHEA TECHNIQUE: Procedure Code: [id number] Modality: CT Procedure: ABDOMEN/PELVIS WITH CONTRAST Coronal and Sagittal reconstruction series were provided. CONTRAST: Isovue-300 VOLUME: 100 mL One or more dose reduction techniques were used (e.g., Automated exposure control, adjustment of the mA and/or kV according to patient size, use of iterative reconstruction technique. RADIATION DOSE SUMMARY: DLP: There is a small hiatal hernia. MGycm COMPARISON: CT abdomen and pelvis dated 06/23/2024. FINDINGS: The lung bases are clear. There is no focal consolidation effusion or pneumothorax. Scarring is noted in the lower lobes bilaterally. Visible Heart appears normal. There is no pericardial effusion. The liver enhances normally. There is a tiny cyst in the left liver lobe. Normal portal and hepatic veins are present. The gallbladder appears to have been surgically removed. There is mild dilatation of the intra and extrahepatic biliary tree with tapering of the distal CBD normally. This is expected following cholecystectomy. Pancreas is slightly atrophic. There is no significant dilatation of the main pancreatic duct. The adrenal glands, spleen and kidneys are within normal limits. There are small cysts in the right kidney. There is no stone or hydronephrosis. No solid mass seen. The aorta is normal. 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 No retroperitoneal lymphadenopathy seen. No overt retroperitoneal lymphadenopathy. There is no bowel obstruction. No free air. Diverticulosis of the colon is identified without active diverticulitis. The uterus is retroverted. There is no adnexal mass. The urinary bladder is normal. No pelvic lymphadenopathy or abnormal fluid collection seen. Osseous structures reveal status post right hip arthroplasty. There is no acute fracture noted. Multilevel facet arthropathy seen. Grade 1 anterolisthesis present of L3 on L4. There is no ascites or free air. CT/Abdomen/Pelvis WITH Contrast IMPRESSION: No bowel obstruction or free air. Diverticulosis without active diverticulitis. Small cortical renal cyst. No significant change since previous exam. Reading Location: [id number] CC: Dr. Leslie Santiago DO; Praveen Jacobs DO Tram Driver: Signed Normal [facility] Gastroenterology Visit Repor ton 06-15-2025 Gastroenterology Visit Report [facility]astroenterology [address] [place] [address] OFFICE VISIT Date of Service: 06/15/25 MR#: [id number] Acct: [id number] Name: RODRIGESCARMENKACIE CHRISTIANSON Rep #: [id number] : 1950 Provider: Praveen Jacobs DO Age/Sex: 74/F Location: [facility] Status: Signed Intake Vital Signs 04/17/23 07:18 04/06/25 12:54 Height 5 ft 6 in 5 ft 6 in Intake Visit Reasons: 6 M FU Allergies sulfamethoxazole (From Bactrim) Allergy (Mild, Verified 05/11/25 13:04) burning skin trimethoprim (From Bactrim) Allergy (Mild, Verified 05/11/25 13:04) burning skin thiopental (From Pentothal) Allergy (Verified 05/11/25 13:04) Anaphylaxis Medications ???Medication ???Instructions ???Recorded ???Confirmed ???Type buspirone 10 mg tablet 10 mg PO DAILY 07/05/20 06/15/25 H istory fqujkotgcznn-Bi-xbsd- minerals 1 ea PO DAILY 07/17/20 06/15/25 Hi story amlodipine 2.5 mg tablet 2.5 mg PO DAILY 03/26/23 06/15/25 History acetaminophen 500 mg tablet 1,000 mg PO Q8 PRN pain 04/16/23 0 06/15/25 History duloxetine 60 mg capsule,delayed mg PO 08/13/23 06/15/25 History release tizanidine 2 mg capsule 2 mg PO QHS 06/02/24 06/15/25 Hist ory daija enzymes PO 12/01/24 06/15/25 History omeprazole 20 mg capsule,delayed 20 mg PO BID 12/01/24 06/15/25 His tory release Have you fallen in the past year?: No Nurse's Note: Pt was scheduled for colonoscopy on 07.27.25 at the end of their appt today. Reviewed prep instructions and which medications to hold prior to procedure with pt in office. A paper copy of miralax prep instructions were given to pt. Pt denies any questions or concerns at this time. [facility] Medical History (Updated 06/15/25 @ 10:[address] Morton Friend, DO) Pancreas (digestive gland) works poorly Wears glasses Cancer Depression Anxiety History of steroid therapy Arthritis DVT (deep venous thrombosis) Injury of back Injury of head and neck Seizures History of diverticulitis Gastric reflux Non-smoker CPAP (continuous positive airway pressure) dependence Sleep apnea History of edema Hypertension History of irregular heartbeat Surgical History S/P laparoscopic cholecystectomy Hx of dilation and curettage Hx of surgical procedure Hx of colonoscopy Hx of total hip arthroplasty Hx of shoulder surgery Hx of appendectomy H/O foot surgery Social History Smoking Status: Never smoker HPI HPI Details: CARMEN RODRIGES, is a 74 F who presents to the office today for follow up. [facility] ED 01.27.23 with right flank pain extending into abdomen for several days and new onset N/V; loose stools with a different character abdominal pain present since July. PPI started. No acute finding and she was discharged home. ?CT abd/pel granulomatous calcifications of liver; ?cholelithiasis; colonic diverticulosis. ?KUB without acute/chronic finding. *[facility] established 01.31.23 mentions she is extremely depressed; unable to give clear history or explanation of symptoms. Since July 2022 she has been having loose stools and abdominal pain; additional difficulty with generally feeling unwell, stomach gurgling and belching. Prednisone and Lomotil has been the only this that is helpful. ?Biochemical CBC, ESR, CMP, LFT, KATHRIN comp ([employer]), ANCA, GAME, celiac, NELIDA without pertinent abnormality. ?LDH H255, CRP 5.94 ?Stool calprotectin, C.difficile, lactoferrin, O/P, giardia WNL. ? Elastase L141 Contact 02.10.23 with results. Recommend start of Creon. Patient assistance and voucher for samples mailed. US abd 02.21.23 hepatic measurement 16cm with fatty infiltration; gallbladder suggestion of two polyps [id number] and a soft tissue density at the fundus 1.9cmx1.4cm, MRI recommended. ?HIDA 02.22.23 EF 16% Contact 02.27.23 VM left to return call to discuss US and HIDA scan results. Referred to [facility]. Letter mailed 03.07.23 after several call attempts. [facility] established and underwent surgical operation. ?Laparoscopic 04.17.23 cholecystectomy, pathology chronic cholecystitis and cholesterolosis, fundic nodule consistent with Rokitansky-Aschoff sinuses OV 06.19.23 feels well since cholecystectomy. Reports she attempted Creon but reports she had diarrhea, shaking and terrible headaches. She is seeing her PCP who is managing her depression/anxiety. Continues to have gurgling of her abdomen and increased gas/flatulence. ?abd/pelvis CT 07.07.23 Status post cholecystectomy. Pancreatic atrophy. OV 06.02.24 pt reports that she (more content not included)... Normal [facility] Bone density reportOrdered B y: Papo Cunningham on 05-25-2025 Study report Skeletal system DXA [facility] Imaging Services [address] [place], [place] [id number] Dexa Bone Density Study MR#: [id number] Acct: [id number] Name: CARMEN RODRIGES Rep #: [id number] : 1950 F 74 From: Paolo Cunningham MD PCP: Dr. Leslie Santiago, Status: REG CLI Study:Dexa Bone Density Study Date of Exam: 05/25/25 Exam# [id number] Ordering Dr: Luciana Santiago sa, DO PROCEDURE: DEXA BONE DENSITY STUDY 05/25/2025 REASON FOR EXAM: F, age 74 y/o . Postmenopausal. TECHNIQUE: DEXA BONE DENSITY STUDY COMPARISON: None FINDINGS: BMD and T-SCORES Lumbar spine: 1.094 g/cm2, T-score 0.7 Levels: L1 through L4 Left femoral neck: 0.695 g/cm2, T-score -1.4 Femoral neck comparison data not recommended for monitoring change. Left total hip: 0.846 g/cm2, T-score -0.8 The World Health Organization has defined the following categories based on bonedensity: Normal bone density: T-score equal to or greater than -1.0 Osteopenia: T-score between -1.0 and -2.5 Osteoporosis: T-score equal to or less than -2.5 FRAX (or Comparable) Fracture Risk Assessment: 10 Year Probability of Fracture: Major Osteoporotic Fracture: 17% Hip Fracture: 3% (Note: FRAX is not to be reported in setting of normal range bone density, osteoporosis on DEXA, known history of osteoporosis, prior osteoporotic hip or vertebral fracture, or for any patient undergoing pharmacological treatment for bone loss.) The National Osteoporosis Foundation (NOF) recommends pharmacological treatment for patients with a FRAX 10-year risk of 3% or higher for a hip fracture, or 20% or higher for a major osteoporotic fracture, to prevent osteoporosis and reduce fracture risk. The patient does meet the pharmacological treatment recommendations for prevention of osteoporosis. BD/Dexa Bone Density Study IMPRESSION: OSTEOPENIA. Recommend follow-up as clinically warranted. Reading Location: [id number] CC: Dr. Leslie Santiago, ~ Tram Driver: Signed [facility] Dexa Bone Density Studyon Dexa Bone Density Study [facility] Imaging Services [address] [place] [address] Dexa Bone Density Study MR#: [id number] Acct: [id number] Name: CARMEN RODRIGES Rep #: [id number] : 1950 F 74 From: Papo luna MD PCP: Dr. Leslie Santiago DO Status: REG CLI Study: Dexa Bone Density Study Date of Exam: 05/25/25 Exam# [id number] Ordering Dr: Leslie Santiago DO PROCEDURE: DEXA BONE DENSITY STUDY 05/25/2025 REASON FOR EXAM: F, age 74 y/o . Postmenopausal. TECHNIQUE: DEXA BONE DENSITY STUDY COMPARISON: None FINDINGS: BMD and T-SCORES Lumbar spine: 1.094 g/cm2, T-score 0.7 Levels: L1 through L4 Left femoral neck: 0.695 g/cm2, T-score -1.4 Femoral neck comparison data not recommended for monitoring change. Left total hip: 0.846 g/cm2, T-score -0.8 The World Health Organization has defined the following categories based on bone density: Normal bone density: T-score equal to or greater than -1.0 Osteopenia: T-score between -1.0 and -2.5 Osteoporosis: T-score equal to or less than -2.5 FRAX (or Comparable) Fracture Risk Assessment: 10 Year Probability of Fracture: Major Osteoporotic Fracture: 17% Hip Fracture: 3% (Note: FRAX is not to be reported in setting of normal range bone density, osteoporosis on DEXA, known history of osteoporosis, prior osteoporotic hip or vertebral fracture, or for any patient undergoing pharmacological treatment for bone loss.) The National Osteoporosis Foundation (NOF) recommends pharmacological treatment for patients with a FRAX 10-year risk of 3% or higher for a hip fracture, or 20% or higher for a major osteoporotic fracture, to prevent osteoporosis and reduce fracture risk. The patient does meet the pharmacological treatment recommendations for prevention of osteoporosis. BD/Dexa Bone Density Study IMPRESSION: OSTEOPENIA. Recommend follow-up as clinically warranted. Reading Location: [id number] CC: Dr. Leslie Santiago DO Tram Driver: Signed Normal [facility] Orthopedic Visit Reporton Orthopedic Visit Report [facility] [address] [place] [address] [address] [place] [address] OFFICE VISIT Date of Service: 05/11/25 MR#: [id number] Acct: [id number] Name: CARMEN RODRIGES Rep #: [id number] : 1950 Provider: Dr. Gabino chauhan DO Age/Sex: 74/F Location: [facility] Status: Signed Intake Vital Signs 04/06/25 12:54 Height 5 ft 6 in Intake Visit Reasons: left hip Chief Complaint: Left hip pain Allergies sulfamethoxazole (From Bactrim) Allergy (Mild, Verified 05/11/25 13:04) burning skin trimethoprim (From Bactrim) Allergy (Mild, Verified 05/11/25 13:04) burning skin thiopental (From Pentothal) Allergy (Verified 05/11/25 13:04) Anaphylaxis Medications ???Medication ???Instructions ???Recorded ???Confirmed ???Type buspirone 10 mg tablet 10 mg PO DAILY 07/05/20 05/11/25 H istory fvbjdlfrdqdd-Ph-pilw- minerals 1 ea PO DAILY 07/17/20 05/11/25 Hi story amlodipine 2.5 mg tablet 2.5 mg PO DAILY 03/26/23 05/11/25 History acetaminophen 500 mg tablet 1,000 mg PO Q8 PRN pain 04/16/23 0 05/11/25 History duloxetine 60 mg capsule,delayed mg PO 08/13/23 05/11/25 History release tizanidine 2 mg capsule 2 mg PO QHS 06/02/24 05/11/25 Hist ory daija enzymes PO 02/26/25 08/06/25 History omeprazole 20 mg capsule,delayed 20 mg PO BID 12/01/24 05/11/25 His tory release Have you fallen in the past year?: Yes PFSH Medical History Pancreas (digestive gland) works poorly Wears glasses Cancer Depression Anxiety History of steroid therapy Arthritis DVT (deep venous thrombosis) Injury of back Injury of head and neck Seizures History of diverticulitis Gastric reflux Non-smoker CPAP (continuous positive airway pressure) dependence Sleep apnea History of edema Hypertension History of irregular heartbeat Surgical History S/P laparoscopic cholecystectomy Hx of dilation and curettage Hx of surgical procedure Hx of colonoscopy Hx of total hip arthroplasty Hx of shoulder surgery Hx of appendectomy H/O foot surgery Social History Smoking Status: Never smoker HPI left hip Details: This documentation accurately reflects the service provided and the decisions made by me, Dr. Gabino Sheikh, DO 05/11/25 0831. Part of today???s visit was documented by Kell FRIEDMAN, acting as scribe. CARMEN RODRIGES is a 74 year old F here today for CT review of the left hip. She states that she did have a lot of pain in the hip for 2 weeks but her pain is doing much better. She is not having much pain in the left should or left elbow but is having pain in her lower back and neck. She has been alternating between Tylenol and Ibuprofen for pain. 04/06/2025 visit:here today for left hip. Patient is having pain in the left hip. She states the the pain hurts mainly in the left glute and goes into the groin. Patient will get hip flare up on and off. It gets very painful at times.The pain is very severe, she can hardly walk up steps and down steps. This has been going on this past year. She thinks that she had a hard trip and tripped over something. Patient had a fall Friday night. She was walking the dog, and the dog was running after something, and she fell and landed on her left side. Patient hasn't had any surgeries on her left hip. Stepping side ways makes the pain worse. Moving side ways makes the pain worse. Walking up and down steps makes the pain worse. Patient hasn't had any injections, or physical therapy in the left hip. She has been putting ice on her hip, and it has been helping. Patient denies any diabetes, or blood thinners. Patient denies any smoking or drug use. Patient states that sometimes her feet get a little numb at times. 3 weeks ago she was having flare-ups and she was having pain in the groin and glute. It has since lightened up after icing and taking pain medications. She has had this before and it goes away after a few days. She has flare-ups every few months. She had a fall on Friday so she is tender over the bruise. She denies any pain down the leg. Plan:Obtained and reviewed left hip and lumbar spine x-rays today in the clinic. Explained that she does not have significant arthritis in the hip socket and it is hard for me to tell if she has a small fracture on the greater trochanter of the hip, she does have extensive bruising and tenderness in the lateral side of her hip. would recommend we obtain a CT scan to evaluate for a greater trochanteric fracture. 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 Recommend she take 600mg of Ibuprofen 3 times a day along with the Tylenol and this should help with her binta (more content not included)... Normal [facility] Extremity Lower without Cont raon 04-27-2025 Extremity Lower without Contra [facility] Imaging Services [address] [place] [address] Extremity Lower without Contra MR#: [id number] Acct: [id number] Name: CARMEN RODRIGES Rep #: [id number] : 1950 F 74 From: John Owusu MD PCP: Dr. Leslie Santiago DO Status: REG CLI Study: Extremity Lower without Contra Date of Exam: 0 04/27/25 Exam# [id number] Ordering Dr: Gabino Sheikh DO PROCEDURE: EXTREMITY LOWER WITHOUT CONTRA 04/27/2025 REASON FOR EXAM: RECENT FALL AND SEVERE PAIN TECHNIQUE: EXTREMITY LOWER WITHOUT CONTRA Coronal and Sagittal reconstruction series were provided. CONTRAST: None One or more dose reduction techniques were used (e.g., Automated exposure control, adjustment of the mA and/or kV according to patient size, use of iterative reconstruction technique). RADIATION DOSE SUMMARY: DLP: 657 mGycm COMPARISON: April 06, 2025 x-ray FINDINGS: Bones: There is no fracture or dislocation identified. There is mild osteoarthritis with marginal osteophytes and mild joint space narrowing. Soft tissue swelling is noted overlying the trochanteric region, incompletely visualized. The visualized pelvic bones appear intact. Degenerative changes are noted in the lumbar spine. There is diverticulosis visible in the distal colon. There is no free fluid in the included portion of the pelvis. Vascular calcifications are noted. CT/Extremity Lower without Contra IMPRESSION: There is mild osteoarthritis with marginal osteophytes and mild joint space narrowing. MRI or bone scan could be helpful for further evaluation if there is clinical suspicion of a nondisplaced fracture. Soft tissue swelling is noted overlying the trochanteric region, incompletely visualized. Reading Location: [facility] CC: Dr. Gabino Sheikh DO; Dr. Leslie Santiago DO Tram Driver: Signed Normal [facility] HIP, UNI W/ Pelvis 2-3 Views on 04-06-2025 HIP, UNI W/ Pelvis 2-3 Views [facility] Imaging Services [address] [place] [id number] HIP, UNI W/ Pelvis 2-3 Views MR#: [id number] Acct: [id number] Name: CARMEN RODRIGES Rep #: [id number] : 1950 F 74 From: Milind Fisher PCP: Dr. Leslie Santiago DO Status: DEP AMB Study: HIP, UNI W/ Pelvis 2-3 Views Date of Exam: 11/30 Exam# [id number] Ordering Dr: Gabino Sheikh DO PROCEDURE: HIP, UNI W/ PELVIS 2-3 VIEWS 04/06/2025 REASON FOR EXAM: RECENT FALL, PAIN TECHNIQUE: HIP, UNI W/ PELVIS 2-3 VIEWS COMPARISON: Right hip and pelvis series of 08/13/2023. RAD/HIP, UNI W/ Pelvis 2-3 Views IMPRESSION: Prominent degenerative changes of the visualized lower lumbar spine again noted. Mild sacroiliac joint degenerative changes are seen. A right total hip prosthesis is partially visualized, without apparent interval change or complication. Minimal left hip joint degenerative changes are noted, probably slightly progressed since the prior study of 2022. No evidence of femoral head osteonecrosis. No acute fracture or dislocation is seen. If clinical concern persists, short-term follow-up imaging may be obtained to rule out a currently occult fracture. . Reading Location: [facility] CC: Dr. Gabino Sheikh DO; Dr. Leslie Santiago DO Tram Driver: Signed Normal [facility] Lumbar Spine 2 or 3 Viewson 04-06-2025 Lumbar Spine 2 or 3 Views [facility] Imaging Services [address] [place] [id number] Lumbar Spine 2 or 3 Views MR#: [id number] Acct: [id number] Name: CARMEN RODRIGES Rep #: [id number] : 1950 F 74 From: Jc Pablo MD PCP: Dr. Leslie Santiago DO Status: DEP AMB Study: Lumbar Spine 2 or 3 Views Date of Exam: Exam# [id number] Ordering Dr: Gabino Sheikh DO PROCEDURE: LUMBAR SPINE 2 OR 3 VIEWS 04/06/2025 REASON FOR EXAM: RECENT FALL, LEFT HIP PAIN TECHNIQUE: LUMBAR SPINE 2 OR 3 VIEWS COMPARISON: None. FINDINGS: No evidence of acute fracture or dislocation. Zatroghy-cu-joencx degenerative changes of the visualized spine. Grade 1 anterolisthesis of L5 on S1. Levo scoliotic curvature. Partially visualized right hip arthroplasty. RAD/Lumbar Spine 2 or 3 Views IMPRESSION: As above. Reading Location: [id number] CC: Dr. Gabino Sheikh DO; Dr. Leslie Santiago DO Tram Driver: Signed Normal [facility] Orthopedic Visit Reporton Orthopedic Visit Report [facility] [address] [place] [address] OFFICE VISIT Date of Service: 04/06/25 MR#: [id number] Acct: [id number] Name: CARMEN RODRIGES Rep #: [id number] : 1950 Provider: Dr. Gabino chauhan, DO Age/Sex: 74/F Location: [facility] Status: Signed Intake Vital Signs 04/17/23 07:18 04/06/25 12:54 Height 5 ft 6 in 5 ft 6 in Intake Visit Reasons: LEFT HIP Chief Complaint: Left hip pain Accompanied by: Friend Is patient in pain?: Yes Pain scale (1-10): 4 Allergies sulfamethoxazole (From Bactrim) Allergy (Mild, Verified 04/06/25 12:57) burning skin trimethoprim (From Bactrim) Allergy (Mild, Verified 04/06/25 12:57) burning skin thiopental (From Pentothal) Allergy (Verified 04/06/25 12:57) Anaphylaxis Medications ???Medication ???Instructions ???Recorded ???Confirmed ???Type buspirone 10 mg tablet 10 mg PO DAILY 07/05/20 04/06/25 H istory qmqyxflubmcr-Zt-tgen- minerals 1 ea PO DAILY 07/17/20 04/06/25 Hi story amlodipine 2.5 mg tablet 2.5 mg PO DAILY 03/26/23 04/06/25 History acetaminophen 500 mg tablet 1,000 mg PO Q8 PRN pain 04/16/23 0 04/06/25 History duloxetine 60 mg capsule,delayed mg PO 08/13/23 04/06/25 History release tizanidine 2 mg capsule 2 mg PO QHS 06/02/24 04/06/25 Hist ory daija enzymes PO 12/01/24 04/06/25 History omeprazole 20 mg capsule,delayed 20 mg PO BID 12/01/24 04/06/25 His tory release Have you fallen in the past year?: No PFSH Medical History Pancreas (digestive gland) works poorly Wears glasses Cancer Depression Anxiety History of steroid therapy Arthritis DVT (deep venous thrombosis) Injury of back Injury of head and neck Seizures History of diverticulitis Gastric reflux Non-smoker CPAP (continuous positive airway pressure) dependence Sleep apnea History of edema Hypertension History of irregular heartbeat Surgical History S/P laparoscopic cholecystectomy Hx of dilation and curettage Hx of surgical procedure Hx of colonoscopy Hx of total hip arthroplasty Hx of shoulder surgery Hx of appendectomy H/O foot surgery Social History Smoking Status: Never smoker HPI LEFT HIP Details: This documentation accurately reflects the service provided and the decisions made by me, Dr. Gabino Sheikh, DO 04/06/25 08. Part of today???s visit was documented by Jessee Van MA, acting as scribe. CARMEN RODRIGES is a 74 year old F here today for left hip. Patient is having pain in the left hip. She states the the pain hurts mainly in the left glute and goes into the groin. Patient will get hip flare up on and off. It gets very painful at times.The pain is very severe, she can hardly walk up steps and down steps. This has been going on this past year. She thinks that she had a hard trip and tripped over something. Patient had a fall Friday night. She was walking the dog, and the dog was running after something, and she fell and landed on her left side. Patient hasn't had any surgeries on her left hip. Stepping side ways makes the pain worse. Moving side ways makes the pain worse. Walking up and down steps makes the pain worse. Patient hasn't had any injections, or physical therapy in the left hip. She has been putting ice on her hip, and it has been helping. Patient denies any diabetes, or blood thinners. Patient denies any smoking or drug use. Patient states that sometimes her feet get a little numb at times. 3 weeks ago she was having flare-ups and she was having pain in the groin and glute. It has since lightened up after icing and taking pain medications. She has had this before and it goes away after a few days. She has flare-ups every few months. She had a fall on Friday so she is tender over the bruise. She denies any pain down the leg. Ortho Exam General General: Yes no acute distress Neurologic: Yes alert and Yes oriented x3 Psychologic: Yes reasonable and appropriate Left Elbow ELBOW: abrasion over elbow no joint effusion full supination full pronation mild lacking of elbow flexion full EXT Left Shoulder Skin/Wound: Yes CDI, No ecchymosis, No erythema and No swelling SHOULDER: 75 forward flexion Left Hip Skin/Wound: Yes CDI, Yes Ecchymosis, No soft tissue swelling and Yes Erythema Hip: Present eccymosis, erythema and tender to palpate -; Absent soft tissue swelling HIP: ecchymosis with hematoma on lateral side of the hip that is very painful by 15 cm IR limited with 10 degrees, lateral sided hip pain with mild groin pain Supplemental Info 04/06/2025 x-ray lumbar spine: There is multileve (more content not included)... Normal [facility] Allergen, Food Profileon CLAM <0.10 Normal Class 0 [facility] Comment on above: Performed By: #### L 5500.0300, L5500.0550, L5500.0410 #### [facility] [address] [place], [address] CODFISH <0.10 Normal Class 0 [facility] Comment on above: Performed By: #### L 5500.0300, L5500.0550, L5500.0410 #### [facility] [address] [place], [address] CORN <0.10 Normal Class 0 [facility] Comment on above: Performed By: #### L 5500.0300, L5500.0550, L5500.0410 #### [facility] [address] [place], [address] EGG, WHITE <0.10 Normal Class 0 [facility] Comment on above: Performed By: #### L 5500.0300, L5500.0550, L5500.0410 #### [facility] [address] [place], [address] MILK (COW) <0.10 Normal Class 0 [facility] Comment on above: Performed By: #### L 5500.0300, L5500.0550, L5500.0410 #### [facility] [address] [place], [address] PEANUT <0.10 Normal Class 0 [facility] Comment on above: Performed By: #### L 5500.0300, L5500.0550, L5500.0410 #### [facility] [address] [place], [address] SCALLOP <0.10 Normal Class 0 [facility] Comment on above: Performed By: #### L 5500.0300, L5500.0550, L5500.0410 #### [facility] [address] [place], [address] SESAME SEED <0.10 Normal Class 0 [facility] Comment on above: Performed By: #### L 5500.0300, L5500.0550, L5500.0410 #### [facility] [address] [place], [address] SHRIMP <0.10 Normal Class 0 [facility] Comment on above: Performed By: #### L 5500.0300, L5500.0550, L5500.0410 #### [facility] [address] [place], [address] SOYBEAN <0.10 Normal Class 0 [facility] Comment on above: Performed By: #### L 5500.0300, L5500.0550, L5500.0410 #### [facility] [address] [place], [address] WALNUT,(Food) <0.10 Normal Class 0 [facility] Comment on above: Performed By: #### L 5500.0300, L5500.0550, L5500.0410 #### [facility] [address] [place], [address] WHEAT <0.10 Normal Class 0 [facility] Comment on above: Performed By: #### L 5500.0300, L5500.0550, L5500.0410 #### [facility] [address] [place], [address] Allergen, Mini-Raston 2024 A. ALTERNATA <0.10 Normal Class 0 [facility] Comment on above: Performed By: #### L 5500.0300, L5500.0550, L5500.0410 #### [facility] [address] [place], [address] BERMUDA GRASS <0.10 Normal Class 0 [facility] Comment on above: Performed By: #### L 5500.0300, L5500.0550, L5500.0410 #### [facility] [address] [place], [address] BLUE[place]ASS, [place] <0.10 Normal Class 0 [facility] Comment on above: Performed By: #### L 5500.0300, L5500.0550, L5500.0410 #### [facility] [address] [place], [address] CAT HAIR/DANDER <0.10 Normal Class 0 [facility] Comment on above: Performed By: #### L 5500.0300, L5500.0550, L5500.0410 #### [facility] [address] [place], [address] COMMENT Comment Normal . [facility] Comment on above: Result Comment: Ines olmstead of Specific IgE Class Description of Class ----- < 0.10 0 Negative 0.10 - 0.31 0/I Equivocal/Low 0.32 - 0.55 I Low 0.56 - 1.40 II Moderate 1.41 - 3.90 III High 3.91 - 19.00 IV Very High 19.01 - 100.00 V Very High >100.00 Very High Performed By: #### L 5500.0300, L5500.0550, L5500.0410 #### [facility] [address] [place], [address] D FARINAE MITE <0.10 Normal Class 0 [facility] Comment on above: Performed By: #### L 5500.0300, L5500.0550, L5500.0410 #### [facility] [address] [place], [address] D PTERONYSSINUS <0.10 Normal Class 0 [facility] Comment on above: Performed By: #### L 5500.0300, L5500.0550, L5500.0410 #### [facility] [address] [place], [address] DOG EPITHELIA <0.10 Normal Class 0 [facility] Comment on above: Performed By: #### L 5500.0300, L5500.0550, L5500.0410 #### [facility] [address] [place], [address] ELM,AMER WHITE <0.10 Normal Class 0 [facility] Comment on above: Performed By: #### L 5500.0300, L5500.0550, L5500.0410 #### [facility] [address] [place], [address] Mouse Urine <0.10 Normal Class 0 [facility] Comment on above: Result Comment: Perf ormed at: [address] [id number] Technical Training Manager: Brittanie Atkinson MD, Phone: [phone] Performed By: #### L 5500.0300, L5500.0550, L5500.0410 #### [facility] [address] [place], [address] OAK, WHITE <0.10 Normal Class 0 [facility] Comment on above: Performed By: #### L 5500.0300, L5500.0550, L5500.0410 #### [facility] [address] [place], [address] PLANTAIN,ENGLSH <0.10 Normal Class 0 [facility] Comment on above: Performed By: #### L 5500.0300, L5500.0550, L5500.0410 #### [facility] [address] [place], [address] RAGWEED SH/COM <0.10 Normal Class 0 [facility] Comment on above: Performed By: #### L 5500.0300, L5500.0550, L5500.0410 #### [facility] [address] [place], [address] L5500.0550on 12-06-2024 BEEF <0.10 Normal Class 0 [facility] Comment on above: Performed By: #### L 5500.0300, L5500.0550, L5500.0410 #### [facility] [address] [place], [address] CHOCOLATE <0.10 Normal Class 0 [facility] Comment on above: Performed By: #### L 5500.0300, L5500.0550, L5500.0410 #### [facility] [address] [place], [address] EGG, WHOLE <0.10 Normal Class 0 [facility] Comment on above: Performed By: #### L 5500.0300, L5500.0550, L5500.0410 #### [facility] [address] [place], [address] MUSSELS <0.10 Normal Class 0 [facility] Comment on above: Performed By: #### L 5500.0300, L5500.0550, L5500.0410 #### [facility] [address] [place], [place], [facility] PORK <0.10 Normal Class 0 [facility] Comment on above: Performed By: #### L 5500.0300, L5500.0550, L5500.0410 #### [facility] [address] [place], [place], [facility] SALMON <0.10 Normal Class 0 [facility] Comment on above: Performed By: #### L 5500.0300, L5500.0550, L5500.0410 #### [facility] [address] [place], [place], [facility] TUNA <0.10 Normal Class 0 [facility] Comment on above: Performed By: #### L 5500.0300, L5500.0550, L5500.0410 #### [facility] [address] [place] [address] A. alternata IgE Qn (S)Order ed By: Praveen Jacobs on 12-01-2024 Alternaria alternata IgE Allergen <0.10 kU/L Class 0 [facility] Cypriot house dust mite IgE Qn (S)Ordered By: Praveen Jacobs on 12-01-2024 Dermatophagoides farinae Allergen <0.10 kU/L Class 0 [facility] Beef IgE Qn (S)Ordered By: Josh richter Friend on 12-01-2024 Beef Allergen (RAST) <0.10 kU/L Class 0 [facility] Bermuda grass IgE Qn (S)Orde red By: Praveen Jacobs on 12-01-2024 Bermuda Grass Allergen <0.10 kU/L Class 0 [facility] Black Kent IgE Qn (S)Order ed By: Praveen Jacobs on 12-01-2024 Kent Allergen <0.10 kU/L Class 0 [facility] Cat dander IgE Qn (S)Ordered By: Praveen Jacobs on 12-01-2024 Cat Dander IgE Allergen <0.10 kU/L Class 0 [facility] Chocolate IgE Qn (S)Ordered By: Praveen Jacobs on 12-01-2024 Chocolate Allergen (RAST) <0.10 kU/L Class 0 [facility] Clam IgE Qn (S)Ordered By: Josh Jacobs on 12-01-2024 Clam Allergen (RAST) <0.10 kU/L Class 0 [facility] Codfish IgE Qn (S)Ordered By : Praveen Jacobs on 12-01-2024 Codfish Allergen (RAST) <0.10 kU/L Class 0 [facility] Fairplay IgE Qn (S)Ordered By: Josh Jacobs on 12-01-2024 Fairplay Allergen (RAST) <0.10 kU/L Class 0 [facility] Cow milk IgE Qn (S)Ordered B y: Praveen Jacobs on 12-01-2024 Cow's Milk Allergen <0.10 kU/L Class 0 [facility] Dog epithelium IgE Qn (S)Ord ered By: Praveen Jacobs on 12-01-2024 Dog Epithelia Allergen <0.10 kU/L Class 0 [facility] Egg white IgE Qn (S)Ordered By: Praveen Jacobs on 12-01-2024 Egg White Allergen (RAST) <0.10 kU/L Class 0 [facility] house dust mite IgE Qn (S)Ordered By: Praveen Jacobs on 12-01-2024 Dermatophagoides pteronyss Allergen <0.10 kU/L Class 0 [facility] Gastroenterology Visit Repor ton 12-01-2024 Gastroenterology Visit Report [facility] [address] [place] [address] OFFICE VISIT Date of Service: 12/01/24 MR#: [id number] Acct: [id number] Name: CARMEN RODRIGES Rep #: [id number] : 1950 Provider: Praveen Jacobs DO Age/Sex: 74/F [place] [facility] [place]: Signed Intake Vital Signs 04/17/23 07:18 Height 5 ft 6 in Intake Visit Reasons: 6 M FU Forensic Social Worker Required: No Is patient in pain?: No Allergies sulfamethoxazole (From Bactrim) Allergy (Mild, Verified 12/01/24 10:57) burning skin trimethoprim (From Bactrim) Allergy (Mild, Verified 12/01/24 10:57) burning skin thiopental (From Pentothal) Allergy (Verified 12/01/24 10:57) Anaphylaxis Medications ???Medication ???Instructions ???Recorded ???Confirmed ???Type buspirone 10 mg tablet 10 mg PO DAILY 07/05/20 12/01/24 H istory biofxeqylfwp-Gt-dohw- minerals 1 ea PO DAILY 07/17/20 12/01/24 Hi story amlodipine 2.5 mg tablet 2.5 mg PO DAILY 03/26/23 12/01/24 History acetaminophen 500 mg tablet 1,000 mg PO Q8 PRN pain 04/16/23 0 12/01/24 History duloxetine 60 mg capsule,delayed mg PO 08/13/23 12/01/24 History release tizanidine 2 mg capsule 2 mg PO QHS 06/02/24 12/01/24 Hist ory daija enzymes PO 12/01/24 History omeprazole 20 mg capsule,delayed 20 mg PO BID 12/01/24 12/01/24 His tory release Have you fallen in the past year?: No PFSH Medical History Anxiety Arthritis Cancer CPAP (continuous positive airway pressure) dependence Depression DVT (deep venous thrombosis) Gastric reflux History of diverticulitis History of edema History of irregular heartbeat History of steroid therapy Hypertension Injury of back Injury of head and neck Non-smoker Seizures Sleep apnea Wears glasses Surgical History H/O foot surgery Hx of appendectomy Hx of colonoscopy Hx of dilation and curettage Hx of shoulder surgery Hx of surgical procedure Hx of total hip arthroplasty S/P laparoscopic cholecystectomy Social History Smoking Status: Never smoker HPI HPI Details: CARMEN RODRIGES, is a 74 F who presents to the office today for [facility] ED 01.27.23 with right flank pain extending into abdomen for several days and new onset N/V; loose stools with a different character abdominal pain present since July. PPI started. No acute finding and she was discharged home. ?CT abd/pel granulomatous calcifications of liver; ?cholelithiasis; colonic diverticulosis. ?KUB without acute/chronic finding. *BGI established 01.31.23 mentions she is extremely depressed; unable to give clear history or explanation of symptoms. Since July 2022 she has been having loose stools and abdominal pain; additional difficulty with generally feeling unwell, stomach gurgling and belching. Prednisone and Lomotil has been the only this that is helpful. ?Biochemical CBC, ESR, CMP, LFT, KATHRIN comp ([employer] 1), ANCA, GAME, celiac, NELIDA without pertinent abnormality. ?LDH H255, CRP 5.94 ?Stool calprotectin, C.difficile, lactoferrin, O/P, giardia WNL. ? Elastase L141 Contact 02.10.23 with results. Recommend start of Creon. Patient assistance and voucher for samples mailed. US abd 02.21.23 hepatic measurement 16cm with fatty infiltration; gallbladder suggestion of two polyps [id number] and a soft tissue density at the fundus 1.9cmx1.4cm, MRI recommended. ?HIDA 02.22.23 EF 16% Contact 02.27.23 VM left to return call to discuss US and HIDA scan results. Referred to [facility]. Letter mailed 03.07.23 after several call attempts. [facility] established and underwent surgical operation. ?Laparoscopic 04.17.23 cholecystectomy, pathology chronic cholecystitis and cholesterolosis, fundic nodule consistent with Rokitansky-Aschoff sinuses OV 9. feels well since cholecystectomy. Reports she attempted Creon but reports she had diarrhea, shaking and terrible headaches. She is seeing her PCP who is managing her depression/anxiety. Continues to have gurgling of her abdomen and increased gas/flatulence. ?abd/pelvis CT 07.07.23 Status post cholecystectomy. Pancreatic atrophy. OV 8 pt reports that she is feeling well overall and denies GI symptoms of concern at this time. abd/pelvis 06.23.24 1. Limited study due to motion in the contrast portion of the images. 2. No CT evidence of any suspicious mass in the uncinate process, head, body and tail of the pancreas. Dedicated MR of the pancreas with and without contrast joey (more content not included)... Normal [facility] grass IgE Qn ( S)Ordered By: Praveen Jacobs on 12-01-2024 [facility] (March) Grass IgE Ab <0.10 kU/L Class 0 [facility] Mouse urine IgEOrdered By: Josh Jacobs on 12-01-2024 Mouse Urine Allergen IgE Antibody <0.10 kU/L Class 0 [facility] Comment on above: Performed at: [address] [id number] Director: Brittanie Atkinson MD, Phone: [phone] Peanut IgE Qn (S)Ordered By: Praveen Jacobs on 12-01-2024 Peanut Allergen (RAST) <0.10 kU/L Class 0 [facility] Pork IgE Qn (S)Ordered By: Josh Jacobs on 12-01-2024 Pork Allergen (RAST) <0.10 kU/L Class 0 [facility] [place] IgE Qn (S)Ordered By: Praveen Jaocbs on 12-01-2024 [place] Allergen IgE Antibody <0.10 kU/L Class 0 [facility] Scallop IgE serumOrdered By: Praveen Jacobs on 12-01-2024 Scallop Allergen <0.10 kU/L Class 0 [facility] Serum Italian plantain speci fic IgE antibody assayOrdered By: Praveen Jacobs on 12-01-2024 Italian Plantain Allergen (RAST) <0.10 kU/L Class 0 [facility] Serum common/short ragweed s pecific IgE antibody assayOrdered By: Praveen Jacobs on 12-01-2024 Common Ragweed (Short) Allergen <0.10 kU/L Class 0 [facility] Serum mussel specific IgE an tibody assayOrdered By: Praveen Jacobs on 12-01-2024 Mussel Allergen IgE Antibody <0.10 kU/L Class 0 [facility] Serum shrimp specific IgE an tibody assayOrdered By: Praveen Jacobs on 12-01-2024 Shrimp Allergen <0.10 kU/L Class 0 [facility] Service comment (Unsp spec) [Interp]Ordered By: Praveen Jacobs on 12-01-2024 RAST Comment Comment . [facility] Comment on above: Levels of Specific I gE Class Description of Class ----- < 0.10 0 Negative 0.10 - 0.31 0/I Equivocal/Low 0.32 - 0.55 I Low 0.56 - 1.40 II Moderate 1.41 - 3.90 III High 3.91 - 19.00 IV Very High 19.01 - 100.00 V Very High >100.00 Very High Sesame seed IgE serumOrdered By: Praveen Jacobs on 12-01-2024 Sesame Seed Allergen IgE Antibody <0.10 kU/L Class 0 [facility] Soybean IgE Qn (S)Ordered By : Praveen Jacobs on 12-01-2024 Soybean Allergen (RAST) <0.10 kU/L Class 0 [facility] Tuna IgE Qn (S)Ordered By: Josh Jacobs on 12-01-2024 Tuna Allergen (RAST) <0.10 kU/L Class 0 [facility] Wheat IgE Qn (S)Ordered By: Praveen Jacobs on 12-01-2024 Wheat Allergen (RAST) <0.10 kU/L Class 0 [facility] White Elm IgE Qn (S)Ordered By: Praveen Jacobs on 12-01-2024 White Elm Allergen <0.10 kU/L Class 0 [facility] Peosta IgE Qn (S)Ordered By: Praveen Jacobs on 12-01-2024 Peosta Tree Allergen <0.10 kU/L Class 0 [facility] Whole Egg IgE Qn (S)Ordered By: Praveen Jacobs on 12-01-2024 Egg Whole Allergen <0.10 kU/L Class 0 [facility] No Panel InformationOrdered By: Praveen Jacobs on 02-07-2023 Giardia Antigen (CHAMP) [facility] Ova and parasitesOrdered By: Praveen Jacobs on 02-07-2023 Ova and parasites identified LM Nom (Unsp spec) [facility] Clostridium difficile detect ion by polymerase chain reactionOrdered By: Praveen Jacobs on 02-03-2023 C. difficile DNA KALINA+probe Ql (Unsp spec) [facility] No Panel InformationOrdered By: Praveen Jacobs on 02-03-2023 Giardia Antigen (CHAMP) [facility] Stool Calprotectin 65 ug/g 0-120 [facility] Comment on above: Concentration Interp retation Follow-Up<16 - 50 ug/g Normal None>50 -120 ug/g Borderline Re-evaluate in 4-6 weeks >120 ug/g Abnormal Repeat as clinically indicatedPerformed at: - [facility] [id number] Director: Brittanie Atkinson MD, Phone: [phone] Stool Pancreatic Elastase 141 >200 [facility] Comment on above: Result Units: ug Edda st./g Severe Pancreatic Insufficiency: <100 Moderate Pancreatic Insufficiency: 100 - 200 Normal: >200Performed at: 99inn.cc - [facility] [id number] Director: Brittanie Atkinson MD, Phone: [phone] Ova and parasitesOrdered By: Praveen Jacobs on 02-03-2023 Ova and parasites identified LM Nom (Unsp spec) [facility] Stool lactoferrin detection by immunoassayOrdered By: Praveen Jacobs on 02-03-2023 Lactoferrin IA Ql (Stl) [facility] Absolute lymphocyte countOrd ered By: Praveen Jacobs on 01-31-2023 Lymphocytes Auto (Unsp spec) [#/Vol] 1.95 10*3/uL 0.83-4.51 [facility] Albumin Elph [Mass/Vol]Order ed By: Praveen Jacobs on 01-31-2023 Albumin [Mass/Vol] 4.0 g/dL 2.9-4.4 [facility] Atypical perinuclear antineu trophil cytoplasmic antibodies measurementOrdered By: Praveen Jacobs on 01-31-2023 Neutrophil cytoplasmic Ab.perinuclear.atypical IF (S) [Titer] <1:20 titer Neg:<1:20 [facility] Comment on above: The atypical pANCA p attern has been observed in asignificant percentage of patients with ulcerative colitis,primary sclerosing cholangitis and autoimmune hepatitis.Performed at: [facility] [employer] [id number] Director: Isac Scanlon PhD, Phone: [phone] at: [facility] [id number] Director: Brittanie Atkinson MD, Phone: [phone] Basophil percentageOrdered B y: Praveen Jacobs on 01-31-2023 Basophil percentage < 0.2 AI 0.0-0.9 [facility] Basophils/100 WBC (Bld) 0.6 % 0-1 [facility] Bilirubin [Mass/Vol] 0.30 mg/dL 0.20-1.00 [facility] Comment on above: For patients on eltr ombopag therapy, use of Dimension [place] TBIL is not recommended. Chloride [Moles/Vol] 105 mmol/L 98-107 [facility] Eosinophils/100 WBC (Bld) 1.4 % 0-5 [facility] Glucose [Mass/Vol] 92 mg/dL 74-106 [facility] LDH [Catalytic activity/Vol] 255 U/L 84-246 [facility] Neutrophils (Bld) [#/Vol] 4.9 10*3/uL 2.0-7.7 [facility] Neutrophils/100 WBC (Bld) 63.5 % 47-70 [facility] Potassium [Moles/Vol] 4.2 mmol/L 3.5-5.1 [facility] Protein [Mass/Vol] 8.3 g/dL 6.4-8.2 [facility] Sodium [Moles/Vol] 136 mmol/L 136-145 [facility] WBC (Bld) [#/Vol] 7.8 10*3/uL 4.4-11.0 [facility] Blood erythrocytes count (nu mber/volume)Ordered By: Praveen Jacobs on 01-31-2023 RBC (Bld) [#/Vol] 5.05 10*6/uL 4.2-5.4 [facility] Blood hemoglobin measurement (mass/volume)Ordered By: Praveen Jacobs on 01-31-2023 Hemoglobin (Bld) [Mass/Vol] 15.6 g/dL 12.0-15. 0 [facility] Blood lymphocytes/100 leukoc ytesOrdered By: Praveen Jacobs on 01-31-2023 Lymphocytes/100 WBC (Bld) 25.1 % 19-41 [facility] Blood monocytes/100 leukocyt esOrdered By: Praveen Jacobs on 01-31-2023 Monocytes/100 WBC (Bld) 8.9 % 0-10 [facility] Blood platelet mean volumeOr dered By: Praveen Jacobs on 01-31-2023 Platelet mean volume (Bld) [Entitic vol] 9.5 fL 6.2-12.0 [facility] Determination of erythrocyte mean corpuscular volume (MCV)Ordered By: Praveen Jacobs on 01-31-2023 MCV (RBC) [Entitic vol] 93.5 fL 81-99 [facility] Erythrocyte sedimentation ra teOrdered By: Praveen Jacobs on 01-31-2023 ESR (Bld) [Velocity] 12 mm/h 0-30 [facility] Hematocrit Auto (Bld) [Volum e fraction]Ordered By: Praveen Jacobs on 01-31-2023 Hematocrit (Bld) [Volume fraction] 47.2 % 37-47 [facility] Interpretation of serum or p lasma protein pattern by immunofixation (narrative resultOrdered By: Praveen Jacobs on 01-31-2023 Protein Fractions Immunofixation Dharmesh [Interp] See comment [facility] Comment on above: Result: Not Observed Laboratory - Chemistry and C hemistry - challengeOrdered By: Praveen Jacobs on 01-31-2023 ALP [Catalytic activity/Vol] 76 U/L 45-117 [facility] ALT [Catalytic activity/Vol] 32 U/L 13-56 [facility] CO2 [Moles/Vol] 28.0 mmol/L 21.0-32.0 [facility] Urea nitrogen/Creatinine [Mass ratio] 24.9 mg/mg 10-20 [facility] - Hematology and Cell countsOrdered By: Praveen Jacobs on 01-31-2023 Erythrocyte distribution width (RBC) [Entitic vol] 43.4 fL 35.1-43.9 [facility] Erythrocyte distribution width (RBC) [Ratio] 12.7 % 11.6-14.6 [facility] Immature granulocytes/100 WBC (Bld) 0.500 % 0.0-0.9 [facility] Comment on above: IG% - Immature Granu locytes (promyelocytes, myelocytes and metamyelocytes) > 1% indicates that a LEFT SHIFT is Present. MCH (RBC) [Entitic mass] 30.9 pg 27.0-32.0 [facility] Nucleated RBC/100 WBC (Bld) [Ratio] 0 % 0-5 [facility] MCHC Auto (RBC) [Mass/Vol]Or dered By: Praveen Jacobs on 01-31-2023 MCHC (RBC) [Mass/Vol] 33.1 g/dL 32-36 [facility] No Panel InformationOrdered By: Praveen Jacobs on 01-31-2023 Addendum Document Comment . [facility] Comment on above: Protein electrophore sis scan will follow via computer,mail, or contact assembler delivery. Centromere B Antibody <0.2 AI 0.0-0.9 [facility] Endomysial IgA Antibody Negative Negative [facility] Estimated GFR (MDRD) Amer 95 mL/min >60 [facility] Comment on above: GFR Calc Estimated GFR (MDRD) Non-Af Amer 79 mL/min >60 [facility] Comment on above: Non- GFR Calc Immunoglobulin E 29 IU/mL 6-495 [facility] [employer] Antibody 1.0 AI 0.0-0.9 [facility] Platelets bldOrdered By: Christiano Jacobs on 01-31-2023 Platelets (Bld) [#/Vol] 238 10*3/uL 150-450 [facility] Serum DNA double strand anti body assay (units/volume)Ordered By: Praveen Jacobs on 01-31-2023 DNA double strand Ab Qn (S) 1 [IU]/mL 0-9 [facility] Comment on above: Negative <5 Equivoca l 5 - 9 Positive >9 Serum Regina-1 antibody assay (u nits/volume)Ordered By: Praveen Jacobs on 01-31-2023 Regina-1 extractable nuclear Ab Qn (S) <0.2 AI 0.0-0.9 [facility] Serum Scl-70 extractable nuc lear antibody assay (units/volume)Ordered By: Praveen Jacobs on 01-31-2023 SCL-70 extractable nuclear Ab Qn (S) <0.2 AI 0.0-0.9 [facility] Serum Winters extractable nucl ear antibody detectionOrdered By: Praveen Jacobs on 01-31-2023 Winters extractable nuclear Ab Ql (S) 0.3 AI 0.0-0.9 [facility] Serum [id number] measu rement by electrophoresisOrdered By: Praveen Jacobs on 01-31-2023 Alpha 1 globulin Elph [Mass/Vol] 0.3 g/dL 0.0-0.4 [facility] Alpha 1 globulin Elph [Mass/Vol] 0.8 g/dL 0.4-1.0 [facility] Serum classic neutrophil cyt oplasmic antibody assay (units/volume)Ordered By: Praveen Jacobs on 01-31-2023 Neutrophil cytoplasmic Ab.classic Qn (S) <1:20 titer Neg:<1:20 [facility] Serum globulin measurement ( mass/volume)Ordered By: Praveen Jacobs on 01-31-2023 Globulin (S) [Mass/Vol] 3.6 g/dL 2.2-3.9 [facility] Serum or plasma C reactive p rotein measurement (mass/volume)Ordered By: Praveen Jacobs on 01-31-2023 CRP [Mass/Vol] 5.94 mg/L 0.0-3.0 [facility] Comment on above: C-Reactive Protein ( CRP) provides useful information for thediagnosis, therapy and monitoring of inflammatory processesand associated diseases. For the evaluation of Relative Riskfor Cardiovascular Disease, a High Sensitivity CRP (HSCRP)should be ordered. Serum or plasma IgA measurem ent (mass/volume)Ordered By: Praveen Jacobs on 01-31-2023 IgA [Mass/Vol] 250 mg/dL 64-422 [facility] Serum or plasma IgG measurem ent (mass/volume)Ordered By: Praveenemanuel Jacobs on 01-31-2023 IgG [Mass/Vol] 1600 mg/dL [phone] [facility] Serum or plasma IgM measurem ent (mass/volume)Ordered By: Praveen Jacobs on 01-31-2023 IgM [Mass/Vol] 91 mg/dL 26-217 [facility] Serum or plasma albumin sean urement (mass/volume)Ordered By: Praveen Jacobs on 01-31-2023 Albumin [Mass/Vol] 3.8 g/dL 3.2-5.0 [facility] Serum or plasma albumin/glob ulin mass ratioOrdered By: Praveen Jacobs on 01-31-2023 Albumin/Globulin [Mass ratio] 0.8 {ratio} 0.9-2.4 [facility] Serum or plasma beta globuli n measurement by electrophoresis (mass/volume)Ordered By: Praveen Jacobs on 01-31-2023 Beta globulin Elph [Mass/Vol] 1.0 g/dL 0.7-1.3 [facility] Serum or plasma calcium sean urement (mass/volume)Ordered By: Praveen Jacobs on 01-31-2023 Calcium [Mass/Vol] 9.0 mg/dL 8.5-10.1 [facility] Serum or plasma creatinine m easurement (mass/volume)Ordered By: Praveen Jacobs on 01-31-2023 Creatinine [Mass/Vol] 0.76 mg/dL 0.55-1.02 [facility] Comment on above: The validity of the calculated GFR & GFRAA in patients over 70 years has not been determined. Clinical correlation is essential. Serum or plasma gamma globul in measurement by electrophoresis (mass/volume)Ordered By: Praveen Jacobs on 01-31-2023 Gamma globulin Elph [Mass/Vol] 1.4 g/dL 0.4-1.8 [facility] Serum or plasma immunoelectr ophoresis interpretation (nominal result)Ordered By: Praveen Jacobs on 01-31-2023 Interpretation IEP [Interp] Comment . [facility] Comment on above: No monoclonality det ected. Serum or plasma urea nitroge n measurement (mass/volume)Ordered By: Praveen Jacobs on 01-31-2023 Urea nitrogen [Mass/Vol] 19 mg/dL 7-18 [facility] Serum perinuclear neutrophil cytoplasmic antibody titer by immunofluorescenceOrdered By: Praveen Jacobs on 01-31-2023 Neutrophil cytoplasmic Ab.perinuclear IF (S) [Titer] <1:20 titer Neg:<1:20 [facility] Comment on above: The presence of posi tive fluorescence exhibiting P-ANCA orC-ANCA patterns alone is not specific for the diagnosis ofWegener's Granulomatosis (WG) or microscopic polyangiitis.Decisions about treatment should not be based solely onANCA IFA results. The International ANCA Group Consensusrecommends follow up testing of positive sera with both VA-3 and MPO-ANCA enzyme immunoassays. As many as 5% serumsamples are positive only by EIA. Ref. AM J Clin Octtcc2077;111:507-513. Serum tissue transglutaminas e IgA antibody assay (units/volume)Ordered By: Praveen Jacobs on 01-31-2023 tTG IgA Qn (S) <2 U/mL 0-3 [facility] Comment on above: Negative 0 - 3 Weak Positive 4 - 10 Positive >10 Tissue Transglutaminase (tTG) has been identified as the endomysial antigen. Studies have demonstr- ated that endomysial IgA antibodies have over 99% specificity for gluten sensitive enteropathy. Thin prep Papanicolaou smear with manual screeningOrdered By: Praveen Jacobs on 01-31-2023 Thin prep Papanicolaou smear with manual screening 32 U/L 15-37 [facility] Thin prep Papanicolaou smear with manual screening 3 5-15 [facility] Thin prep Papanicolaou smear with manual screening 1.2 0.7-1.7 [facility] Total protein bloodOrdered B y: Praveenemanuel Jacobs on 01-31-2023 Protein [Mass/Vol] 7.6 g/dL 6.0-8.5 [facility] Culture, urineOrdered By: Dr Edith Santiago on 01-29-2023 Bacteria identified Cx Nom (U) Positive [facility] Culture, urineOrdered By: Luciana Santiago on 01-28-2023 Bacteria identified Cx Nom (U) Positive [facility] Absolute lymphocyte countOrd ered By: Dr. Santiago on 01-27-2023 Lymphocytes Auto (Unsp spec) [#/Vol] 2.27 10*3/uL 0.83-4.51 [facility] Amorphous sediment detection in urine sediment by light microscopyOrdered By: Dr. Craig on 01-27-2023 Amorphous sediment LM Ql (Urine sed) 1+ PHOS [facility] Basophil percentageOrdered B y: Dr. Craig on 01-27-2023 Basophil percentage 0 SEEN /hpf 0-5 [facility] Basophil percentageOrdered B y: Dr. Santiago on 01-27-2023 Basophils/100 WBC (Bld) 0.5 % 0-1 [facility] Bilirubin [Mass/Vol] 0.40 mg/dL 0.20-1.00 [facility] Comment on above: For patients on eltr ombopag therapy, use of Dimension [place] TBIL is not recommended. Chloride [Moles/Vol] 105 mmol/L 98-107 [facility] Eosinophils/100 WBC (Bld) 0.9 % 0-5 [facility] Glucose [Mass/Vol] 103 mg/dL 74-106 [facility] Comment on above: Fasting Glucose resu lt from 100 to 125 mg/dL suggests IMPAIRED HOMEOSTASIS per A.D.A. criteria. Neutrophils (Bld) [#/Vol] 6.4 10*3/uL 2.0-7.7 [facility] Neutrophils/100 WBC (Bld) 66.0 % 47-70 [facility] Potassium [Moles/Vol] 3.7 mmol/L 3.5-5.1 [facility] Protein [Mass/Vol] 8.3 g/dL 6.4-8.2 [facility] Sodium [Moles/Vol] 137 mmol/L 136-145 [facility] WBC (Bld) [#/Vol] 9.7 10*3/uL 4.4-11.0 [facility] Bilirubin Test strip Ql (U)O rdered By: Dr. Craig on 01-27-2023 Bilirubin Ql (U) Negative Negative [facility] Bilirubin Test strip Ql (U)O rdered By: Dr. Santiago on 01-27-2023 Bilirubin Ql (U) Negative Negative [facility] Blood erythrocytes count (nu mber/volume)Ordered By: Dr. Santiago on 01-27-2023 RBC (Bld) [#/Vol] 4.96 10*6/uL 4.2-5.4 [facility] Blood hemoglobin measurement (mass/volume)Ordered By: Dr. Santiago on 01-27-2023 Hemoglobin (Bld) [Mass/Vol] 15.3 g/dL 12.0-15. 0 [facility] Blood lymphocytes/100 leukoc ytesOrdered By: Dr. Santiago on 01-27-2023 Lymphocytes/100 WBC (Bld) 23.5 % 19-41 [facility] Blood monocytes/100 leukocyt esOrdered By: Dr. Santiago on 01-27-2023 Monocytes/100 WBC (Bld) 7.7 % 0-10 [facility] Blood platelet mean volumeOr dered By: Dr. Santiago on 01-27-2023 Platelet mean volume (Bld) [Entitic vol] 9.6 fL 6.2-12.0 [facility] Determination of erythrocyte mean corpuscular volume (MCV)Ordered By: Dr. Santiago on 01-27-2023 MCV (RBC) [Entitic vol] 93.3 fL 81-99 [facility] Erythrocyte sedimentation ra teOrdered By: Dr. Santiago on 01-27-2023 ESR (Bld) [Velocity] 18 mm/h 0-30 [facility] Hematocrit Auto (Bld) [Volum e fraction]Ordered By: Dr. Santiago on 01-27-2023 Hematocrit (Bld) [Volume fraction] 46.3 % 37-47 [facility] Ketones Test strip Ql (U)Ord ered By: Dr. Craig on 01-27-2023 Ketones Ql (U) Negative Negative [facility] Ketones Test strip Ql (U)Ord ered By: Dr. Santiago on 01-27-2023 Ketones Ql (U) Negative Negative [facility] Laboratory - Chemistry and C hemistry - challengeOrdered By: Dr. Craig on 01-27-2023 Lipase [Catalytic activity/Vol] 41 U/L 13-75 [facility] Comment on above: Please note:LIPASE r evised reference range effective 23. New Lipase methodology. Expected to produce lower values than the previous assay method. NEW Reference Range: 13 - 75 U/L Laboratory - Chemistry and C hemistry - challengeOrdered By: Dr. Santiago on 01-27-2023 ALP [Catalytic activity/Vol] 80 U/L 45-117 [facility] ALT [Catalytic activity/Vol] 29 U/L 13-56 [facility] CO2 [Moles/Vol] 30.0 mmol/L 21.0-32.0 [facility] Globulin (S) [Mass/Vol] 4.4 g/dL 2.2-4.2 [facility] Urea nitrogen/Creatinine [Mass ratio] 24.8 mg/mg 10-20 [facility] Laboratory - Hematology and Cell countsOrdered By: Dr. Santiago on 01-27-2023 Erythrocyte distribution width (RBC) [Entitic vol] 43.5 fL 35.1-43.9 [facility] Erythrocyte distribution width (RBC) [Ratio] 12.7 % 11.6-14.6 [facility] Immature granulocytes/100 WBC (Bld) 1.400 % 0.0-0.9 [facility] Comment on above: IG% - Immature Granu locytes (promyelocytes, myelocytes and metamyelocytes) > 1% indicates that a LEFT SHIFT is Present. MCH (RBC) [Entitic mass] 30.8 pg 27.0-32.0 [facility] Nucleated RBC/100 WBC (Bld) [Ratio] 0 % 0-5 [facility] MCHC Auto (RBC) [Mass/Vol]Or dered By: Dr. Santiago on 01-27-2023 MCHC (RBC) [Mass/Vol] 33.0 g/dL 32-36 [facility] Mucus LM Ql (Urine sed)Order ed By: Dr. Craig on 01-27-2023 Mucus Ql (Urine sed) 0 SEEN /hpf [facility] Nitrite Test strip Ql (U)Ord ered By: Dr. Craig on 01-27-2023 Nitrite Ql (U) Negative Negative [facility] Nitrite Test strip Ql (U)Ord ered By: Dr. Santiago on 01-27-2023 Nitrite Ql (U) Negative Negative [facility] No Panel InformationOrdered By: Dr. Santiago on 01-27-2023 Estimated GFR (MDRD) Amer 69 mL/min >60 [facility] Comment on above: GFR Calc Estimated GFR (MDRD) Non-Af Amer 57 mL/min >60 [facility] Comment on above: Non- GFR Calc Platelets bldOrdered By: Dr. Santiago on 01-27-2023 Platelets (Bld) [#/Vol] 262 10*3/uL 150-450 [facility] Protein Test strip Ql (U)Ord ered By: Dr. Craig on 01-27-2023 Protein Ql (U) Negative Negative [facility] Protein Test strip Ql (U)Ord ered By: Dr. Santiago on 01-27-2023 Protein Ql (U) 15 mg/dl Negative [facility] Serum or plasma C reactive p rotein measurement (mass/volume)Ordered By: Dr. Santiago on 01-27-2023 CRP [Mass/Vol] mg/L 0.0-3.0 [facility] Comment on above: C-Reactive Protein ( CRP) provides useful information for thediagnosis, therapy and monitoring of inflammatory processesand associated diseases. For the evaluation of Relative Riskfor Cardiovascular Disease, a High Sensitivity CRP (HSCRP)should be ordered. Serum or plasma albumin sean urement (mass/volume)Ordered By: Dr. Santiago on 01-27-2023 Albumin [Mass/Vol] 3.9 g/dL 3.2-5.0 [facility] Serum or plasma albumin/glob ulin mass ratioOrdered By: Dr. Santiago on 01-27-2023 Albumin/Globulin [Mass ratio] 0.9 {ratio} 0.9-2.4 [facility] Serum or plasma calcium sean urement (mass/volume)Ordered By: Dr. Santiago on 01-27-2023 Calcium [Mass/Vol] 9.6 mg/dL 8.5-10.1 [facility] Serum or plasma creatinine m easurement (mass/volume)Ordered By: Dr. Santiago on 01-27-2023 Creatinine [Mass/Vol] 1.01 mg/dL 0.55-1.02 [facility] Comment on above: The validity of the calculated GFR & GFRAA in patients over 70 years has not been determined. Clinical correlation is essential. Serum or plasma urea nitroge n measurement (mass/volume)Ordered By: Dr. Santiago on 01-27-2023 Urea nitrogen [Mass/Vol] 25 mg/dL 7-18 [facility] Squamous epithelial cells de tection in urine sediment by light microscopyOrdered By: Dr. Craig on 01-27-2023 Epithelial cells.squamous LM Ql (Urine sed) 0-5 SEEN /hpf 5-10 [facility] Thin prep Papanicolaou smear with manual screeningOrdered By: Dr. Santiago on 01-27-2023 Thin prep Papanicolaou smear with manual screening 24 U/L 15-37 [facility] Thin prep Papanicolaou smear with manual screening 2 5-15 [facility] Urine blood detectionOrdered By: Dr. Craig on 01-27-2023 RBC Ql (U) Negative Negative [facility] RBC Ql (U) 0 SEEN /hpf 0-5 [facility] Urine blood detectionOrdered By: Dr. Santiago on 01-27-2023 RBC Ql (U) 25 /ul Negative [facility] Urine clarityOrdered By: Dr. Craig on 01-27-2023 Clarity (U) Sl. Cloudy Clear [facility] Urine clarityOrdered By: Dr. Santiago on 01-27-2023 Clarity (U) Sl. Cloudy Clear [facility] Urine color determinationOrd ered By: Dr. Craig on 01-27-2023 Color (U) Yellow Yellow [facility] Urine color determinationOrd ered By: Dr. Santiago on 01-27-2023 Color (U) Yellow Yellow [facility] Urine glucose detectionOrder ed By: Dr. Craig on 01-27-2023 Glucose Ql (U) Normal mg/dl Normal [facility] Urine glucose detectionOrder ed By: Dr. Santiago on 01-27-2023 Glucose Ql (U) Normal mg/dl Normal [facility] Urine leukocyte esterase det ection by dipstickOrdered By: Dr. Craig on 01-27-2023 Leukocyte esterase Test strip Ql (U) Negative Negative [facility] Urine leukocyte esterase det ection by dipstickOrdered By: Dr. Santiago on 01-27-2023 Leukocyte esterase Test strip Ql (U) 25 /ul Negative [facility] Urine pHOrdered By: Dr. Carrie damon on 01-27-2023 pH (U) 7.0 [pH] 5.0 - 8.0 [facility] Urine pHOrdered By: Dr. Adela champino on 01-27-2023 pH (U) 5.0 [pH] 5.0 - 8.0 [facility] Urine sediment bacteria coun t by microscopy (number/high power field)Ordered By: Dr. Craig on 01-27-2023 Bacteria LM.HPF (Urine sed) [#/Area] 0 /[HPF] None Seen [facility] Urine specific gravity measu rementOrdered By: Dr. Craig on 01-27-2023 Specific gravity (U) [Rel density] 1.010 1.002-1.030 [facility] Urine specific gravity measu rementOrdered By: Dr. Santiago on 01-27-2023 Specific gravity (U) [Rel density] 1.030 1.002-1.030 [facility] Urobilinogen Auto test strip Ql (U)Ordered By: Dr. Craig on 01-27-2023 Urobilinogen Ql (U) Normal mg/dl Normal [facility] Urobilinogen Auto test strip Ql (U)Ordered By: Dr. Santiago on 01-27-2023 Urobilinogen Ql (U) Normal mg/dl Normal [facility] Absolute lymphocyte counton 11-07-2022 Lymphocytes Auto (Unsp spec) [#/Vol] 0.99 10*3/uL 0.83-4.51 [facility] Work Phone: Basophil percentageon 2021 Basophils/100 WBC (Bld) 0.4 % 0-1 [facility] Work Phone: Bilirubin [Mass/Vol] 0.40 mg/dL 0.20-1.00 [facility] Work Phone: Comment on above: For patients on eltr ombopag therapy, use of Dimension [place] TBIL is not recommended. Chloride [Moles/Vol] 106 mmol/L 98-107 [facility] Work Phone: Cholesterol [Mass/Vol] 162 mg/dL <200 [facility] Work Phone: Comment on above: <200 mg/dL Desirable 200-240 mg/dL Borderline >240 mg/dL High Risk Eosinophils/100 WBC (Bld) 0.8 % 0-5 [facility] Work Phone: Glucose [Mass/Vol] 87 mg/dL 74-106 [facility] Work Phone: Neutrophils (Bld) [#/Vol] 3.2 10*3/uL 2.0-7.7 [facility] Work Phone: Neutrophils/100 WBC (Bld) 64.5 % 47-70 [facility] Work Phone: Potassium [Moles/Vol] 4.3 mmol/L 3.5-5.1 [facility] Work Phone: Protein [Mass/Vol] 7.9 g/dL 6.4-8.2 [facility] Work Phone: Sodium [Moles/Vol] 141 mmol/L 136-145 [facility] Work Phone: Triglyceride [Mass/Vol] 56 mg/dL <199 [facility] Work Phone: Comment on above: The drugs N-Acetylcy steine and Metamizole may falsely depress this assay.Serum Triglycerides Reference Interval Normal <150 mg/dL Borderline high 150 - 199 mg/dL High 200 - 499 mg/dL Very High > or = 500 mg/dL WBC (Bld) [#/Vol] 5.0 10*3/uL 4.4-11.0 [facility] Work Phone: Blood erythrocytes count (nu mber/volume)on 08-12-2022 RBC (Bld) [#/Vol] 4.71 10*6/uL 4.2-5.4 [facility] Work Phone: Blood hemoglobin measurement (mass/volume)on 08-12-2022 Hemoglobin (Bld) [Mass/Vol] 14.6 g/dL 12.0-15. 0 [facility] Work Phone: Blood lymphocytes/100 leukoc yteson 08-12-2022 Lymphocytes/100 WBC (Bld) 20.0 % 19-41 [facility] Work Phone: Blood monocytes/100 leukocyt eson 08-12-2022 Monocytes/100 WBC (Bld) 13.7 % 0-10 [facility] Work Phone: Blood platelet mean volumeon 08-12-2022 Platelet mean volume (Bld) [Entitic vol] 10.1 fL 6.2-12.0 [facility] Work Phone: Determination of erythrocyte mean corpuscular volume (MCV)on 08-12-2022 MCV (RBC) [Entitic vol] 92.6 fL 81-99 [facility] Work Phone: Hematocrit Auto (Bld) [Volum e fraction]on 08-12-2022 Hematocrit (Bld) [Volume fraction] 43.6 % 37-47 [facility] Work Phone: [phone] Iron measurement (mass/mass) on 08-12-2022 Iron (Unsp spec) [Mass/Mass] 69 ug/dL 50-170 [facility] Work Phone: Laboratory - Chemistry and C hemistry - challengeon 08-12-2022 ALP [Catalytic activity/Vol] 77 U/L 45-117 [facility] Work Phone: ALT [Catalytic activity/Vol] 42 U/L 13-56 [facility] Work Phone: CO2 [Moles/Vol] 29.0 mmol/L 21.0-32.0 [facility] Work Phone: Cobalamin (Vitamin B12) [Mass/Vol] 941 pg/mL 211-911 [facility] Work Phone: Globulin (S) [Mass/Vol] 4.2 g/dL 2.2-4.2 [facility] Work Phone: Urea nitrogen/Creatinine [Mass ratio] 16.0 mg/mg 10-20 [facility] Work Phone: Laboratory - Hematology and Cell countson 08-12-2022 Erythrocyte distribution width (RBC) [Entitic vol] 42.6 fL 35.1-43.9 [facility] Work Phone: Erythrocyte distribution width (RBC) [Ratio] 12.4 % 11.6-14.6 [facility] Work Phone: Immature granulocytes/100 WBC (Bld) 0.600 % 0.0-0.9 [facility] Work Phone: Comment on above: IG% - Immature Granu locytes (promyelocytes, myelocytes and metamyelocytes) > 1% indicates that a LEFT SHIFT is Present. MCH (RBC) [Entitic mass] 31.0 pg 27.0-32.0 [facility] Work Phone: Nucleated RBC/100 WBC (Bld) [Ratio] 0 % 0-5 [facility] Work Phone: MCHC Auto (RBC) [Mass/Vol]on 08-12-2022 MCHC (RBC) [Mass/Vol] 33.5 g/dL 32-36 [facility] Work Phone: No Panel Informationon 08-12 Estimated GFR (MDRD) Amer 97 mL/min >60 [facility] Work Phone: Comment on above: GFR Calc Estimated GFR (MDRD) Non-Af Amer 80 mL/min >60 [facility] Work Phone: Comment on above: Non- GFR Calc Vitamin D 25-Hydroxy 28.1 ng/mL [facility] Work Phone: Comment on above: Vitamin D 25(OH) Sta tus Range Deficiency <20 ng/mL (50nmol/L) Insufficiency 20 - 30 ng/mL (50 - 75 nmol/L) Sufficiency 30 - 100 ng/mL (75 - 250 nmol/L) Toxicity >100 ng/mL (>250 nmol/L) Platelets bldon 08-12-2022 Platelets (Bld) [#/Vol] 259 10*3/uL 150-450 [facility] Work Phone: Serum or plasma albumin sean urement (mass/volume)on 08-12-2022 Albumin [Mass/Vol] 3.7 g/dL 3.2-5.0 [facility] Work Phone: Serum or plasma albumin/glob ulin mass ratioon 08-12-2022 Albumin/Globulin [Mass ratio] 0.9 {ratio} 0.9-2.4 [facility] Work Phone: Serum or plasma calcium sean urement (mass/volume)on 08-12-2022 Calcium [Mass/Vol] 9.0 mg/dL 8.5-10.1 [facility] Work Phone: Serum or plasma cholesterol in HDL measurement (mass/volume)on 08-12-2022 Cholesterol in HDL [Mass/Vol] 72 mg/dL >40 [facility] Work Phone: Comment on above: The drugs N-Acetylcy steine and Metamizole may falsely depress this assay. Reference Range HDL <40 mg/dL Low HDL Cholesterol HDL >or= 60 mg/dL High HDL Cholesterol Serum or plasma cholesterol in VLDL measurement (mass/volume)on 08-12-2022 Cholesterol in VLDL [Mass/Vol] 11 mg/dL 5-40 [facility] Work Phone: Serum or plasma creatinine m easurement (mass/volume)on 08-12-2022 Creatinine [Mass/Vol] 0.75 mg/dL 0.55-1.02 [facility] Work Phone: Comment on above: The validity of the calculated GFR & GFRAA in patients over 70 years has not been determined. Clinical correlation is essential. Serum or plasma low density lipoprotein (LDL) cholesterol measurement (mass/volume)on 08-12-2022 Cholesterol in LDL [Mass/Vol] 79 mg/dL 0-130 [facility] Work Phone: Serum or plasma urea nitroge n measurement (mass/volume)on 08-12-2022 Urea nitrogen [Mass/Vol] 12 mg/dL 7-18 [facility] Work Phone: Thin prep Papanicolaou smear with manual screeningon 08-12-2022 Thin prep Papanicolaou smear with manual screening 27 U/L 15-37 [facility] Work Phone: Thin prep Papanicolaou smear with manual screening 6 5-15 [facility] Work Phone: Stool Helicobacter pylori an tigen detection by immunoassayon 08-08-2022 H. pylori Ag IA Ql (Stl) Negative Negative [facility] Work Phone: Comment on above: Performed at: [address] [id number] Director: Brittanie Atkinson MD, Phone: [phone] Laboratory - Microbiology an d Antimicrobial susceptibilityon 11-19-2021 SARS-CoV-2 (COVID-19) RNA KALINA+probe Ql (Unsp spec) Not detected Not Detect [facility] Work Phone: Comment on above: Normal Reference Ran ge: Not DetectedMethod:(RT-PCR) real-time reverse transcriptase PCRLuminex SHEREE Instrument*The Food and Drug Administration (FDA) has issued an Emergency Use Authorization (EAU) for the SHEREE SARS-CoV-2 Assay for the rapid detection of the virus that causes COVID-19. This test has been validated, but the FDAs independent review of this validation is pending.*Negative results do not preclude infection and should not be used as the sole basis for treatment or patient management. Optimum specimen types and timing for peak viral levels during infections caused by SARS-CoV-2 have not been determined. Collection of multiple specimens from the same patient may be necessary to detect the virus. The possibility of a false negative result should be considered if the patient has clinical presentation or has had recent exposure. THYROIDon 07-31-2017 [place] [address] Patient: CARMEN RODRIGES Phone#: : [phone] Age: 66 Gender: F Pt. Type: Out Account: [id number] Location: [facility] Ordering: ANNIE REED Exam Date: 07/31/2017/10:38 Family Phys: Charge Code: [id number] Physician: [place] Order #: [id number] DLP Dose#: PROCEDURE: THYROID ULTRASOUND COMPARISON: None. INDICATIONS: Neck Pain TECHNIQUE: High-resolution ultrasound was performed of the thyroid gland. FINDINGS: RIGHT LOBE: Normal. No visible mass, cyst, calcification, enlargement, or abnormal echotexture. Right lobe measures 3.6 x 1.6 x 2.2 cm. LEFT LOBE: Normal. No visible mass, cyst, calcification, enlargement, or abnormal echotexture. Left lobe measures 3.5 x 1.7 x 1.8 cm. ISTHMUS: Normal. No visible mass, cyst, calcification, enlargement, or abnormal echotexture. Isthmus measures 0.5 cm. OTHER: A few nonspecific lymph nodes are present in the neck. CONCLUSION: 1. The thyroid lobes are unremarkable. 2. A few nonspecific size lymph nodes are present in the neck bilaterally. Dictated by: Karma Sharif MD on 07/31/2017 at 12:51 Approved by: Karma Sharif MD on 07/31/2017 at 12:51 Normal [facility] OVA & PARASITE PERMANENT SME Taylor 05-18-2017 OVA & PARASITE PERMANENT SMEAR Normal [facility] Comment on above: Result Comment: _OVA AND PARASITE, PERMANENT STAIN_OVA AND PARASITES, CONCENTRATE AND PERMANENT SMEARReported: 05/17/2017 18:42 Status=F TEST RESULT FLAG RANGE UNITS OVA AND PARASITES, see below 05/17/17.1854.rfl.COMPLETE.[facility] .[id number] ANDPERMANENT SMEAROVA AND PARASITES, CONCENTRATE AND PERMANENT SMEAREXAMINATION FOR OVA AND PARASITESSOURCE : STOOL RESULT/COMMENT:NO OVA AND PARASITES SEEN.Reference Range: No Ova and Parasites seenRoutine Ova and Parasite Exam may not detect someparasites that occasionally cause diarrheal illness.Test code(s) 64664B[90042](Cryptosporidium Ag, DFA)and/or 02473E[41570] (Cyclospora and Isospora Exam)may be ordered to detect these parasites. One negativesample does not necessarily rule out the presence ofa parasitic infection.Assay performed by wet mount after concentration.PARASITE EXAM, TRICHROME STAINSOURCE : STOOL RESULT/COMMENT:NO OVA AND PARASITES SEEN.Cryptosporidium, Isospora, and Cyclospora speciesmay not be detected by routine trichrome and ova andparasite exams. Test code 2134 (Cryptosporidiosis)should be ordered to detect these parasites.Test Performed by Chucky Sifuentes,[facility],[address] [place] [id number] Lemons M.D., Ph.D., Director of [phone], [place] [id number] Performed By: #### [id number] ####[facility],[address] [place] [id number] C DIFF COMPLETEon 05-09-2017 C DIFF COMPLETE C-DIFF TOXINNEGATIVEC-DIFF AGNEGATIVEINTERNAL NEG QCPASSINTERNAL POS QCPASSEXTERNAL QC DONE?YESINTERPRETATIO N:POSITIVE Ag,POSITIVE Tox = C. Diff is present & producing toxinsPOSITIVE Ag,NEGATIVE Tox = C. Diff is presentNEGATICE Ag,NEGATICE Tox = C. Diff is not presentA low percentage of specimens may test negative for antigen but positivefor toxin. A fresh specimen should be resumbitted for retesting. Normal [facility] Comment on above: Performed By: #### 2 [id number] ####[facility],[address] [place] [id number] CULTURE STOOLon 05-09-2017 CULTURE STOOL CULTURE STOOL _STOOL CULTURE_ M I C R O B I O L O G Y R E P O R T FINAL Antimicrobial Susceptibility and Organism Identification Report Specimen Number : [id number] Requested : 05/10/17 Specimen Source : STOOL Collected : 05/09/17 10:00 [place] of Isolation : OUTPATIENT Received : 05/10/17 10:45 Requesting Physician : ESME Patient/Specimen Tests and Comments Specimen Comments FINAL REPORT: SALMONELLA:NEGATIVE SHIGELLA:NEGATIVE YERSINIA:NEGATIVE CAMPYLOBACTER:NEGATIV E -------Tech : Source : STOOL ID # : [id number] FINAL Report Date : / / : Collected : 05/09/17 10:00 05/13/17.45.MDS. 05/12/17.0641.MDS. 05/11/17.0924.BKO. 05/13/1745.[employer] PLETE Normal [facility] Comment on above: Performed By: #### 2 [id number] ####[facility],[address] [place], [place] [id number] Vital Signs Date Time Vital Sign Value Performing Clinician Linda rodriguez 04-06-2025 12:54-0400 Body height 167.[address] Leslie Santiago DO Work Phone: [facility] 04-17-2023 12:02-0400 Body temperature 98 [degF] Dr. Leslie Santiago Work Phone: [facility] 04-17-2023 12:02-0400 Diastolic blood pressure 58 mm[Hg] Dr. Leslie Santiago Work Phone: [facility] 04-17-2023 12:02-0400 Heart rate 82 /min Dr. Leslie Santiago Work Phone: [facility] 04-17-2023 12:02-0400 Respiratory rate 18 /min Dr. Leslie Santiago Work Phone: [facility] 04-17-2023 12:02-0400 SaO2% (BldA) [Mass fraction] 94 % Dr. Leslie Santiago Work Phone: [facility] 04-17-2023 12:02-0400 Systolic blood pressure 126 mm[Hg] Dr. Leslie Santiago Work Phone: [facility] 04-17-2023 11:45-0400 Inhaled oxygen flow rate 2 L/min Dr. Leslie Santiago Work Phone: [facility] 04-17-2023 07:18-0400 Body height 167.[address] Leslie Santiago Work Phone: [facility] 04-17-2023 07:18-0400 Body mass index (BMI) [Ratio] 27.7 kg/m2 Dr. Leslie Santiago Work Phone: [facility] 04-17-2023 07:18-0400 Body weight 78.[address] Leslie Santiago Work Phone: [facility] 03-26-2023 14:46-0400 Body height 167.[address] Leslie Santiago Work Phone: [facility] 03-26-2023 14:46-0400 Body mass index (BMI) [Ratio] 28.5 kg/m2 Dr. Leslie Santiago Work Phone: [facility] [facility] 03-26-2023 14:46-0400 Body temperature 97.4 [degF] Dr. Leslie Santiago Work Phone: [facility] 03-26-2023 14:46-0400 Body weight 80.[address] Leslie Santiago Work Phone: [facility] 03-26-2023 14:46-0400 Diastolic blood pressure 87 mm[Hg] Dr. Leslie Santiago Work Phone: [facility] 03-26-2023 14:46-0400 Respiratory rate 18 /min Dr. Leslie Santiago Work Phone: [facility] 03-26-2023 14:46-0400 SaO2% (BldA) [Mass fraction] 96 % Dr. Leslie Santiago Work Phone: [facility] 03-26-2023 14:46-0400 Systolic blood pressure 150 mm[Hg] Dr. Leslie Santiago Work Phone: [facility] 01-27-2023 18:00-0400 Diastolic blood pressure 86 mm[Hg] [facility] 01-27-2023 18:00-0400 Heart rate 81 /min [facility] 01-27-2023 18:00-0400 Respiratory rate 18 /min [facility] 01-27-2023 18:00-0400 SaO2% (BldA) [Mass fraction] 99 % [facility] 01-27-2023 18:00-0400 Systolic blood pressure 148 mm[Hg] [facility] 01-27-2023 14:35-0400 Body mass index (BMI) [Ratio] 28.5 kg/m2 [facility] 01-27-2023 14:35-0400 Body weight 80.1 kg [facility] 01-27-2023 14:31-0400 Body height 167.64 cm [facility] 01-27-2023 14:31-0400 Body temperature 97 [degF] [facility] Encounters Encounter Date Encounter Type Care Provider Facility Start: 07-28-2025 ambulatory Leslie Santiago Facility:[facility] Start: 07-06-2025 End: 07-06-[address] [facility] Start: 06-15-2025 End: 06-15-2025 Patient encounter procedure Praveen Jacobs DO [facility] Work Phone: Start: 06-15-2025 End: 06-15-[address] Leslie Santiago DO Work Phone: [facility] Start: 05-25-2025 End: 05-25-[address] Leslie Santiago DO Work Phone: -[facility] Start: 05-25-2025 End: 05-25-[address] Leslie Santiago DO -[facility] Work Phone: Start: 05-25-2025 End: 05-25-2025 ambulatory Leslie Santiago Facility:[facility] Start: 05-11-2025 End: 05-11-[address] Gabino Sheikh DO [facility] Work Phone: Start: 05-11-2025 End: 05-11-[address] Leslie Santiago DO Work Phone: [facility] Start: 04-27-2025 End: 04-27-[address] Leslie Santiago DO Work Phone: -Cat Scan [facility] Start: 04-27-2025 End: 04-27-[address] Gabino Sheikh DO -Cat Scan [facility] Work Phone: Start: 04-27-2025 End: 04-27-2025 ambulatory Gabino Sheikh Facility:[facility] Start: 04-06-2025 End: 04-06-[address] Gokul Maria MD [facility] Start: 04-06-2025 End: 04-06-[address] Leslie Santiago DO Work Phone: [facility] Start: 12-01-2024 End: 12-01-[address] Leslie Santiago DO Work Phone: [facility] Work Phone: Start: 12-01-2024 End: 12-01-2024 Patient encounter procedure Praveen Jacobs DO -Laboratory Work Phone: Start: 12-01-2024 End: 12-01-2024 Patient encounter procedure Praveen Jacobs DO [facility] Work Phone: Start: 12-01-2024 End: 12-01-2024 ambulatory Leslie Santiago Facility:[facility] Start: 12-01-2024 End: 12-01-2024 ambulatory Leslie Santiago Facility:[facility] Start: 04-17-2023 Non-patient / Non-visit Dr. Leslie Santiago Work Phone: [facility] Start: 04-17-2023 End: 04-17-2023 Admission to same day surgery center Dr. [facility] Start: 04-17-2023 End: 04-17-[address] Leslie Santiago Work Phone: [facility] Work Phone: Start: 04-11-2023 End: 04-11-[address] Leslie Santiago Work Phone: [facility] Work Phone: Start: 04-01-2023 End: 04-01-[address] Leslie Santiago Work Phone: [facility] Work Phone: Start: 04-01-2023 End: 04-01-[address] Leslie Santiago Work Phone: [facility] Work Phone: Start: 03-26-2023 End: 03-26-[address] Leslie Santiago Work Phone: [facility] Work Phone: Start: 02-21-2023 End: 02-21-[address] Leslie Santiago Work Phone: [facility] Work Phone: Start: 02-21-2023 End: 02-21-[address] [facility] Start: 02-03-2023 End: 02-03-[address] Leslie Santiago Work Phone: [facility] Work Phone: Start: 02-03-2023 End: 02-03-[address] [facility] Start: 01-31-2023 End: 01-31-[address] Leslie Santiago Work Phone: [facility] Work Phone: Start: 01-31-2023 End: 01-31-[address] [facility] Start: 01-31-2023 End: 01-31-[address] Leslie Santiago Work Phone: [facility] Start: 01-27-2023 End: 01-27-2023 Emergency department patient visit [facility] Start: 01-27-2023 End: 01-27-2023 ambulatory [facility] Work Phone: Start: 01-27-2023 End: 01-27-2023 Patient encounter procedure [facility], [place] Start: 08-12-2022 Patient encounter procedure [facility] Start: 08-08-2022 End: 08-08-2022 ambulatory [facility] Work Phone: Start: 08-08-2022 End: 08-08-[address] [facility] Start: 02-18-2022 End: 02-18-2022 Patient encounter procedure [facility]-Outpatient Breast Imaging Start: 11-20-2021 End: 11-20-2021 Patient encounter procedure [facility], [facility] Start: 07-31-2017 End: 07-31-2017 Ambulatory ANNIE REED [facility] Start: 05-10-2017 End: 05-10-2017 Ambulatory BIJAL VICTORIA [facility] Procedures Date Procedure Procedure Detail Performing Clinician Start: 05-25-2025 Dual energy X-ray absorptiometry Dr. Rukhsana Santiago DO Work Phone: Start: 04-27-2025 MRI of lower extremity Dr. Leslie Santiago DO Work Phone: Start: 04-06-2025 X-ray of lumbar spine, two or three views Dr. Leslie Santiago DO Work Phone: Start: 04-06-2025 Plain x-ray of pelvis and lower extremity Dr. Leslie Santiago DO Work Phone: Start: 04-17-[address] Leslie Santiago Work Phone: Start: 04-17-[address] Leslie Santiago Work Phone: Start: 04-17-2023 Total cholecystectomy and exploration of common bile duct Dr. Leslie Santiago Work Phone: Start: 04-01-[address] Leslie Santiago Work Phone: Start: 02-21-2023 Radionuclide imaging of liver and/or biliary tract using radioactive isotope Dr. Leslie Santiago Work Phone: Start: 02-21-[address] Leslie champion Work Phone: Start: 02-03-2023 Giardia Antigen (CHAMP) Dr. Leslie Santiago Work Phone: Start: 02-03-20[address] parasites identification Dr[address] Leslie Santiago Work Phone: Start: 01-28-[address] Leslie Santiaog Work Phone: Start: 01-27-2023 Computed tomography of abdomen and pelvis with intravenous contrast Start: 01-27-2023 Diagnostic radiography of abdomen Start: 02-18-2022 Screening mammography Clostridium difficile detection Dr. Leslie Santiago Work Phone: [facility] Antigen ([facility]) Dr. Luciana Santiaog Work Phone: Lactoferrin measurement Lactoferrin measurement Dr. Leslie Santiago Work Phone: [facility] [place] parasites identification Dr. Leslie Santiago Work Phone: Urine culture Plan of Treatment Date Care Activity Detail Author Start: 04-06-2025 X-ray of lumbar spine, two or three views Lumbar Spine 2 or 3 Views [facility] Start: 04-06-2025 XR Lumbar spine 2 or 3 Views [facility] Start: 04-06-2025 Plain x-ray of pelvis and lower extremity HIP, UNI W/ Pelvis 2-3 Views [facility] Start: 04-06-2025 XR Pelvis and Hip Views [facility] Start: 04-17-2023 Patient discharge [facility] Start: 02-03-2023 Elastase, pancreatic (el-1), fecal; quantitative [facility] Start: 02-03-2023 Protein measurement [facility] Start: 02-03-2023 [facility] Start: 01-31-2023 Immunoglobulin measurement [facility] Start: 01-31-2023 Serum immunofixation [facility] Start: 01-31-2023 [facility] Ova and parasites identified in Unspecified specimen by Light microscopy [facility] Patient Education ED Abdominal P ain Unkn Cause Fem [facility] Work Phone: Patient referral [facility] Work Phone: Radionuclide imaging of liver and/or biliary tract using radioactive isotope [facility] Serum protein electrophoresis [facility] US Abdomen limited [facility] Immunizations Immunization Date Immunization Notes Care Provider Fa [facility] 08-02-2020 influenza, injectabl e, quadrivalent, preservative free Dr. Leslie Santiago DO Work Phone: [facility] 08-02-2020 influenza, seasonal, injectable [facility] Payers Date Payer Category Payer Private Health Insurance [id number] 2024 Self-pay [id number] Medicare [id number] Unknown [id number] Unknown [id number] 2.16.8 [id number] Unknown [id number] 2.16.8 [id number] Unknown [id number] 2.16.8 [id number] Unknown [id number] 2.16.8 [id number] Unknown [id number] 2.16.8 [id number] Unknown [id number] 2.16.8 [id number] Unknown [id number] 2.16.8 [id number] Unknown [id number] 2.16.8 [id number] Unknown [id number] 2.16.8 [id number] Unknown [id number] 2.16.8 [id number] Unknown [id number] 2.16.8 [id number] Social History Date Type Detail Facility Start: 09-13-2020 End: 04-16-2023 Tobacco smoking status NHIS Unknown if ever smoked [facility] Start: 07-17-2020 Non-smoker [facility] Start: 1950 Sex Assigned At Female [facility] Start: 08-13-2023 Tobacco smoking stat us TXIS Never smoked tobacco (finding) [facility] Start: 12-13-2024 Sex Female (finding) Rob r [facility] Medical Equipment Procedure Code Equipment Code Equipment Origin al Text Equipment Identifier Dates Total cholecystectomy with exploration of common bile duct Ligation clip, synthetic polymer, non-bioabsorbable [id number] FDA Start: 04-17-2023 132 NECK ANGLE H IP STEM FDA Start: 08-01-2020 CLUSTERHOLE ACETABULAR SHELL FDA Start: 08-01-2020 FEMORAL HEAD FDA Start: 08-01-2020 LOW PROFILE HEX SCREW FDA Start: 08-01-2020 POLYETHLENE INSERT FDA Start: 08-01-2020 132 NECK ANGLE H IP STEM FDA Start: 08-01-2020 CLUSTERHOLE ACETABULAR SHELL FDA Start: 08-01-2020 FEMORAL HEAD FDA Start: 08-01-2020 LOW PROFILE HEX SCREW FDA Start: 08-01-2020 POLYETHLENE INSERT FDA Start: 08-01-2020 132 NECK ANGLE H IP STEM FDA Start: 08-01-2020 CLUSTERHOLE ACETABULAR SHELL FDA Start: 08-01-2020 FEMORAL HEAD FDA Start: 08-01-2020 LOW PROFILE HEX SCREW FDA Start: 08-01-2020 POLYETHLENE INSERT FDA Start: 08-01-2020 132 NECK ANGLE H IP STEM FDA Start: 08-01-2020 CLUSTERHOLE ACETABULAR SHELL FDA Start: 08-01-2020 FEMORAL HEAD FDA Start: 08-01-2020 LOW PROFILE HEX SCREW FDA Start: 08-01-2020 POLYETHLENE INSERT FDA Start: 08-01-2020 132 NECK ANGLE H IP STEM FDA Start: 08-01-2020 CLUSTERHOLE ACETABULAR SHELL FDA Start: 08-01-2020 FEMORAL HEAD FDA Start: 08-01-2020 LOW PROFILE HEX SCREW FDA Start: 08-01-2020 POLYETHLENE INSERT FDA Start: 08-01-2020 132 NECK ANGLE H IP STEM FDA Start: 08-01-2020 CLUSTERHOLE ACETABULAR SHELL FDA Start: 08-01-2020 FEMORAL HEAD FDA Start: 08-01-2020 LOW PROFILE HEX SCREW FDA Start: 08-01-2020 POLYETHLENE INSERT FDA Start: 08-01-2020 132 NECK ANGLE H IP STEM FDA Start: 08-01-2020 CLUSTERHOLE ACETABULAR SHELL FDA Start: 08-01-2020 FEMORAL HEAD FDA Start: 08-01-2020 LOW PROFILE HEX SCREW FDA Start: 08-01-2020 POLYETHLENE INSERT FDA Start: 08-01-2020 132 NECK ANGLE H IP STEM FDA Start: 08-01-2020 CLUSTERHOLE ACETABULAR SHELL FDA Start: 08-01-2020 FEMORAL HEAD FDA Start: 08-01-2020 LOW PROFILE HEX SCREW FDA Start: 08-01-2020 POLYETHLENE INSERT FDA Start: 08-01-2020 132 NECK ANGLE H IP STEM FDA Start: 08-01-2020 CLUSTERHOLE ACETABULAR SHELL FDA Start: 08-01-2020 FEMORAL HEAD FDA Start: 08-01-2020 LOW PROFILE HEX SCREW FDA Start: 08-01-2020 POLYETHLENE INSERT FDA Start: 08-01-2020 132 NECK ANGLE H IP STEM FDA Start: 08-01-2020 CLUSTERHOLE ACETABULAR SHELL FDA Start: 08-01-2020 FEMORAL HEAD FDA Start: 08-01-2020 LOW PROFILE HEX SCREW FDA Start: 08-01-2020 POLYETHLENE INSERT FDA Start: 08-01-2020 132 NECK ANGLE H IP STEM FDA Start: 08-01-2020 CLUSTERHOLE ACETABULAR SHELL FDA Start: 08-01-2020 FEMORAL HEAD FDA Start: 08-01-2020 LOW PROFILE HEX SCREW FDA Start: 08-01-2020 POLYETHLENE INSERT FDA Start: 08-01-2020 132 NECK ANGLE H IP STEM FDA Start: 08-01-2020 CLUSTERHOLE ACETABULAR SHELL FDA Start: 08-01-2020 FEMORAL HEAD FDA Start: 08-01-2020 LOW PROFILE HEX SCREW FDA Start: 08-01-2020 POLYETHLENE INSERT FDA Start: 08-01-2020 132 NECK ANGLE H IP STEM FDA Start: 08-01-2020 CLUSTERHOLE ACETABULAR SHELL FDA Start: 08-01-2020 FEMORAL HEAD FDA Start: 08-01-2020 LOW PROFILE HEX SCREW FDA Start: 08-01-2020 POLYETHLENE INSERT FDA Start: 08-01-2020 132 NECK ANGLE H IP STEM FDA Start: 08-01-2020 CLUSTERHOLE ACETABULAR SHELL FDA Start: 08-01-2020 FEMORAL HEAD FDA Start: 08-01-2020 LOW PROFILE HEX SCREW FDA Start: 08-01-2020 POLYETHLENE INSERT FDA Start: 08-01-2020 132 NECK ANGLE H IP STEM FDA Start: 08-01-2020 CLUSTERHOLE ACETABULAR SHELL FDA Start: 08-01-2020 FEMORAL HEAD FDA Start: 08-01-2020 LOW PROFILE HEX SCREW FDA Start: 08-01-2020 POLYETHLENE INSERT FDA Start: 08-01-2020 132 NECK ANGLE H IP STEM FDA Start: 08-01-2020 CLUSTERHOLE ACETABULAR SHELL FDA Start: 08-01-2020 FEMORAL HEAD FDA Start: 08-01-2020 LOW PROFILE HEX SCREW FDA Start: 08-01-2020 POLYETHLENE INSERT FDA Start: 08-01-2020 132 NECK ANGLE H IP STEM FDA Start: 08-01-2020 CLUSTERHOLE ACETABULAR SHELL FDA Start: 08-01-2020 FEMORAL HEAD FDA Start: 08-01-2020 LOW PROFILE HEX SCREW FDA Start: 08-01-2020 POLYETHLENE INSERT FDA Start: 08-01-2020 132 NECK ANGLE H IP STEM FDA Start: 08-01-2020 CLUSTERHOLE ACETABULAR SHELL FDA Start: 08-01-2020 FEMORAL HEAD FDA Start: 08-01-2020 LOW PROFILE HEX SCREW FDA Start: 08-01-2020 POLYETHLENE INSERT FDA Start: 08-01-2020 Goals Date Patient Goal Desired Activity /State Mental Status Date Assessment Result Facility 04-17-2023 Cognitive function Light Pain [facility] Work Phone: 04-17-2023 Cognitive function Patient Orien tation Person;Place;Time [facility] Work Phone: Clinical Notes 01-27-2023 to 04-28-2025 Note Date & Type Note Facility 04-28-2025 Radiology Diagnostic study note [facility] Imaging Services [address], [place] [address] Extremity Lower without Contra MR#: [id number] Acct: [id number] Name: CARMEN RODRIGES Rep #: [id number] : 1950 F 74 From: Gaurav Owusu MD PCP: Dr. Leslie Santiago DO Status: REG CLI Study:Extremity Lower without Contra Date of Exam: 04/27/25 Exam# [id number] Ordering Dr: Gabino Sheikh DO PROCEDURE: EXTREMITY LOWER WITHOUT CONTRA 04/27/2025 REASON FOR EXAM: RECENT FALL AND SEVERE PAIN TECHNIQUE: EXTREMITY LOWER WITHOUT CONTRA Coronal and Sagittal reconstruction series were provided. CONTRAST: None One or more dose reduction techniques were used (e.g., Automated exposure control, adjustment of the mA and/or kV according to patient size, use of iterative reconstruction technique). RADIATION DOSE SUMMARY: DLP: 657 mGycm COMPARISON: April 06, 2025 x-ray FINDINGS: Bones: There is no fracture or dislocation identified. There is mild osteoarthritis with marginal osteophytes and mild joint space narrowing. Soft tissue swelling is noted overlying the trochanteric region, incompletely visualized. The visualized pelvic bones appear intact. Degenerative changes are noted in the lumbar spine. There is diverticulosis visible in the distal colon. There is no free fluid in the included portion of the pelvis. Vascular calcifications are noted. CT/Extremity Lower without Contra IMPRESSION: There is mild osteoarthritis with marginal osteophytes and mild joint space narrowing. MRI or bone scan could be helpful for further evaluation if there is clinical suspicion of a nondisplaced fracture. Soft tissue swelling is noted overlying the trochanteric region, incompletely visualized. Reading Location: [facility] CC: Dr. Gabino Sheikh DO; Dr. Leslie Santiago DO ~ Tram Driver: Signed [facility] 04-06-2025 Evaluation note Diagnosis Onset Date Resolution Hip hematoma, left acute April 062024 12:51pm Lumbar degenerative disc disease acute April 06, 2025 12:51pm Lumbar spondylosis acute April 062024 12:51pm [facility] Work Phone: 1(234) 310-499207-02-2025 Evaluation note* Diagnosis Onset Date Resolution Status Admit Date Hip hematoma, left acute April 062024 12:51pm Lumbar degenerative disc disease acute April 06, 2025 1 2:51pm Lumbar spondylosis acute April 062024 12:51pm Hip hematoma, left acute May 11, 2025 12:47pm Lumbar degenerative disc disease acute May 11, 2025 12:47pm Lumbar spondylosis acute May 11, 2025 12:47pm [facility] Work Phone: 1(825) 779-553007-02-2025 Evaluation note* Diagnosis Onset Date Resolution Status Admit Date Hip hematoma, left acute April 062024 12:51pm Lumbar degenerative disc disease acute April 06, 2025 1 2:51pm Lumbar spondylosis acute April 062024 12:51pm Hip hematoma, left acute May 11, 2025 12:47pm Lumbar degenerative disc disease acute May 11, 2025 12:47pm Lumbar spondylosis acute May 11, 2025 12:47pm IBS (irritable bowel syndrome) acute June 15, 2025 9:28am Pancreas (digestive gland) works poorly acute June 15, 2025 9:28am [facility] Work Phone: [phone]) [phone] Evaluation note* Diagnosis Onset Date Resolution Status Admit Date IBS (irritable bowel syndrome) acute December 01 10:45am Abdominal pain inactive November 072024 10:45am [facility] Work Phone: 1(775) 797-873807-13-2023 Discharge summary Author Niko Cristobal [facility] April 17, 2023 9:50am Note Date/Time April 17, 2023 9:49 am [facility] Medical Records Department [address] [place] [address] Instructions for Home/Discharge Instructions 04/17/23 0948 MR#: [id number] Acct: [id number] Name: CARMEN RODRIGES Rep #:[id number] : 1950 72 From: Niko schofield MD PCP: Dr. Leslie Santiago, DO Status:REG SDC Discharge Instructions Procedure Gallbladder Diet Discharge Diet: Light diet - advance as tolerated Activity Discharge Activity: May Not Drive (for 2-3 days or while taking narcotic pain medications.) and - (Do not drive, work heavy equipment or sign legal documents for 24 hours.) May shower in (days): 1 Lifting Restrictions: 20 lbs for 2 weeks Additional Activity Instructions:: Pain medication may cause nausea. You should typically eat light foods as you take your pain medications. Pain medication may also cause constipation. If this is a problem for you, please discuss with your doctor. Dressing / Incision Call your doctor if your incision/area has: Continuous Slow Oozing, Sudden Increased Bleeding, Increased Pain/ Swelling, Increased Redness and Foul Smelling Discharge Call your doctor if you observe: Fever of 101 or Higher Suture Line Care: Avoid Pulling/Pushing and Avoid Pinching/Bending Remove Dressing in: 2 days Additional Dressing/Incision Instructions:: Leave operative bandaids on for 2 days. When you remove dressing, leave Steri-Strips on until your follow-up appointment, or until the Steri-Strips fall off on their own. Follow Up Care Please Follow Up With: Niko Cristobal MD When: Please call to schedule 2 week follow up appointment. [phone] Test Results: Test results from this visit will be discussed in further detail at your follow- up appointment, if applicable. Discharge Plan Admission Attending Provider: Niko Cristobal Primary Care Provider: Leslie Santiago Discharge Orders/Prescriptions Prescriptions: New oxycodone-acetaminophen [Percocet] 5-325 mg tablet 1 tab PO Q4H PRN (Reason: pain) 5 Days Qty: 20 0RF No Action citalopram 40 mg tablet 40 mg PO DAILY buspirone 10 mg tablet 10 mg PO DAILY Patient Comments: TAKE 1 TABLET BY MOUTH ONCE DAILY amlodipine 2.5 mg tablet 2.5 mg PO DAILY kcagweqiiwol-Jd-aptu-minerals 1 EACH tablet 1 ea PO DAILY esomeprazole magnesium [Nexium] 20 mg capsule,delayed release(DR/EC) 20 mg PO DAILY Qty: 30 0RF ondansetron [ondansetron] 4 mg tablet,disintegrating 4 mg PO Q8H PRN PRN (Reason: Nausea) Qty: 10 0RF alprazolam 1 mg tablet 0.5 mg PO PRN PRN (Reason: anxiety) acetaminophen 500 MG tablet 1,000 mg PO Q8 PRN (Reason: pain) Creon 36,000-114,000- 180,000 unit capsule,delayed release(DR/EC) See Rx Instructions PO .COMPLEX Qty: 56 0RF Rx Instructions: take 1-2 with snacks and 2-3 with meals She will have a voucher Referrals / Follow Up: Leslie Santiago DO [Primary Care Provider] - Disposition Disposition (needs filled in before D/C Order can be placed): Home, Self Care 04/17/23 0950<Electronically signed by Niko Cristobal MD>Niko Cristobal MD CC: Dr. Leslie Santiago DO ~ Signed [facility] Work Phone: 1(971) 466-827807-13-2023 History and physical note Author Niko Cristobal [facility] April 17, 2023 8:24am Note Date/Time April 17, 2023 8:24 am [facility] Medical Records Department [address] [place] [address] History & Physical Exam 04/17/23 0824 MR#: [id number] Acct: [id number] Name: CARMEN RODRIGES Rep #:[id number] : 1950 72 From: Niko schofield MD PCP: Dr. Leslie Santiago, DO Status:[facility] Location: [place] [address] History and Physical Date of Admission: 04/17/23 Intake Vital Signs 03/26/2314:46 Height 5 ft 6 in Weight: 177 lb BMI 28.5 BP 150/87 H Blood Pressure Location Rt brachial Position Sitting Respiration 18 Pulse Source Monitor Temp 97.4 F L Temp Source Tympanic Pulse Oximetry (%) 96 Intake Visit Reasons: F/U MRI Results Chief Complaint: f/u MRI results Allergies sulfamethoxazole [From Bactrim] Allergy (Mild, Verified 04/11/23 09:00) burning skintrimethoprim [From Bactrim] Allergy (Mild, Verified 04/11/23 09:00) burning skinthiopental [From Pentothal] Allergy (Verified 04/11/23 09:00) Anaphylaxis Medications buspirone 10 mg tablet 10 mg PO DAILY 07/05/20 [History Confirmed 04/11/23] citalopram 40 mg tablet 40 mg PO DAILY 07/05/20 [History Confirmed 04/11/23] ygilfhudrcsq-Fh-jouo-minerals 1 ea PO DAILY 07/17/20 [History Confirmed 04/11/23] acetaminophen 500 mg tablet 1,000 mg (2 x 500 mg) PO Q8 #100 tabs 08/02/20 [Rx Confirmed 04/11/23] esomeprazole magnesium 20 mg capsule,delayed release (Nexium) 20 mg PO DAILY #30caps 01/27/23 [Rx Confirmed 04/11/23] ondansetron 4 mg disintegrating tablet 4 mg PO Q8H PRN PRN Nausea #10 tabs 01/27/23 [Rx Confirmed 04/11/23] kwyxgz-rogxrvad-cawlhtc 36,000-114,000-180,000 unit capsule,delay rel (Creon) See Rx Instructions PO .COMPLEX #56 caps 02/10/23 [Rx Confirmed 04/11/23] amlodipine 2.5 mg tablet 2.5 mg PO DAILY 03/26/23 [History Confirmed 04/11/23] methylprednisolone 4 mg tablet 4 mg PO QAM 03/26/23 [History Confirmed 04/11/23] PFSH Surgical History H/O foot surgery Social History Smoking Status: Never smoker HPI HPI HPI: Patient is a 72-year-old female here to discuss her cholecystectomy and her MRI results. She is still having right upper quadrant and epigastric pain. ROS General General: Yes weight change and fatigue; No appetite, colon cancer, breast cancer or weakness HEENT HEENT: No difficulty swallowing, eye injury, eye surgery, swollen glands or hoarseness Endo Endocrine: No thyroid disease, diabetes mellitus, thyroid cancer, Hair loss, heat intolerance or cold intolerance Skin Skin: No rash or changing moles Musc Musculoskeletal: Yes back problems and arthritis; No rheumatoid arthritis, gout or joint pain Cardio Cardiovascular: Yes heart disease and high blood pressure; No murmur, pacemaker, atrial fibrillation, heart attack, heart stent, palpitations, shortness of breat with exertion or chest pain Psych Psychiatric: No depression, anxiety or hearing voices Resp Respiratory: No shortness of breath, No sleep apnea, No cough, No COPD, No asthma, No emphysema and No wheezing Gastro Gastrointestinal: Yes abdominal pain, Yes nausea or vomiting, No diarrhea, No constipation, No blood in stool, No acid reflux, No hemorrhoids, No ulcers, No gallbladder problem and No black,tarry stools Tho Hematologic: No blood thinners, No blood disorders, No bleeding, No anemia and No blood clots Neuro Neurologic: No system reviewed and no additional complaints, except as documented, No as per HPI, No abnormal gait, No abnormal hearing, No abnormal movements, No abnormal speech, No behavioral changes, No burning sensations, No confusion, No convulsions, No disequilibrium, No dizziness, No localized weakness, No frequent falls, No headache(s), No lack of coordination, No loss of vision, No memory loss, No numbness, No other visual disturbances, No radicular pain, No restless legs, No sensory deficit, No syncope, No tingling, No tremor(s), No weakness and No other Exam Const General: cooperative Orientation: alert and oriented x3 HENMT Head: normal to inspection Neck Neck: normal visual inspection and full ROM Chest Chest palpation & inspection: normal inspection of the chest Resp Effort & Inspection: normal respiratory effort Auscultation: clear to auscultation bilaterally Cardio Rate: regular rate Rhythm: regular rhythm GI Inspection: non-distended Palpation: soft and nontender Skin General: no rashes or lesions noted Neuro General: patient alert and patient oriented x3 Extrem General: full ROM Psych Appearance: grossly normal Mental Status: mental status grossly normal Assessment and Plan Assessment and Plan (1) Gallbladder polyp: Status: Chronic (2) Abnormal biliary HIDA scan: Status: Chronic Plan The patient had an abnormal HIDA scan and she has a gallbladder polyp versus mass. I did an MRI which shows that it is encapsulated within the gallbladder. I plan on laparoscopic cholecystectomy. I discussed the procedure in detail with the patient. I discussed the risks, benefits, and alternatives of the procedure. I discussed the risks including but not limited to bleeding, infection, injury to surrounding organs such as the liver, bile duct, bowels. Idid discuss the possibility of having to convert to an open procedure as well asthe possibility that if any injuries occurred this may necessitate further surgery at a tertiary care center. Niko Cristobal MD Pager: [facility] [address] [place] [address], [address] [place] [phone] Office: I have examined the patient and the H&P has been reviewed. There are no clinical changes since date of exam. 04/17/23823 <Electronically signed by Niko Cristobal MD> Cosigner Signature (if applicable): CC: Dr. Niko Cristobal MD; Dr. Leslie Santiago DO~ Signed [facility] Work Phone: [phone]) 947-276607-13-2023 Procedure [facility] 01-27-[address] Craig [facility] January 27, 2023 7:48pm Note Date/Time January 27, 2023 4:2 3pm [facility] Medical Records Department [address] [place] [address] Emergency Department Summary 01/27/23 MR#: [id number] Acct: [id number] Name: CARMEN RODRIGES Rep #:[id number] 1 : 1950 72 From: Yohan Craig MD PCP: Dr. Leslie Santiago, DO Status:REG ER Location: ED HPI History of Present Illness Chief Complaint: Flank Pain Informant: patient Narrative Narrative: Patient comes in with abdominal pain nausea and vomiting. She states the symptoms maybe started with some pain in the right flank. That has been constant. She then had the pain kind of spread down to the lower abdomen but it does go on both sides. It was waxing and waning. Today at work it got much worse. She contacted her physician. They did outpatient blood work which I reviewed. Her white count was normal. She was a little bit dry with elevated BUN and creatinine. But she also has not been eating and drinking quite as well as normal. The only episode of nausea and vomiting was today though. No blood was seen in that. No blood in the stool. Patient does have some mild diarrhea but she has been having this since July. 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 She is due to see Dr. Jacobs but has not yet seen them. She does not carry a diagnosis of Crohn'sor ulcerative colitis. She has not yet had a colonoscopy related to this event. This has been going on and off since July and this is no different than normal. But the pain she is having now is different. In addition to the meds listed in the chart, she is also on Medrol Dosepak at this time. She is on about day for 3 or 4. In addition to the surgeries listed she has also had prior appendectomy. Patient did receive what sounds like Zofran by EMS before coming in. She has good control of nausea now and does not need anything. She did not want anything for pain at this time either. PFSH PFSH Home Medications buspirone 10 mg tablet 10 mg PO DAILY 07/05/20 [History Last Taken Unknown] citalopram 40 mg tablet 40 mg PO DAILY 07/05/20 [History Last Taken Unknown] mhmmsahdnixx-Ms-xpmm-minerals 1 ea PO DAILY 07/17/20 [History Last Taken Unknown] acetaminophen 500 mg tablet 1,000 mg PO Q8 #100 tabs 08/02/20 [Rx Last Taken Unknown] esomeprazole magnesium 20 mg capsule,delayed release (Nexium) 20 mg PO DAILY #30caps 01/27/23 [Rx Last Taken Unknown] ondansetron 4 mg disintegrating tablet 4 mg PO Q8H PRN PRN Nausea #10 tabs 01/27/23 [Rx Last Taken Unknown] Allergy/AdvReac Type Severity Reaction Status Date / Time sulfamethoxazole Allergy Mild burning Verified 09/13/20 11:10 [From Bactrim] skin trimethoprim [From Bactrim] Allergy Mild burning Verified 09/13/20 11:10 skin thiopental [From Pentothal] Allergy Anaphylaxis Verified 09/13/20 11:10 Surgical History H/O foot surgery Social History Smoking Status: Never smoker ROS ROS ED ROS Narrative A complete review of systems was performed and is negative except as documented in the history of present illness. Some specific details below. Constitutional: No recent fevers or chills. EYE: No visual complaints or pain. ENT: No difficulty swallowing. No swelling. No pain. No reflux symptoms CV: No chest pain or palpitations. Respiratory: No dyspnea. No hemoptysis. No difficulty taking breaths. GI: Please see history of present illness. : No frequency dysuria or hematuria. Musculoskeletal: No recent trauma. No pains. Skin: No rash. Nondiaphoretic. Neuro: No weakness or numbness. Endocrine: No polyuria or polydipsia. EXAM Physical Exam Narrative Exam Narrative: CONSTITUTIONAL: Patient is nontoxic in appearance. The patient looks comfortable. HEENT: No notable trauma. Mucous membranes minimally dry. No sinus tenderness. EYES: No conjunctival injection. CARDIOVASCULAR: Regular rate. Regular rhythm. No notable murmur. No JVD. RESPIRATORY: No respiratory distress. Breathing is unlabored. No wheezes. No rhonchi. No rales. No pain with a deep breath. GASTROINTESTINAL: Not distended. Bowel sounds are normal. Despite her symptoms,there is really no notable tenderness. No guarding. No rebound. No palpable mass. No bruit. GENITOURINARY: No tenderness over the bladder. However, she does have some mildright CVA tenderness. MUSCULOSKELETAL: Atraumatic. No peripheral edema. No cord. No tenderness along the deep venous system. No asymmetry. NEUROLOGICAL: Patient is alert and appropriate. No focal deficit noted. SKIN: No noted rashes. No diaphoresis. I see no vesicles or rash anywhere in the area of symptoms. PSYCHIATRIC: Patient is calm. Mood is appropriate. Const Vital Signs: 01/27/23 14:31 01/27/23 16:30 01/27/23 18:00 Temperature 97 F L Temperature Source Temporal Pulse Rate 73 76 81 Respiratory Rate 16 16 18 Blood Pressure 139/91 H 151/92 H 148/86 H Blood Pressure Mean 107 111 106 Pulse Ox 99 98 99 Oxygen Delivery Method Room Air Room Air Room Air MDM MDM MDM Narrative Medical decision making narrative: My independent interpretation of the patient's CT of the abdomen shows no obvious kidney stone. No inflammatory changes of the colon. Final reading showed possible cholelithiasis but no other significant acute process to explainher symptoms. I had reviewed blood work that was already done today. I had added a lipase as that had not been done. Lipase is normal at 41. Patient's urinalysis was slightly cloudy but otherwise normal. Patient's micro urine study showed 0 white cells. I talked to the patient again. She states she gets some cramping down the lowerabdomen but she is thinking most of it is epigastric. Reexamined the patient. There is no right upper quadrant tenderness. Negative Carpio sign. Patient maybe getting some GI discomfort from the recurrent doses of steroids. We will gether started on a PPI. Because she has had occasional nausea we will write for Zofran as needed. We discussed returning with worsening pain, fevers, blood in the stool or any other concerns. She will be following up with her private physician and is getting into see gastroenterology. Lab Data Labs: Laboratory Results - last 24 hr 01/27/23 01/27/23 17:42 17:42 Lipase 41 Urine Color Yellow Urine Clarity Sl. Cloudy Urine pH 7.0 Ur Specific Floral 1.010 Urine Protein Negative Urine Glucose (UA) Normal Urine Ketones Negative Urine Occult Blood Negative Urine Nitrite Negative Urine Bilirubin Negative Urine Urobilinogen Normal Ur Leukocyte Esterase Negative Urine RBC 0 SEEN Urine WBC 0 SEEN Ur Squamous Epith Cells 0-5 SEEN Amorphous Sediment 1+ PHOS Urine Bacteria 0 SEEN Urine Mucus 0 SEEN Radiography Diagnostic Testing: Clinical Impression(s) from Imaging Studies Abdomen/Pelvis CT 01/27/23 16:18 IMPRESSION: Right renal cysts. Possible cholelithiasis. Correlate with ultrasound if needed. Colonic diverticulosis. Electronically Signed: Lavell Amaya DO at 18:37 EDT Reading Location ID and State: [facility] / [place] Tel [phone], Service support , Discharge Plan Triage Chief Complaint: Flank Pain ED Provider: Yohan Craig Dx/Rx/DC Orders Clinical Impression: Abdominal pain, Gastritis Instructions: ED Abdominal Pain Unkn Cause Fem Prescriptions: New esomeprazole magnesium [Nexium] 20 mg capsule,delayed release(DR/EC) 20 mg PO DAILY Qty: 30 0RF ondansetron [ondansetron] 4 mg tablet,disintegrating 4 mg PO Q8H PRN PRN (Reason: Nausea) Qty: 10 0RF No Action citalopram 40 mg tablet 40 mg PO DAILY buspirone 10 mg tablet 10 mg PO DAILY Label Comments: TAKE 1 TABLET BY MOUTH ONCE DAILY qkwqdemmurqt-My-jxpi-minerals 1 EACH tablet 1 ea PO DAILY acetaminophen 500 MG tablet 1,000 mg PO Q8 Qty: 100 0RF Primary Care Provider: Leslie Santiago Referrals: Leslie Santiago DO [Primary Care Provider] - 3-5 Days if not improving Disposition Disposition: Home, Self Care What to do if you have Problems For any increased pain, shortness of breath, bleeding, nausea or vomiting, chestpain, or any unexpected problems, contact your Primary Care Provider. Call [facility] ([phone]) or report to the closest Emergency Room. Call 911 if necessary. 01/27/231947 <Electronically signed by Yohan Craig MD> Cosigner Signature (if applicable): CC: Dr. Leslie Santiago DO ~ Signed [facility] Work Phone: Evaluation noteNo assessment information available [facility] Work Phone: Evaluation note* Diagnosis Onset Date Resolution Status Abnormal biliary HIDA scan c hronic [facility] Work Phone: Evaluation note* Diagnosis Onset Date Resolution Status Abnormal biliary HIDA scan c hronic Abnormal biliary HIDA scan c hronic Gallbladder polyp chronic [facility] Work Phone: Reason for referral (narrative)No reason for referral information [facility] Work Phone: Summary Purpose Family History No Family History Records FoundNo Family History Records Found Advance Directives No Advanced Directives Records Found Advance Directive Response Recorded Date/ Time Living Will Yes August 09 12:09pm Power of Sap Analyst Yes August 09, 2020 12:09pm Advance Directive Response Recorded Date/ Time Living Will Yes August 09 11:09am Power of Sap Analyst Yes August 09, 2020 11:09am Advance Directive Response Recorded Date/ Time Name of Medical Power of Sap Analyst ORALIA CARDENASYDER January 27, 2023 4:33pm Living Will Yes January 27, 2023 4:33pm Power of Sap Analyst Yes January 27 4:33pm Advance Directive Response Recorded Date/ Time Name of Medical Power of Sap Analyst ORALIA RODRIGES January 27, 2023 4:33pm Living Will No April 16, 2023 11:12am Power of Sap Analyst No April 16 11:12am Advance Directive Response Recorded Date/ Time Living Will No April 16, 2023 11:12am Power of Sap Analyst No April 16 11:12am Chief Complaint and Reason for Visit Chief Complaint SCREENING Chief Complaint STOOL 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 Chief Complaint LABS AND ABD XRAY - STAT FLANK PAIN Chief Complaint LABS AND ABD XRAY - STAT FLANK PAIN ER FU E ORDERS E ORDERS Chief Complaint LABS AND ABD XRAY - STAT FLANK PAIN ER FU E ORDERS E ORDERS ABDOMINAL PAIN Chief Complaint LABS AND ABD XRAY - STAT FLANK PAIN ER FU E ORDERS E ORDERS ABDOMINAL PAIN GALLBLADDER GALLBLADDER MASS Reason for Visit Abnormal biliary HID A scan Chief Complaint LABS AND ABD XRAY - STAT FLANK PAIN ER FU E ORDERS E ORDERS ABDOMINAL PAIN GALLBLADDER GALLBLADDER MASS F/U MRI Results Reason for Visit Abnormal biliary HID A scan Abnormal biliary HIDA scan Gallbladder polyp Chief Complaint Admit Date 6 M FU December 01, 2024 10:45am INT LABS December 01, 2024 11:50am Reason for Visit Admit Date IBS (irritable bowel syndrome) December 01, 2024 10:45am Abdominal pain December 01, 2024 10:45am Chief Complaint Admit Date LEFT HIP April 06, 2025 12:51 pm Room April 06, 2025 1:13p m Chief Complaint Admit Date LEFT HIP April 06, 2025 12:51 pm Room April 06, 2025 1:13p m Room April 06, 2025 1:35p m Chief Complaint Admit Date LEFT HIP April 06, 2025 12:51 pm Room April 06, 2025 1:13p m Room April 06, 2025 1:35p m LEFT HIP PAIN April 27, 2025 6:34 pm Reason for Visit Admit Date Hip hematoma, left April 06, 2025 12:51 pm Lumbar degenerative disc disease April d2024 12:51pm Lumbar spondylosis April 06, 2025 12:51 pm Chief Complaint Admit Date LEFT HIP April 06, 2025 12:51 pm Room April 06, 2025 1:13p m Room April 06, 2025 1:35p m LEFT HIP PAIN April 27, 2025 6:34 pm left hip May 11, 2025 12: 47pm Chief Complaint Admit Date LEFT HIP April 06, 2025 12:51 pm Room April 06, 2025 1:13p m Room April 06, 2025 1:35p m LEFT HIP PAIN April 27, 2025 6:34 pm left hip May 11, 2025 12: 47pm OSTEO May 25, 2025 12 :30pm Reason for Visit Admit Date Hip hematoma, left April 06, 2025 12:51 pm Lumbar degenerative disc disease April d2024 12:51pm Lumbar spondylosis April 06, 2025 12:51 pm Hip hematoma, left May 11, 2025 12: 47pm Lumbar degenerative disc disease May 11, 2025 12:47pm Lumbar spondylosis May 11, 2025 12: 47pm Chief Complaint Admit Date LEFT HIP April 06, 2025 12:51 pm Room April 06, 2025 1:13p m Room April 06, 2025 1:35p m LEFT HIP PAIN April 27, 2025 6:34 pm left hip May 11, 2025 12: 47pm OSTEO May 25, 2025 12 :30pm 6 M FU June 15, 2025 9:28am Reason for Visit Admit Date Hip hematoma, left April 06, 2025 12:51 pm Lumbar degenerative disc disease April 12:51pm Lumbar spondylosis April 06, 2025 12:51 pm Hip hematoma, left May 11, 2025 12: 47pm Lumbar degenerative disc disease May 11, 2025 12:47pm Lumbar spondylosis May 11, 2025 12: 47pm IBS (irritable bowel syndrome) June 15, 2025 9:28am Pancreas (digestive gland) works poorly June 15, 2025 9:28am Additional Source Comments INFORMATION SOURCE (unrecogn ized section and content) DATE CREATED AUTHOR 03/31/2018 [facility] DATE CREATED AUTHOR AUTHOR'S ORGANIZ ATION 07/27/2025 [facility] Goals (unrecognized section and content) Goals may be documented in a n alternate sectionGoals may be documented in an alternate sectionGoals may be documented in an alternate sectionGoals may be documented in an alternate sectionGoals may be documented in an alternate sectionGoals may be documented in an alternate sectionGoals may be documented in an alternate sectionGoals may be documented in an alternate sectionGoals may be documented in an alternate sectionGoals may be documented in an alternate sectionGoals may be documented in an alternate sectionGoals may be documented in an alternate sectionGoals may be documented in an alternate sectionGoals may be documented in an alternate sectionGoals may be documented in an alternate sectionGoals may be documented in an alternate sectionGoals may be documented in an alternate section Care Teams (unrecognized sec tion and content) Team Status: Active Member Role Status Dates Dr. Leslie Santiago DO Family Provider Active Dr. Leslie Santiago DO Primary Care Provider Active Team Status: Active Member Role Status Dates Dr. Leslie Santiago DO Primary Care Provide r, Attending Provider, Referring Provider Active Team Status: Inactive Member Role Status Dates Dr. Leslie Santiago DO Primary Care Provider Active Dr. Yohan Craig MD Emergency Provider Active Team Status: Inactive Member Role Status Dates Dr. Leslie Santiago DO Primary Care Provide r, Attending Provider, Referring Provider Active Team Status: Inactive Member Role Status Dates Dr. Leslie Santiago DO Primary Care Provider, Referring P smita Active Dr. Praveen Jacobs , DO Attending Provider Active Team Status: Inactive Member Role Status Dates Dr. Leslie Santiago DO Primary Care Provider Active Dr. Yohan Craig MD Attending Provider, Emergency Provider Active Team Status: Inactive Member Role Status Dates Dr. Leslie Santiago DO Primary Care Provider Active Dr. Praveen Jacobs DO Attending Provider, Referring Provider Active Team Status: Active Member Role Status Dates Dr. Leslie Santiago DO Primary Care Provider Active Dr. Praveen Jacobs DO Attending Provider, Referring Provider Active Team Status: Inactive Member Role Status Dates Dr. Leslie Santiago DO Primary Care Provider, Referring P rovider Active Dr. Niko Cristobal MD Attending Provider Active Team Status: Inactive Member Role Status Dates Dr. Leslie Santiago DO Primary Care Provider Active Dr. Niko Cristobal MD Attending Provider, Referr ing Provider Active Team Status: Active Member Role Status Dates Dr. Leslie Santiago DO Primary Care Provider Active Dr. Niko Cristobal MD Attending Pr ovider, Referring Provider, Other Provider Active Team Status: Inactive Member Role Status Dates Dr. Leslie Santiago DO Primary Care Provider Active Start: December 01, 2024 End: December 01, 2024 Dr. Leslie Santiago DO Referring Provider Active St art: December 01, 2024 End: December 01, 2024 Dr. Praveen Jacobs DO Attending Provider Active Start: December 01, 2024 End: December 01, 2024 Team Status: Inactive Member Role Status Dates Dr. Leslie Santiago DO Primary Care Provider Active Start: December 01, 2024 End: December 01, 2024 Dr. Praveen Jacobs DO Attending Provider Active Start: December 01, 2024 End: December 01, 2024 Dr. Praveen Jacobs DO Referring Provider Active Start: December 01, 2024 End: December 01, 2024 Team Status: Active Member Role/Relationship Status Dates Dr. Leslie Santiago DO Family Provider Active Dr. Leslie Santiago DO Primary Care Provider Active Team Status: Active Member Role/Relationship Status Dates Dr. Leslie Santiago DO Primary Care Provider Active Start: April 06, 2025 Dr. Leslie Santiago DO Referring Provider Active St art: April 06, 2025 Dr. Gabino Sheikh DO Attending Provider Active Start: April 06, 2025 Team Status: Inactive Member Role/Relationship Status Dates Dr. Leslie Santiago DO Primary Care Provider Active Start: April 06, 2025 End: April 06, 2025 Dr. Gokul Maria MD Attending Provider Active S tart: April 06, 2025 End: April 06, 2025 Team Status: Inactive Member Role/Relationship Status Dates Dr. Leslie Santiago DO Primary Care Provider Active Start: April 06, 2025 End: April 06, 2025 Dr. Gokul Maria MD Attending Provider Active S tart: April 06, 2025 End: April 06, 2025 Team Status: Inactive Member Role/Relationship Status Dates Dr. Leslie Santiago DO Primary Care Provider Active Start: April 06, 2025 End: April 06, 2025 Dr. Leslie Santiago DO Referring Provider Active St art: April 06, 2025 End: April 06, 2025 Dr. Gabino Sheikh DO Attending Provider Active Start: April 06, 2025 End: April 06, 2025 Team Status: Active Member Role/Relationship Status Dates Dr. Leslie Santiago DO Primary Care Provider Active Team Status: Inactive Member Role/Relationship Status Dates Dr. Leslie Santiago DO Primary Care Provider Active Start: April 27, 2025 End: April 27, 2025 Dr. Gabino Sheikh DO Attending Provider Active Start: April 27, 2025 End: April 27, 2025 Dr. Gabino Sheikh DO Referring Provider Active Start: April 27, 2025 End: April 27, 2025 Team Status: Inactive Member Role/Relationship Status Dates Dr. Leslie Santiago DO Primary Care Provider Active Start: May 11, 2025 End: May 11, 2025 Dr. Leslie Santiago DO Referring Provider Active St art: May 11, 2025 End: May 11, 2025 Dr. Gabino Sheikh DO Attending Provider Active Start: May 11, 2025 End: May 11, 2025 Team Status: Inactive Member Role/Relationship Status Dates Dr. Leslie Santiago DO Primary Care Provider Active Start: May 25, 2025 End: May 25, 2025 Dr. Leslie Santiago DO Attending Provider Active St art: May 25, 2025 End: May 25, 2025 Dr. Leslie Santiago DO Referring Provider Active St art: May 25, 2025 End: May 25, 2025 Team Status: Inactive Member Role/Relationship Status Dates Dr. Leslie Santiago DO Primary Care Provider Active Start: June 15, 2025 End: June 15, 2025 Dr. Leslie Santiago , DO Referring Provider Active St art: June 15, 2025 End: June 15, 2025 Dr. Praveen Jacobs , DO Attending Provider Active Start: June 15, 2025 End: June 15, 2025 FOR RECORDS PERTAINING TO PATIENTS WHO ARE OR HAVE BEEN ENROLLED IN A CHEMICAL DEPENDENCY/SUBSTANCEABUSE PROGRAM, SOME INFORMATION MAY BE OMITTED. This clinical summary was aggregated from multiple sources. Caution should be exercised in using it in the provision of clinical care. This summary normalizes information from multiple sources, and as a consequence, information in this document may materially change the coding, format and clinical context of patient data. In addition, data may be omitted in some cases. CLINICAL DECISIONS SHOULD BE BASED ON THE PRIMARY CLINICAL RECORDS. [employer] provides no warranty or guarantee of the accuracy or completeness of information in this document.
[2025-07-28] MEDS: Lactated Ringers 1,000 ML 15 ML IV (05:54)
--- NOTE | 2025-07-28 06:30 | COLBX_PTH ---
PATIENT: CARMEN RODRIGES LOC: EN U#:[id number] AGE/SX: 74/F ROOM: RE07/28/[address]: Dr. Praveen Jacobs DO : 1950 BED: DIS: 07/28/2025 SPEC #: [id number] RECD: 07/28/25 08:10 STATUS: FLORI RELisette #: [id number] ERNA: 07/28/25 06:[address]: Praveen Jacobs DEPT: SURGICAL PATHOLOGY RECD BY: Juan Jose Gutierrez ENTERED: 07/28/25 10:59 SP TYPE: COLON BX KENNEDY DR: Dr. Leslie Santiago DO Tissues: A - COLON BIOPSY Procedures: Trichrome (control) Special Stain Group I Surgery Specimen Level IV HEADER OPERATION: Colonoscopy, biopsy PRE-OP DIAGNOSIS: Irritable bowel syndrome, abdominal pain TISSUE SUBMITTED: A- Random colon biopsy MICROSCOPIC DIAGNOSIS A. Colon, random, biopsy: - Active inflammation with focal intraepithelial lymphocytosis and thickening of the subepithelial collagen plate, consistent with collagenous (microscopic) colitis. - Trichrome stain highlights the thickened subepithelial collagen, supporting the histologic impression. MICROSCOPIC DESCRIPTION Slides are reviewed. GROSS DESCRIPTION A. Received in fixative is one container labeled with the patient's name and designated Random colon biopsy. The specimen consists of multiple irregular fragments of moser tissue that in aggregate measure 1.1 x 1 x 0.2 cm. The specimen is totally submitted in one cassette. [place] 07/28/2025 CPT:21730,82087
--- NOTE | 2025-07-28 06:35 | PCM.PRE.AN2 ---
ASA Classification* ASA Classification ASA Classification: 2 Assessment & Plan Anesthesia* Anesthesia Assessment Anesthesia Assessment: Discussed sedation and/or anesthesia options, risks, benefits, and alternatives with patient/parents/legal guardian/POA. Questions invited. The patient/parents/legal guardian/POA seems to understand and agrees to proceed with anesthesia plan. Reviewed the physical assessment, medical history, allergy history and patient home medications list prior to surgery/procedure/anesthetic and documented any changes. Performed airway and anesthesia risk assessments. Anesthesia Type Anesthesia Type: MAC History Source History Obtained from:: Patient and Chart Anesthesia Focused Assessment* Temperature: 98 F Pulse Rate: 71 Blood Pressure: 140/86 Respiratory Rate: 16 Pulse Ox: 99 Oxygen Delivery Method: Room Air Airway Assessment Mouth opens: >3 cm Mallampati Score: II Teeth Condition: Intact Neck Range of motion (ROM): Limited ROM Labs Anesthesia Preop lab: CBC WBC, (4.4-11.0) 7.8 K/mm3 01/31/23, 13:55 RBC, (4.2-5.4) 5.05 M/mm3 01/31/23, 13:55 Hgb, (12.0-15.0) 15.6 g/dL H 01/31/23, 13:55 Hct, (37-47) 47.2 % H 01/31/23, 13:55 Plt Count, (150-450) 238 K/mm3 01/31/23, 13:55 CHEMISTRY Potassium, (3.5-5.1) 4.2 mmol/L 01/31/23, 13:55 Sodium, (136-145) 136 mmol/L 01/31/23, 13:55 Magnesium, (1.6-2.6) 2.1 mg/dL 07/26/20, 11:21 BUN, (7-18) 19 mg/dL H 01/31/23, 13:55 Creatinine, (0.55-1.02) 0.76 mg/dL 01/31/23, 13:55 Glucose, (74-106) 92 mg/dL 01/31/23, 13:55 POC Glucose, (70-110) 103 mg/dL 08/01/20, 07:36 COAG PT, (11.7-14.9) 13.2 SECONDS 07/26/20, 11:22 Pre-Assessment Diagnosis/Proposed Procedure Planned Operative Procedure(s): cscope Anesthesia History 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 When Was Last Pacemaker Check QUESTION #4 FULL TEXT: You/Your Family Experience fever (hyperthermia) with Anesthesia Last Oral Intake Last Oral intake: Last Oral Intake NPO since 02:30 07/28/25 05:44 Meds taken in AM with sips of Yes 07/28/25 05:44 water? 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 Female Yes 07/27/25 11:42 HX of Motion Sickness Yes 07/27/25 11:42 HX of N/V After Surgery Yes 07/27/25 11:42 Non-Smoker Yes 07/27/25 11:42 Duration of Surgery greater No 07/27/25 11:42 than 60 minutes Number of Risk Factors 4 07/27/25 11:42 PONV Score Severe Risk 07/27/25 11:42 Height & Weight Height & Weight: Anesthesia: Height & Weight Height 5 ft 4 in 07/28/25 05:44 Weight: 75.8 kg 07/28/25 05:44 Body Mass Index (BMI) 28.6 07/28/25 05:44 Respiratory Assessment Respiratory Assessment - mixing machine operator: Respiratory Tract Infection Hx - mixing machine operator Hx Respiratory Tract Infection No 07/27/25 11:42 STOP Sleep Apnea STOP Sleep Apnea - mixing machine operator: STOP Sleep Apnea - mixing machine operator Hx Hypertension Yes: controlled with med 07/27/25 11:42 Hx Sleep Apnea Yes 07/27/25 11:42 CPAP Yes 07/27/25 11:42 BIPAP No 07/27/25 11:42 Do you snore loudly (louder than talking or can be heard Do you often feel tired/ fatigued/ sleepy during daytime? Has anyone observed you stop breathing during sleep? STOP Results Positive 07/27/25 11:42 QUESTION #5 FULL TEXT : Do you snore loudly (louder than talking or can be heard through closed doors)? 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 Specify any problems Hx of Preganancy in last 3 N/A 07/27/25 11:42 Months Nurse Filling Out Transfusion NBUCHER 07/27/25 11:42 & Questions: Date: 07/27/25 07/27/25 11:42 Time: 11:43 07/27/25 11:42 Patient unable to answer at this time (ie. confused, unrespo /Reproduction History /Reproductive History - mixing machine operator: /Reproductive Hx- mixing machine operator Hx Now No 07/27/25 11:42 Gestational Age (in weeks): EDC: Hx Hx Para Hx Section SAB No 07/27/25 11:42 Active Medications Active Medications: Current Medications Generic Name Dose Route Start Last Admin Trade Name Freq PRN Reason Stop Dose Admin Lactated Ringer's 1,000 mls @ 15 mls/hr 07/28/25 05:45 07/28/25 05:54 IV 15 mls/hr .Q48H CASANDRA Administration PFSH Medical History Leg cramps MVP (mitral valve prolapse) Pancreas (digestive gland) works poorly Wears glasses Cancer Depression Anxiety History of steroid therapy Arthritis DVT (deep venous thrombosis) Injury of back Injury of head and neck Seizures History of diverticulitis Gastric reflux Non-smoker CPAP (continuous positive airway pressure) dependence Sleep apnea History of edema Hypertension History of irregular heartbeat Home Medications ?Medication ?Instructions ?Recorded ?Last Taken ?Type buspirone 10 mg tablet 10 mg PO DAILY 07/05/20 07/27/25 History bcuhqvdytrne-Yq-iivz-minerals 1 ea PO DAILY 07/17/20 Unknown History amlodipine 2.5 mg tablet 2.5 mg PO DAILY 03/26/23 07/28/25 History acetaminophen 500 mg tablet 1,000 mg PO Q8 PRN pain 04/16/23 Unknown History duloxetine 60 mg capsule,delayed 60 mg PO DAILY 08/13/23 07/27/25 History release tizanidine 2 mg capsule 2 mg PO QHS 06/02/24 Unknown History daija enzymes 1 tab PO TID 12/01/24 Unknown History omeprazole 20 mg capsule,delayed 20 mg PO BID PRN gerd 12/01/24 Unknown History release diphenoxylate-atropine 2.5 1 tab PO TID PRN diarrhea #90 tabs 07/05/25 Unknown Rx mg-0.025 mg tablet Allergy/AdvReac Type Severity Reaction Status Date / Time sulfamethoxazole (From Allergy Mild burning Verified 07/28/25 05:43 Bactrim) skin trimethoprim (From Bactrim) Allergy Mild burning Verified 07/28/25 05:43 skin thiopental (From Pentothal) Allergy Anaphylaxis Verified 07/28/25 05:43 Surgical History S/P laparoscopic cholecystectomy Hx of dilation and curettage Hx of surgical procedure Hx of colonoscopy Hx of total hip arthroplasty Hx of shoulder surgery Hx of appendectomy H/O foot surgery Social History Smoking Status: Never smoker Review of Systems (Anesthesia) ROS Narrative System reviewed and no additional complaints, except as documented.
--- NOTE | 2025-07-28 06:37 | HP.PCM_ITS ---
HPI - General General Date of Admission: 07/28/25 Date of Service: 07/28/25 Chief Complaint: abdominal pain HPI Narrative CARMEN RODRIGES, is a 74 F who presents for the evaluation of abdominal pain [facility] 01.27.23 with right flank pain extending into abdomen for several days and new onset N/V; loose stools with a different character abdominal pain present since July. PPI started. No acute finding and she was discharged home. ?CT abd/pel granulomatous calcifications of liver; ?cholelithiasis; colonic diverticulosis. ?KUB without acute/chronic finding. *[facility] established 01.31.23 mentions she is extremely depressed; unable to give clear history or explanation of symptoms. Since July 2022 she has been having loose stools and abdominal pain; additional difficulty with generally feeling unwell, stomach gurgling and belching. Prednisone and Lomotil has been the only this that is helpful. ?Biochemical CBC, ESR, CMP, LFT, KATHRIN comp (ROAD MACHINE OPERATOR 1), ANCA, GAME, celiac, NELIDA without pertinent abnormality. ?LDH H255, CRP 5.94 ?Stool calprotectin, C.difficile, lactoferrin, O/P, giardia WNL. ? ? Elastase L141 Contact 02.10.23 with results. Recommend start of Creon. Patient assistance and voucher for samples mailed. US abd 02.21.23 hepatic measurement 16cm with fatty infiltration; gallbladder suggestion of two polyps [id number] and a soft tissue density at the fundus 1.9cmx1.4cm, MRI recommended. ?HIDA 02.22.23 EF 16% Contact 02.27.23 VM left to return call to discuss US and HIDA scan results. Referred to [facility]. Letter mailed 03.07.23 after several call attempts. [facility] established and underwent surgical operation. 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 Reports she attempted Creon but reports she had diarrhea, shaking and terrible headaches. She is seeing her PCP who is managing her depression/anxiety. Continues to have gurgling of her abdomen and increased gas/flatulence. ? ?abd/pelvis CT 07.07.23 Status post cholecystectomy. Pancreatic atrophy. OV 8.28.24 pt reports that she is feeling well overall and denies GI symptoms of concern at this time. abd/pelvis 9.18.24 1. Limited study due to motion in the contrast portion of the images. 2. No CT evidence of any suspicious mass in the uncinate process, head, body and tail of the pancreas. Dedicated MR of the pancreas with and without contrast will be very helpful for further evaluation of precancerous pancreatic tumor since this is not obvious on CT. 3. No obvious significant change. OV 2.25? OV 9.07.30 pt reports that her bowel movements had improved, but i the past few weeks has started having increased diarrhea. Pt reports she is unsure which foods are bothering her stomach. States that lomotil is helpful but really has to load up on it. Pt reports she had a physical with her primary a few weeks ag o and was told it's time to schedule another colonoscopy; last was about 10 years ago. [facility] Medical History Leg cramps MVP (mitral valve prolapse) Pancreas (digestive gland) works poorly Wears glasses Cancer Depression Anxiety History of steroid therapy Arthritis DVT (deep venous thrombosis) Injury of back Injury of head and neck Seizures History of diverticulitis Gastric reflux Non-smoker CPAP (continuous positive airway pressure) dependence Sleep apnea History of edema Hypertension History of irregular heartbeat Home Medications ?Medication ?Instructions ?Recorded ?Last Taken ?Type buspirone 10 mg tablet 10 mg PO DAILY 07/05/2007/07 History xxtseoljoiub-Qn-thyo-minerals 1 ea PO DAILY 07/17/20 U nknown History amlodipine 2.5 mg tablet 2.5 mg PO DAILY 03/26/23 History acetaminophen 500 mg tablet 1,000 mg PO Q8 PRN pain Unknown History duloxetine 60 mg capsule,delayed 60 mg PO DAILY 07/27/25 History release tizanidine 2 mg capsule 2 mg PO QHS 06/02/24 Unknown History daija enzymes 1 tab PO TID 12/01/24 Unknow n History omeprazole 20 mg capsule,delayed 20 mg PO BID PRN gerd 12/01/24 Unknown History release diphenoxylate-atropine 2.5 1 tab PO TID PRN diarrhea # 90 tabs 07/05/25 Unknown Rx mg-0.025 mg tablet Allergy/AdvReac Type Severity Reaction Status Date / Time sulfamethoxazole (From Allergy Mild burning Verified 07/28/25 05:43 Bactrim) skin trimethoprim (From Bactrim) Allergy Mild burning Verified 07/28/25 05:43 skin thiopental (From Pentothal) Allergy Anaphylaxis Verified 07/28/25 05:43 Surgical History S/P laparoscopic cholecystectomy Hx of dilation and curettage Hx of surgical procedure Hx of colonoscopy Hx of total hip arthroplasty Hx of shoulder surgery Hx of appendectomy H/O foot surgery Social History Smoking Status: Never smoker ROS Constitutional Constitutional: Denies fatigue, fever(s), poor appetite, weight gain or weight loss Gastrointestinal Gastrointestinal: Denies belching, bloating, change in bowel habits, change in stool character, chewing difficulty, coffee ground emesis, constipation, cramping, diarrhea, dyspepsia, dysphagia, early satiety, excessive flatus, fecal incontinence, heartburn, hematemesis, hematochezia, hemorrhoids, loose stools, melena, nausea, odynophagia, rectal bleeding, tenesmus, vomiting or weight changes Vital Signs Vital Signs Vital Signs: 07/28/25 05:44 07/28/25 05:44 07/28/25 06:37 Temperature 98 F 98 F Temperature Source Temporal Pulse Rate 71 71 Respiratory Rate 16 16 Respiratory Pattern Normal Blood Pressure 140/86 H 140/86 H Blood Pressure Mean 104 Blood Pressure Source Monitor Blood Pressure Position Sitting Blood Pressure Location Right Arm Pulse Ox 99 99 Oxygen Delivery Method Room Air Room Air Weight Weight: 167 lb 1.766 oz Body Mass Index (BMI) 28.6 Physical Exam Const alert, oriented x3, no apparent distress and healthy appearing General Appearance: cooperative GI normal to inspection, nondistended, normoactive bowel sounds, soft to palpation, non-tender and non-distended Percussion: normal to percussion Rectal Exam: deferred Assessment & Plan Assessment/Plan (1) IBS (irritable bowel syndrome): (2) Abdominal pain: PLAN: Assessment and Plan Assessment and Plan (1) IBS (irritable bowel syndrome): Status: Acute Plan: 74-year-old patient presents with a 3-month history of alternating bowel habits. The patient reports episodes of severe constipation lasting 3?5 days, c haracterized by hard, lumpy stools and significant straining. These episodes are followed by periods of loose, watery diarrhea occurring 3?5 times per day. The patient complains of associated abdominal cramping, bloating, and gas, which are partially relieved with a bowel movement. A loss of appetite over the last month is noted. The patient denies fever, chills, or bloody stools. She has a history of constipation, but never with this severity or alternating pattern. The patient has hypertension and osteoarthritis. * Differential Diagnosis: * Irritable Bowel Syndrome with Mixed Bowel Habits (IBS-M):?This is a very common cause of alternating constipation and diarrhea, especially when associated with abdominal pain that is relieved by a bowel movement. This is the leading diagnosis at this time. * Fecal Impaction with Paradoxical Diarrhea:?Severe constipation can lead to a blockage, with loose, watery stool leaking around the impaction. This is a critical do not miss diagnosis in the elderly, and the rectal exam helps to rule this in or out. * Medication Side Effects:?Nonsteroidal anti-inflammatory drugs (NSAIDs) and other medications can cause gastrointestinal upset. Calcium supplements are a known cause of constipation. * Colorectal Cancer:?Although less likely given the lack of bloody stools, it must be considered in older patients with a change in bowel habits. A colonoscopy is warranted. * Endocrine Disorders:?Thyroid disease (hypo- or hyperthyroidism) can cause bowel habit changes. * Infection:?Certain chronic infections (e.g.,?Clostridioides difficile) or persistent parasitic infections can alter bowel habits, but the presentation is less classic for this. * Small Intestinal Bacterial Overgrowth:?Can cause bloating and alternating bowel movements.? Plan * Diagnostics: * Laboratory Work:?Complete blood count , comprehensive metabolic panel (CMP), thyroid-stimulating hormone, and C-reactive protein. * Colonoscopy:?Recommended given the patient's age and new onset of altered bowel habits to rule out malignancy and inflammatory bowel disease. * Therapeutics: * Hydration:?Instruct the patient to increase daily fluid intake to 64 oz (8 glasses) per day. * Dietary Modifications:?Advise a high-fiber diet, recommending gradual increases in fruits, vegetables, and whole grains. Consider a low FODMAP diet if IBS is confirmed. * Medication Review:?Discontinue OTC laxatives and antidiarrheals. Evaluate the need for current medications, especially NSAIDs and calcium supplements, and discuss alternatives if necessary. * Pharmacological Management : * For constipation:?Prescribe an osmotic laxative (polyethylene glycol 17gm daily) to help soften stools without causing reliance. * For diarrhea:?If an episode occurs, advise a bland diet and good hydration. As needed Lomotil. (2) Pancreas (digestive gland) works poorly: Status: Acute Plan: Continue to take pancreatic enzymes she will need to meal and 1 with a snack. Orders: Orders Abdomen/Pelvis WITH Contrast Today K58.9 - Irritable bowel syndrome, unspecified, R10.9 - Unspecified abdominal pain, R19.7 - Diarrhea, unspecified Referrals Nutrition Referral K58.9 - Irritable bowel syndrome, unspecified ]
--- NOTE | 2025-07-28 07:26 | PCM.POST.ANE ---
Anesthesia: Postop Eval I Current Vital Signs Temperature: 98 F Pulse Rate: 74 Blood Pressure: 124/83 Respiratory Rate: 16 Pulse Ox: 98 Oxygen Delivery Method: Room Air Assessment Airway patent: Yes Spontaneous unlabored respirations: Yes Mental status: Awake and Calm nausea: No Vomiting: No Anesthesia Complication: No Fluid Hydration Crystalloid volume administer (ml): 700 Total IV fluid infused: 700 Progress Note Anesthesia document: Postop Eval 1 completed: Yes
--- NOTE | 2025-07-28 07:28 | OP.PROVAT_ITS ---
07/28/2025 Leslie Santiago [address] [place] [address] Re : Colonoscopy procedure for Sanjana Hassan Dear Dr. Santiago This procedure was performed on July. My impressions and recommendations are as follows: Impressions : - Granularity in the entire examined colon. Biopsied. - Diverticulosis in the recto-sigmoid colon, in the sigmoid colon and in the descending colon. Recommendations : - Discharge patient to home. - Resume previous diet. - Continue present medications. - Await pathology results. - Repeat colonoscopy in 5 years for surveillance. My findings are described in the full procedure note, which is enclosed. If I can be of further assistance, please feel free to contact me at . Sincerely, Praveen Jacobs, 07/28/2025 7:27:14 AM This report has been signed electronically.
--- NOTE | 2025-07-28 07:28 | OP.COLON_ITS ---
Patient Name: Sanjana Hassan Procedure Date: 07/28/2025 6:25 AM Date of : 1950 Age: 74 Procedure: Colonoscopy Indications: Clinically significant diarrhea of unexplained origin Providers: Praveen Jacobs DO Referring MD: Leslie Santiago Medicines: Monitored Anesthesia Care Patient Profile: This is a 74 year old female. Refer to note in patient chart for documentation of history and physical. Last Colonoscopy: several years ago. Complications: No immediate complications. Procedure: Pre-Anesthesia Assessment: - Prior to the procedure, a History and Physical was performed, and patient medications and allergies were reviewed. The patient is competent. The risks and benefits of the procedure and the sedation options and risks were discussed with the patient. All questions were answered and informed consent was obtained. Patient identification and proposed procedure were verified by the physician in the pre-procedure area. Mental Status Examination: alert and oriented. Airway Examination: normal oropharyngeal airway and neck mobility. Respiratory Examination: clear to auscultation. CV Examination: normal. ASA Grade Assessment: II - A patient with mild systemic disease. After reviewing the risks and benefits, the patient was deemed in satisfactory condition to undergo the procedure. The anesthesia plan was to use monitored anesthesia care (MAC). Immediately prior to administration of medications, the patient was re-assessed for adequacy to receive sedatives. The heart rate, respiratory rate, oxygen saturations, blood pressure, adequacy of pulmonary ventilation, and response to care were monitored throughout the procedure. The physical status of the patient was re-assessed after the procedure. After I obtained informed consent, the scope was passed under direct vision. Throughout the procedure, the patient's blood pressure, pulse, and oxygen saturations were monitored continuously. The Colonoscope was introduced through the anus and advanced to the cecum, identified by appendiceal orifice and ileocecal valve. The colonoscopy was performed without difficulty. The patient tolerated the procedure well. The quality of the bowel preparation was adequate. The ileocecal valve, appendiceal orifice, and rectum were photographed. Scope In: 6:53:04 AM Scope Withdrawal Time 0 hours 13 minutes 30 seconds Scope Out: 7:16:02 AM Total Procedure Duration Time 0 hours 22 minutes 58 seconds Findings: The perianal and digital rectal examinations were normal. A diffuse area of granular mucosa was found in the entire colon. Biopsies were taken with a cold forceps for histology. Verification of patient identification for the specimen was done. Estimated blood loss was minimal. Multiple small and large-mouthed diverticula were found in the recto-sigmoid colon, sigmoid colon and descending colon. Impression: - Granularity in the entire examined colon. Biopsied. - Diverticulosis in the recto-sigmoid colon, in the sigmoid colon and in the descending colon. Recommendation: - Discharge patient to home. - Resume previous diet. - Continue present medications. - Await pathology results. - Repeat colonoscopy in 5 years for surveillance. Procedure Code(s): --- Professional --- 51870, Colonoscopy, flexible; with biopsy, single or multiple CPT copyright 2021 [employer]. All rights reserved. The codes documented in this report are preliminary and upon learning strategist review may be revised to meet current compliance requirements. Praveen Jacobs DO 07/28/2025 7:27:14 AM This report has been signed electronically. Number of Addenda: 0 Note Initiated On: 07/28/2025 6:25 AM
--- NOTE | 2025-07-28 14:17 | PCM.POSTANE2 ---
Anesthesia Postop Eval I Sum Postop Eval Completion status Anesthesia document: Postop Eval 1 completed: Yes Anesthesia Postop Eval I Summary Anesthesia Postop Eval I Summary: Anesthesia Postop Eval I: Assessment Summary Airway patent Yes 07/28/25 07:27 [email or web address] Spontaneous unlabored Yes 07/28/25 07:27 [email or web address] respirations Mental status Awake,Calm 07/28/25 07:27 [email or web address] nausea No 07/28/25 07:27 [email or web address] Vomiting No 07/28/25 07:27 [email or web address] Anesthesia Postop Eval I: Fluid Summary Crystalloid volume administer 700 07/28/25 07:27 [email or web address] (ml) Colloids volume administered ( ml) Blood Product volume administered (ml) Total IV fluid infused 700 07/28/25 07:27 [email or web address] Anesthesia Postop Eval I: Summary Notes Anesthesia Complication No 07/28/25 07:27 [email or web address] Anesthesia Complication Comment: Post-operative progress note Anesthesia: Postop Eval II Evaluation Mental status: Awake and Calm Pain Level: 1 nausea: No Vomiting: No Complications Anesthesia Complication: No
== END 2025-07-28 07:55 | disposition home or self-care (01) ==
LOC: EN 05:20 → AC 05:21
PROVIDERS: PCP Family Medicine; Referring Provider Family Medicine; Visit Provider Internal Medicine Gastroenterology
PROC: 0DJD8ZZ Inspection of Lower Intestinal Tract, Via Natural or Artificial Opening Endoscopic (ICD-10-PCS; CPT 45378; principal; 2025-07-28 06:25)
DX: R10.9 Unspecified abdominal pain (principal); K57.30 Diverticulosis of large intestine without perforation or abscess without bleeding; I10 Essential (primary) hypertension; F41.9 Anxiety disorder, unspecified; Z90.49 Acquired absence of other specified parts of digestive tract; G47.30 Sleep apnea, unspecified; Z99.89 Dependence on other enabling machines and devices; Z79.899 Other long term (current) drug therapy; F32.A Depression, unspecified; K21.9 Gastro-esophageal reflux disease without esophagitis; Z96.649 Presence of unspecified artificial hip joint; K63.89 Other specified diseases of intestine; K52.839 Microscopic colitis, unspecified
CPT/HCPCS: 45380; 88305; 88312; J2405